=== PATIENT | female | born 1970 | race Caucasian/White ===

== ENCOUNTER 2024-08-09 12:19 | Outpatient (AMB) | payer OTHER, SELFPAY ==
--- NOTE | 2024-08-09 12:26 | A.OFFVIS_ITS ---
Vital Signs 08/09/24 12:29 Height 5 ft 6.34 in Weight 180 lb 5.41 oz BMI 28.8 BP 120/80 Blood Pressure Location Lt brachial Position Sitting Pulse 78 Pulse Source Pulse Oximeter Pulse Oximetry (%) 98 Oxygen Delivery Method Room Air Intake Visit Reasons: OA Intake Note: Patient presents today for a OA follow up. Pt states that her yolis are swollen and joint pain. Allergies Penicillins Allergy (Severe, Verified 08/09/24 12:31) throat swelling HPI HPI OA: Details: I [facility]. Patient was scheduled in follow-up slot. She has a new patient to [facility]. 07/28 she noticed increase swelling in hands, joint pain with knee pain. She went to urgent care who noticed swelling in lymph nodes. Strep throat, flu and covid- 19 negative. Rings are tight on fingers. Uses motrin 400mg BID. 06/25 she had influenza virus. She felt sick for 10 days-14 days. She had fevers for at least 10 days, body aches, cough with phlegm. CXR negative. She was treated with Tamiflu She only had one episode of raynauds a long time ago when she was at her daughter's hockey practice. [facility] Medical History (Updated 08/09/24 @ 13:08 by Nakul Stratton MD) Scoliosis H/O Raynaud's syndrome Family History (Updated 08/09/24 @ 12:33 by Dafne Lopez CMA) Mother Lung cancer Raynauds disease Review of Systems Const All systems reviewed & are unremarkable except as noted in HPI and below Physical Exam Vital Signs: Last Vital Signs Pulse 78 08/09/24 12:29 BP 120/80 08/09/24 12:29 Pulse Ox 98 08/09/24 12:29 Oxygen Delivery Method Room Air 08/09/24 12:29 BMI result Body Mass Index 28.8 Const Other: General: Comfortable CVS: RRR Respiratory: clear to auscultation bilaterally. Good respiratory effort Skin: No lesions seen MSK: Tender to palpate right 5th PIP with synovitis present. Tender left 1st MCP. She is able to blank driller her hands. Tender bilateral knees, ankles and MTPs. Normal range of motion of upper extremities and lower extremities. Assessment & Plan Assessment & Plan (1) Polyarthritis: Comment: In setting of recent influenza infection. She has mild synovitis of right 5th PIP. I am concerned her recent polyarthralgias has led to her developing reactive arthritis. We discussed natural course of reactive arthritis and management. Code(s): M13.0 - Polyarthritis, unspecified Category: Medical Plan: Baseline labs ordered After lab results are back, we will send prescription for naproxen 375 mg b.i.d., which will replace ibuprofen Return to clinic in 2 months or sooner if needed Orders: Orders C Reactive Protein Today M13.0 - Polyarthritis, unspecified Alanine Aminotransferase Today M13.0 - Polyarthritis, unspecified Creatinine Today M13.0 - Polyarthritis, unspecified Erythrocyte Sedimentation Rate Today M13.0 - Polyarthritis, unspecified Aspartate Amino Transferase Today M13.0 - Polyarthritis, unspecified Complete Blood Count Auto Diff Today M13.0 - Polyarthritis, unspecified Coding Level of Care Code New Pt Level 3 (36816) Diagnoses Polyarthritis M13.0
[2024-08-09 12:29] VITALS: BP 120/80; PULSE 78; O2SAT 98; BMI 28.8
== END 2024-08-09 13:06 | disposition home or self-care (01) ==
LOC: HO.RHES 12:19
PROVIDERS: PCP Family Medicine; Visit Provider Internal Medicine Rheumatology
DX: M13.0 Polyarthritis, unspecified (principal)
CPT/HCPCS: 99203

== ENCOUNTER 2024-08-09 12:19 | Outpatient (REF) | payer OTHER, SELFPAY ==
[2024-08-09 18:07] LABS: MANUAL DIFF FLAG NO
[2024-08-09 18:32] LABS: Basophils Absolute Auto 0.1 X10*3/uL (0.0-0.2); Eosinophils Absolute Auto 0.1 X10*3/uL (0.0-0.4); Eosinophils Percent Auto 1.4 % (0-4); Hematocrit 37.9 % (37.0-47.0); Hemoglobin 12.2 g/dl (12.0-16.0); Imm Gran Abs Auto 0.02 X10*3/uL (0.00-0.03); Imm Gran Pct Auto 0.3 % (0.0-0.4); Lymphocytes Absolute Auto 2.4 X10*3/uL (1.2-4.9); Lymphocytes Percent Auto 33.9 % (20-40); Mean Corpuscular HGB Conc 32.2 g/dl (31.0-35.0); Mean Corpuscular Hemoglobin 27.9 pg (27.0-33.0); Mean Corpuscular Volume 86.5 fL (80.0-98.0); Mean Platelet Volume 10.2 fL (9.4-12.3); Monocytes Absolute Auto 0.5 X10*3/uL (0.1-1.2); Monocytes Percent Auto 6.5 % (2-11); Neutrophils Absolute Auto 4.1 x10*3/uL (2.0-8.3); Neutrophils Percent Auto 56.9 % (45-73); Platelet Count 367 X10*3/uL (160-400); Red Blood Count 4.38 X10*6/uL (4.20-5.50); Red Cell Distribution Width 13.6 % (11.0-16.0); White Blood Count 7.1 X10*3/uL (4.8-10.8)
[2024-08-09 18:39] LABS: Alanine Aminotransferase 14 U/L (0-31); Aspartate Amino Transferase 18 U/L (5-31); C Reactive Protein 1.58 mg/dL (< or = 0.50); Estimated Glomerular Filt Rate > 60
[2024-08-09 19:20] LABS: Erythrocyte Sedimentation Rate 22 MM/HR (0-20)
== END 2024-08-09 12:20 | disposition home or self-care (01) ==
LOC: HO.HKASLDS 12:19
PROVIDERS: PCP Family Medicine; Visit Provider Internal Medicine Rheumatology
DX: M13.0 Polyarthritis, unspecified (principal)
CPT/HCPCS: 36415; 82565; 84450; 84460; 85025; 85652; 86140

== ENCOUNTER 2024-10-10 13:55 | Outpatient (AMB) | payer OTHER, SELFPAY ==
--- NOTE | 2024-10-10 13:58 | A.OFFVIS_ITS ---
Vital Signs 10/10/24 13:59 Height 5 ft 6.34 in Weight 186 lb 8.177 oz BMI 29.8 BP 120/68 Blood Pressure Location Lt brachial Position Sitting Pulse 91 Pulse Source Pulse Oximeter Pulse Oximetry (%) 98 Oxygen Delivery Method Room Air Intake Visit Reasons: 2 Months Intake Note: Patient presents today for a OA follow up. Allergies Penicillins Allergy (Severe, Verified 10/10/24 14:01) throat swelling HPI HPI 2 Months: Details: She has had reduction in pain in her right 5th finger. She has improved movement. Left thumb is painful. Morning stiffness 30 minutes. She has been experiencing GERD since starting naproxen. In the past on methylprednisolone she had haves and increase mass on upper back. She did not feel well on prednisone in the past used to treat MS. She had a fall in September. She is currently seeing MS specialist. She has noted lymph nodes enlarged in her neck for a year. No precipitating factor. [facility] Medical History (Updated 10/10/24 @ 14:32 by Nakul Stratton MD) Scoliosis H/O Raynaud's syndrome Family History (Updated 08/09/24 @ 12:33 by Dafne Lopez CMA) Mother Lung cancer Raynauds disease Physical Exam Vital Signs: Last Vital Signs Pulse 91 10/10/24 13:59 BP 120/68 10/10/24 13:59 Pulse Ox 98 10/10/24 13:59 Oxygen Delivery Method Room Air 10/10/24 13:59 BMI result Body Mass Index 29.8 Const Other: General: Comfortable CVS: RRR Respiratory: clear to auscultation bilaterally. Good respiratory effort Lymph nodes: Prominent right submandibular lymph node enlargement with pain on palpation. Palpable left submandibular lymph node. Skin: No lesions seen MSK: Tender to palpate right 5th PIP without synovitis present. Tender left 1st MCP. She is able to cook mayonnaise her hands. Tender bilateral ankles. Normal range of motion of upper extremities and lower extremities. Assessment & Plan Assessment & Plan (1) Reactive arthritis: Comment: In setting of influenza 07/2024 causing synovitis and pain in hands. Improvement on naproxen but she is experiencing GERD. Code(s): M02.30 - Juan Antonio's disease, unspecified site Category: Medical Plan: PPI omeprazole prescribed. Patient will call office when GERD symptoms have resolved. She would like to avoid prednisone if possible to treat inflammatory arthritis due to previous history of experiencing side effects on systemic glucocorticoids. I will then prescribed celecoxib 200 mg twice a day with GI prophylaxis omeprazole 20 mg daily while on NSAID. Return to clinic in 3 months (2) Submandibular lymphadenopathy: Comment: 1 year history Code(s): R59.0 - Localized enlarged lymph nodes Category: Medical Plan: PCP follow up with consideration of soft tissue ultrasound neck for further evaluation Medications: New omeprazole Take 1 tablet in the morning on empty stomach. 20 mg PO DAILY 30 caps 1RF Discontinued naproxen Take 1 tablet twice a day with food. Avoid ibuprofen. Okay to take acetaminophen if needed for pain control. Discontinued Reason: Doctor's Order 375 mg PO BID 60 tabs 2RF Coding Level of Care Code Est Pt Level 4 (37621) Complex EM visit Add On G2211 Diagnoses Reactive arthritis M02.30 Submandibular lymphadenopathy R59.0
[2024-10-10 13:59] VITALS: BP 120/68; PULSE 91; O2SAT 98; BMI 29.8
--- OUTSIDE RECORDS SUMMARY | 2024-10-10 14:26 | XMS_ITS ---
Author Name [facility] Organization Unknown History of Medication Use Medication Directions Dispensed Refills Start Date End Date Stat us Lidocaine ViscousTak e 15 ml (mucous membrane) every 3 hours PRN for 5 days (swish and spit)[id number] 3 hoursmucous [id number]% 05/23/2023 active No medication inform ation recorded active Problems Problem Status Onset Date Problem Type Date of Resoluti on Source Urinary tract infection, site not specified active 2023-12-22 ProblemAct [facility]_PHYSON E Multiple sclerosis active ProblemAct CT_PHYSONE Encounters Encounter Type Encounter Reason Primary Diagnosis Location Date Ambulatory [facility] 05/23/2023 Care Team Organization Name Specialty Phone Email Start Date End Da te [facility] Not Disclosed Primary Care 06/12/2023 [facility] Not Disclosed Primary Care 06/12/2023 [facility] 024 05/23/2023 [facility] 024 [facility] provided No Primary Care 04/19/2022 01/09/2024 [facility], [facility]. No provided Primary Care 03/22/2022 022
--- OUTSIDE RECORDS SUMMARY | 2024-10-10 14:26 | XMS_ITS | Patient Health Record ---
Author Organization [employer] [facility] Address [address] [place] [address] Care Team Providers Care Kitchen Helper Name Role Phone Regi Barrow Unavailable [phone] Reason For Referral No Information Medications Medication SIG (Take, Route, Fr equency, Duration) Notes Start Date End Date Status Provigil 200MG 1 ORAL daily for -3 Simon-MJ 09/06/2012 Active Lyrica 150MG 1 ORAL three times daily for -3 Simon-MJ 09/06 Active Problems Problem Type SNOMED Code ICD Code Onset Dates Problem Status W/U Status Risk Notes Problem Gynecological examination normal ([id number]) Routine gynecological examination (V72.31) Active confirmed Major Plan Of Treatment No Information Insurance Providers Payer Name Payer Address Payer Phone Subscriber Number Group Number Insured Name Patient Relationship to Insured Coverage Start Date Coverage End Date [employer] [address] [address] [place] [address] [id number] BELA SAPP Self - patient is the insured
== END 2024-10-10 14:29 | disposition home or self-care (01) ==
PROVIDERS: PCP Family Medicine; Visit Provider Internal Medicine Rheumatology
DX: M02.30 Reiter's disease, unspecified site (principal); R59.0 Localized enlarged lymph nodes
CPT/HCPCS: 99214; G2211

== ENCOUNTER 2024-12-26 12:58 | Outpatient (AMB) | payer OTHER, SELFPAY ==
--- NOTE | 2024-12-26 13:03 | MHC.OFFVIS ---
Vital Signs 12/26/24 13:04 Height 5 ft 6 in Weight 190 lb 8 oz BMI 30.7 BP 130/80 Blood Pressure Location Rt brachial Position Sitting Pulse 88 Pulse Source Pulse Oximeter Pulse Oximetry (%) 99 Oxygen Delivery Method Room Air Intake Visit Reasons: 3 Months Intake Note: Patient presents today for a OA follow up. c Accompanied by: Self / Same As Patient Allergies Penicillins Allergy (Severe, Verified 12/26/24 13:04) throat swelling HPI HPI 3 Months: Details: SHe has pain in bilateral wrists, ankles, knees and upper back. Having a hard time getting rings off. She has paraesthesia in her face, lips, left hand. In the past she had an EMG left arm for workup of left arm radiculopathy. She denies having carpal tunnel syndrome. Eventually left arm radicular symptoms resolved. Ultrasound neck soft tissue showed enlarged lymph nodes likely reactive. [facility] Medical History Scoliosis H/O Raynaud's syndrome Family History Mother Lung cancer Raynauds disease Physical Exam Vital Signs: Last Vital Signs Pulse 88 12/26/24 13:04 BP 130/80 12/26/24 13:04 Pulse Ox 99 12/26/24 13:04 Oxygen Delivery Method Room Air 12/26/24 13:04 BMI result Body Mass Index 30.7 Const Other: General: Comfortable CVS: RRR Respiratory: clear to auscultation bilaterally. Good respiratory effort Lymph nodes: No cervical lymphadenopathy palpated Skin: No lesions seen MSK: Tender bilateral wrists. No synovitis. She is able to conveyor monitor her hands. Tender bilateral ankles. Normal range of motion of upper extremities and lower extremities. Assessment & Plan Assessment & Plan (1) Reactive arthritis: Comment: In setting of influenza 07/2024 causing synovitis and pain in hands. She does not have synovitis on exam but continues to have bilateral wrists pain. GERD has resolved. We discussed treating her joint symptoms with NSAID. Code(s): M02.30 - Juan Antonio's disease, unspecified site Category: Medical Plan: X-ray bilateral wrists ordered Labs prior to starting NSAID ordered Meloxicam 15 mg daily ordered Return to clinic in 3 months (2) Bilateral wrist pain: Code(s): M25.531 - Pain in right wrist; M25.532 - Pain in left wrist Category: Medical Plan: See above Orders: Orders XR Wrist Ajay min 3V Today M13.0 - Polyarthritis, unspecified, M25.531 - Pain in right wrist, M25.532 - Pain in left wrist Alanine Aminotransferase Today M13.0 - Polyarthritis, unspecified Aspartate Amino Transferase Today M13.0 - Polyarthritis, unspecified C Reactive Protein Today Z79.899 - Other garage hand (current) drug therapy Creatinine Today M13.0 - Polyarthritis, unspecified Erythrocyte Sedimentation Rate Today Z79.899 - Other garage hand (current) drug therapy Medications: New meloxicam Take with food 15 mg PO DAILY 30 tabs 2RF Coding Level of Care Code Est Pt Level 4 (65404) Complex EM visit Add On G2211 Diagnoses Reactive arthritis M02.30 Bilateral wrist pain M25.531; M25.532 Time Spent (min) 20
[2024-12-26 13:04] VITALS: BP 130/80; PULSE 88; O2SAT 99; BMI 30.7
--- OUTSIDE RECORDS SUMMARY | 2024-12-26 13:31 | XMS_ITS | Encounter Summary ---
Author Organization [facility] Address [address] [place] [address] Phone Care Team Providers Care Infusion Pharmacist Name Role Phone Khadra Barba MD Primary Care Provider Shaggy Hopkins MD Unavailable [phone] Danny Emanuel MD Primary Care Provider [phone] Encounter Details Date Type Department Care Team (Late st Contact Info) Description 12/06/2016 Procedure Pass [facility] MR Imaging, [address] [place] [address] Social History Tobacco Use Types Packs/Day Years Used Date Smoking Tobacco: Never Alcohol Use Standard Drinks/Week Comments No 0 (1 standard drink = 0.6 oz pur e alcohol) Comments Unknown Sex and Gender Information Value Date Recorded Sex Assigned at Female 10/08/2019 1:35 PM EDT Legal Sex Female 7:37 PM EST Gender Identity Not on file Sexual Orientation Not on file documented as of this encounter Plan of Treatment Upcoming Encounters Date Type Department Care Team (Late st Contact Info) Description 10/19/2024 Procedure Pass [facility] MR Imaging, [address] [place] [address] 10/19/2024 Procedure Pass [facility] MR Imaging, [address] [place] [address] 10/19/2024 Procedure Pass [facility] MR Imaging, [address] [place] [address] 05/01/2025 10:40 AM EST Appointment [facility] MR Imaging, [address] [place] [address] Johnson Ulloa MD [address] [address] [email or web address] 05/01/2025 2:00 PM EST Office Visit [facility], Department of Neurology [address] [place] [address] Johnson Ulloa MD [address] [address] [email or web address] documented as of this encounter Visit Diagnoses Not on filedocumented in this encounter Care Teams Infusion Pharmacist Relationship Specialty Start Date End Date Khadra Barba MD [address] [place] [address] PCP - General 09/26/14 09/12/23 Danny Emanuel MD [address] [place] [address] PCP - General Internal Medicine 09/13/23 Shaggy Hopkins MD [address] [address] Historical LMR Provider 10/03/14 documented as of this encounter Additional Source Comments The information contained in this document represents components of the legal health record. It is not the complete legal health record.[facility]
--- OUTSIDE RECORDS SUMMARY | 2024-12-26 13:31 | XMS_ITS | Patient Health Record ---
Author Organization [facility] Address [address] [place] [address] Care Team Providers Care Recruiter Coordinator Name Role Phone Regi Barrow Unavailable [phone] Reason For Referral No Information Medications Medication SIG (Take, Route, Fr equency, Duration) Notes Start Date End Date Status Provigil 200MG 1 ORAL daily; Duration: -3 Simon-MJ 09/07/19 13 Active Lyrica 150MG 1 ORAL three times d aily; Duration: -3 Simon-MJ 09/06/2012 Active Problems Problem Type SNOMED Code ICD Code Onset Dates Problem Status W/U Status Risk Notes Problem Routine gynecological examination (V72.31) Active confirmed Major Plan Of Treatment No Information Insurance Providers Payer Name Payer Address Payer Phone Subscriber Number Group Number Insured Name Patient Relationship to Insured Coverage Start Date Coverage End Date [employer] [address] [address] [place] Hernandez, [place] [address] [id number] BELA SAPP Self - patient is the insured
--- OUTSIDE RECORDS SUMMARY | 2024-12-26 13:31 | XMS_ITS ---
Author Name [facility] Organization Unknown History of Medication Use Medication Directions Dispensed Refills Start Date End Date Stat us Lidocaine ViscousTak e 15 ml (mucous membrane) every 3 hours PRN for 5 days (swish and spit)[id number] 3 hoursmucous btetyney9hhpbuiknvn2% 05/23/2023 active No medication inform ation recorded [...] Care 024 05/23/2023 [facility] 024 [facility] provided No Primary Care 04/19/2022 01/09/2024 [facility], [facility]. No provided Primary Care 03/22/2022 022
== END 2024-12-26 13:39 | disposition home or self-care (01) ==
LOC: HO.RHES 12:58
PROVIDERS: PCP Family Medicine; Visit Provider Internal Medicine Rheumatology
DX: M02.30 Reiter's disease, unspecified site (principal); M25.531 Pain in right wrist; M25.532 Pain in left wrist
CPT/HCPCS: 99214; G2211

== ENCOUNTER 2024-12-26 12:58 | Outpatient (REF) | payer OTHER, SELFPAY ==
[2024-12-26 18:56] LABS: Alanine Aminotransferase 24 U/L (0-31); Aspartate Amino Transferase 22 U/L (5-31); Estimated Glomerular Filt Rate > 60
== END 2024-12-26 12:59 | disposition home or self-care (01) ==
LOC: HO.HKASLDS 12:58
PROVIDERS: PCP Family Medicine; Visit Provider Internal Medicine Rheumatology
DX: M25.531 Pain in right wrist (principal); M25.532 Pain in left wrist; M02.331 Reiter's disease, right wrist; M02.332 Reiter's disease, left wrist; M25.562 Pain in left knee; M25.561 Pain in right knee; M54.9 Dorsalgia, unspecified; M13.0 Polyarthritis, unspecified; Z79.899 Other long term (current) drug therapy
CPT/HCPCS: 36415; 82565; 84450; 84460; 85652; 86140

== ENCOUNTER 2025-01-30 13:00 | Outpatient (REF) | payer OTHER, SELFPAY ==
--- NOTE | ~2025-01-30 | XR_ITS ---
Exam: XR WRIST 3 OR MORE VIEWS BILATERAL, bilateral hand x-rays TECHNIQUE: Four views upper extremity, bilateral wrists INDICATION: M13.0 - Polyarthritis, unspecified COMPARISON: None available. FINDINGS: RIGHT WRIST: There is no visible fracture line, joint diastases, offset, or definite erosions. There is faint chondrocalcinosis present in the lunotriquetral joint. LEFT WRIST: There is no visible fracture line, joint diastases, offset, definite erosions or other abnormalities. XR/XR Wrist Ajay min 3V IMPRESSION: Right wrist: Faint chondrocalcinosis is visible along the lunotriquetral joint on the scaphoid view Left wrist: Unremarkable Electronically signed by: Hank Burris MD 01/30/2025 01:31 PM EDT
--- OUTSIDE RECORDS SUMMARY | 2025-01-30 16:01 | XMS_ITS | Encounter Summary ---
Author Organization [facility] Address [address] [place] [address] Phone Care Team Providers Care Service Team Leader Name Role Phone Khadra Barba MD Primary Care Provider Shaggy Hopkins MD Unavailable [phone] Danny Emanuel MD Primary Care Provider [phone] Encounter Details Date Type Department Care Team (Late st Contact Info) Description 08/07/2018 Procedure Pass [facility] MR Imaging, [address] [place] [address] Social History Tobacco Use Types Packs/Day Years Used Date Smoking Tobacco: Never Smokeless Tobacco: Never Alcohol Use Standard Drinks/Week Comments [...] st Contact Info) Description 10/19/2024 Procedure Pass [facility] MR Imaging, [address] [place] [address] 10/19/2024 Procedure Pass [facility] MR Imaging, [address] [place] [address] 10/19/2024 Procedure Pass [facility] MR Imaging, [address] [place] [address] 02/05/2025 5:20 PM EDT Appointment [facility] MR Imaging, [address] [place] [address] Johnson Ulloa MD [address] [place] [address] [email or web address] 02/07/2025 8:30 AM EDT Telemedicine [facility], Department of Neurology [address] [place] [address] Johnson Ulloa MD [address] [place] [address] [email or web address] documented as of this encounter Visit Diagnoses Not on filedocumented in this encounter Care Teams Service Team Leader Relationship Specialty Start Date End Date Khadra Barba MD [address] [place] [address] PCP - General 09/26/14 09/12/23 Danny Emanuel MD [address] [place] [address] PCP - General Internal Medicine 09/13/23 Shaggy Hopkins MD [address] [address] Historical LMR Provider 10/03/14 documented as of this encounter Additional Source Comments The information contained in this document represents components of the legal health record. It is not the complete legal health record.[facility]
--- OUTSIDE RECORDS SUMMARY | 2025-01-30 16:01 | XMS_ITS | Encounter Summary ---
Author Organization [facility] Address [address] [place] [address] Phone Care Team Providers Care Physics Department Chair Name Role Phone Khadra Barba MD Primary Care Provider Shaggy Hopkins MD Unavailable [phone] Danny Emanuel MD Primary Care Provider [phone] Encounter Details Date Type Department Care Team (Late st Contact Info) Description 07/27/2023 Procedure Pass [facility] MR Imaging, [address] [place] [address] Social History Tobacco Use Types Packs/Day Years Used Date Smoking Tobacco: Never Smokeless Tobacco: Never Alcohol Use Standard Drinks/Week Comments No 0 (1 standard drink = 0.6 oz pur e alcohol) Education Answer Date Recorded Are you interested in more education? Not on jeff e 09/16/2022 Are you concerned about learning? Not on file 09/16/2022 No 09/16/2022 No 09/16/2022 Digital Access Answer Date Recorded No 10/18/2022 No 10/18/2022 Reliable internet access at home? Not on file 10/18/2022 Device with a working camera? Not on file Comments No Sex and Gender Information Value Date Recorded Sex Assigned at Female 10/08/2019 1:35 PM EDT Legal Sex Female 7:37 PM EST Gender Identity Not on file Sexual Orientation Not on file documented as of this encounter Plan of Treatment Upcoming Encounters Date Type Department Care Team (Late st Contact Info) Description 10/19/2024 Procedure Pass [facility] MR Imaging, [address] [place] [address] 10/19/2024 Procedure Pass [facility] MR Imaging, [address] [place] [address] 10/19/2024 Procedure Pass [facility] MR Imaging, [address] [place] [address] 02/05/2025 5:20 PM EDT Appointment [facility] MR Imaging, [address] [place] [address] Johnson Ulloa MD [address] [address] [email or web address] 02/07/2025 8:30 AM EDT Telemedicine [facility], Department of Neurology [address] [place] [address] Johnson Ulloa MD [address] [address] [email or web address] documented as of this encounter Visit Diagnoses Not on filedocumented in this encounter Additional Health Concerns Assessment Noted Time PHQ-2 Depression Total Score: 0 08/27/19 21 4:02 PM EDT documented as of this encounter Care Teams Physics Department Chair Relationship Specialty Start Date End Date Khadra Barba MD [address] [place] [address] PCP - General 09/26/14 09/12/23 Danny Emanuel MD [address] [place] [address] PCP - General Internal Medicine 09/13/23 Shaggy Hopkins MD 1 [facility] [address] [place] [address] Historical LMR Provider 10/03/14 documented as of this encounter Additional Source Comments The information contained in this document represents components of the legal health record. It is not the complete legal health record.[facility]
--- OUTSIDE RECORDS SUMMARY | 2025-01-30 16:01 | XMS_ITS | Encounter Summary ---
Author Organization [facility] Address [address] [place] [address] Phone Care Team Providers Care Dining Room Supervisor Name Role Phone Khadra Barba MD Primary Care Provider Shaggy Hopkins MD Unavailable [phone] Danny Emanuel MD Primary Care Provider [phone] Encounter Details Date Type Department Care Team (Late st Contact Info) Description 07/15/2020 Procedure Pass [facility] MR Imaging, [address] [place] [address] Social History Tobacco Use Types Packs/Day Years [...] st Contact Info) Description 10/19/2024 Procedure Pass [facility] MR Imaging, [address] [place] [address] 10/19/2024 Procedure Pass [facility] MR Imaging, [address] [place] [address] 10/19/2024 Procedure Pass [facility] MR Imaging, [address] [place] [address] 02/05/2025 5:20 PM EDT Appointment [facility] MR Imaging, [address] [place] [address] Johnson Ulloa MD [address] [place] [address] [email or web address] 02/07/2025 8:30 AM EDT Telemedicine [facility], Department of Neurology [address] [place] [address] Johnson Ulloa MD [address] [place] [address] [email or web address] documented as of this encounter Visit Diagnoses Not on filedocumented in this encounter Care Teams Dining Room Supervisor Relationship Specialty Start Date End Date Khadra Barba MD [address] [place] [address] PCP - General 09/26/14 09/12/23 Danny Emanuel MD [address] [place] [address] PCP - General Internal Medicine 09/13/23 Shaggy Hopkins MD [address] [address] Historical LMR Provider 10/03/14 documented as of this encounter Additional Source Comments The information contained in this document represents components of the legal health record. It is not the complete legal health record.[facility]
--- OUTSIDE RECORDS SUMMARY | 2025-01-30 16:01 | XMS_ITS | Encounter Summary ---
Author Organization [facility] Address [address] [place] [address] Phone Care Team Providers Care Application Architect Manager Name Role Phone Khadra Barba MD Primary Care Provider Shaggy Hopkins MD Unavailable [phone] Danny Emanuel MD Primary Care Provider [phone] Encounter Details Date Type Department Care Team (Late st Contact Info) Description 12/27/2017 Procedure Pass [facility] MR Imaging, [place] [address] [place] [address] Social History Tobacco Use Types Packs/Day Years [...] st Contact Info) Description 10/19/2024 Procedure Pass [facility] MR Imaging, [place] [address] [place] [address] 10/19/2024 Procedure Pass [facility] MR Imaging, [place] [address] [place] [address] 10/19/2024 Procedure Pass [facility] MR Imaging, [place] [address] [place] [address] 02/05/2025 5:20 PM EDT Appointment [facility] MR Imaging, [place] [address] [place] [address] Johnson Ulloa MD [address] [place] [address] [email or web address] 02/07/2025 8:30 AM EDT Telemedicine [facility] and Women[facility], Department of Neurology [address] [place] [address] Johnson Ulloa MD [address] [place] [address] [email or web address] documented as of this encounter Visit Diagnoses Not on filedocumented in this encounter Care Teams Application Architect Manager Relationship Specialty Start Date End Date Khadra Barba MD [address] [place] [address] PCP - General 09/26/14 09/12/23 Danny Emanuel MD [address] [place] [address] PCP - General Internal Medicine 09/13/23 Shaggy Hopkins MD [address] [address] Historical LMR Provider 10/03/14 documented as of this encounter Additional Source Comments The information contained in this document represents components of the legal health record. It is not the complete legal health record.[facility]
--- OUTSIDE RECORDS SUMMARY | 2025-01-30 16:01 | XMS_ITS | Encounter Summary ---
Author Organization [facility] Address [address] [place] [address] Phone Care Team Providers Care Grinder Carbon Plant Name Role Phone Khadra Barba MD Primary Care Provider Shaggy Hopkins MD Unavailable [phone] Danny Emanuel MD Primary Care Provider Encounter Details Date Type Department Care Team (Late st Contact Info) Description 03/19/2021 Procedure Pass [facility] Radiology [address] [facility] [address] [place] [address] Social History Tobacco Use Types Packs/Day Years Used Date Smoking Tobacco: Never Smokeless Tobacco: Never Alcohol Use Standard Drinks/Week Comments No 0 (1 standard drink = 0.6 oz pur e alcohol) Comments No Sex and Gender Information Value Date Recorded Sex Assigned at Female 10/08/2019 1:35 PM EDT Legal Sex Female 7:37 PM EST Gender Identity Not on file Sexual Orientation Not on file documented as of this encounter Plan of Treatment Upcoming Encounters Date Type Department Care Team (Late st Contact Info) Description 10/19/2024 Procedure Pass [facility] MR Imaging, [place] [address] [place] [address] 10/19/2024 Procedure Pass [facility] MR Imaging, [place] [address] [place] [address] 10/19/2024 Procedure Pass [facility] MR Imaging, [place] [address] [place] [address] 02/05/2025 5:20 PM EDT Appointment [facility] MR Imaging, [place] [address] [place] [address] Johnson Ulloa MD [address] [place] [address] [email or web address] 02/07/2025 8:30 AM EDT Telemedicine [facility] Women[facility], Department of Neurology [address] [place] [address] Johnson Ulloa MD [address] [place] [address] [email or web address] documented as of this encounter Visit Diagnoses Not on filedocumented in this encounter Additional Health Concerns Assessment Noted Time PHQ-2 Depression Total Score: 0 08/27/19 21 4:02 PM EDT documented as of this encounter Care Teams Grinder Carbon Plant Relationship Specialty Start Date End Date Khadra Barba MD [address] [place] [address] PCP - General 09/26/14 09/12/23 Danny Emanuel MD [address] [place] [address] PCP - General Internal Medicine 09/13/23 Shaggy Hopkins MD [address] [address] Historical LMR Provider 10/03/14 documented as of this encounter Additional Source Comments The information contained in this document represents components of the legal health record. It is not the complete legal health record.[facility]
--- OUTSIDE RECORDS SUMMARY | 2025-01-30 16:01 | XMS_ITS | Encounter Summary ---
Author Organization [facility] Address [address] [place] [address] Phone Care Team Providers Care Roof Assembler Name Role Phone Khadra Barba MD Primary Care Provider Shaggy Hopkins MD Unavailable [phone] Danny Emanuel MD Primary Care Provider [phone] Encounter Details Date Type Department Care Team (Late st Contact Info) Description 08/07/2018 Procedure Pass [facility] MR Imaging, [place] [address] [place] [address] Social History Tobacco Use Types Packs/Day Years [...] st Contact Info) Description 10/19/2024 Procedure Pass [facility] MR Imaging, [place] [address] [place] [address] 10/19/2024 Procedure Pass [facility] MR Imaging, [place] [address] [place] [address] 10/19/2024 Procedure Pass [facility] MR Imaging, [place] [address] [place] [address] 02/05/2025 5:20 PM EDT Appointment [facility] MR Imaging, [place] [address] [place] [address] Johnson Ulloa MD [address] [place] [address] [email or web address] 02/07/2025 8:30 AM EDT Telemedicine [facility] and [facility], Department of Neurology [address] [place] [address] Johnson Ulloa MD [address] [place] [address] [email or web address] documented as of this encounter Visit Diagnoses Not on filedocumented in this encounter Care Teams Roof Assembler Relationship Specialty Start Date End Date Khadra Barba MD [address] [place] [address] PCP - General 09/26/14 09/12/23 Danny Emanuel MD [address] [place] [address] PCP - General Internal Medicine 09/13/23 Shaggy Hopkins MD [address] [address] Historical LMR Provider 10/03/14 documented as of this encounter Additional Source Comments The information contained in this document represents components of the legal health record. It is not the complete legal health record.[facility]
--- OUTSIDE RECORDS SUMMARY | 2025-01-30 16:01 | XMS_ITS | Encounter Summary ---
Author Organization [facility] Address [address] [place] [address] Phone Care Team Providers Care Egg Breaker Name Role Phone Khadra Barba MD Primary Care Provider Shaggy Hopkins MD Unavailable [phone] Danny Emanuel MD Primary Care Provider [phone] Reason for Visit * Reason Onset Date Comments Medication Prior Authorization 04/09/2016 Encounter Details Date Type Department Care Team (Late st Contact Info) Description 04/09/2016 Telephone [facility] [address] [email or web address] Medication Prior Authorization Social History Tobacco Use Types Packs/Day Years Used Date Smoking Tobacco: Never Comments Unknown Sex and Gender Information Value Date Recorded Sex Assigned at Female 10/08/2019 1:35 PM EDT Legal Sex Female 7:37 PM EST Gender Identity Not on file Sexual Orientation Not on file documented as of this encounter Progress Notes * Shaggy Hopkins MD - 04/29/2016 2:20 PM EST Called to discuss rituximab and whether or not she was going to start with Sasha and left messagewith family member that I called. * Paulo Danielle - 04/09/2016 7:38 AM EST Per Aeloida Kolb PA denial overturned after P2P. Martine MURRAY #[id number]. Valid: 03/28/2016--09/25/2016. 6 infusions approved. --BD documented in this encounter Plan of Treatment Upcoming Encounters Date Type Department Care Team (Late st Contact Info) Description 10/19/2024 Procedure Pass [facility] MR Imaging, [facility] [address] [place] [address] 10/19/2024 Procedure Pass [facility] MR Imaging, [facility] [address] [place] [address] 10/19/2024 Procedure Pass [facility] MR Imaging, [facility] [address] [place] [address] 02/05/2025 5:20 PM EDT Appointment [facility] Imaging, [place] [address] Johnson Ulloa MD [address] [place] [address] [email or web address] 02/07/2025 8:30 AM EDT Telemedicine [facility] and [facility], Department of Neurology [address] [place] [address] Johnson Ulloa MD [address] [place] [address] [email or web address] documented as of this encounter Visit Diagnoses Not on filedocumented in this encounter Care Teams Egg Breaker Relationship Specialty Start Date End Date Khadra Barba MD [address] [place] [address] PCP - General 09/26/14 09/12/23 Danny Emanuel MD [address] [place] [address] PCP - General Internal Medicine 09/13/23 Shaggy Hopkins MD 1 [place] [address] Historical LMR Provider 10/03/14 documented as of this encounter Additional Source Comments The information contained in this document represents components of the legal health record. It is not the complete legal health record.[facility]
--- OUTSIDE RECORDS SUMMARY | 2025-01-30 16:01 | XMS_ITS | Encounter Summary ---
Author Organization [facility] Address [address] [place] [address] Phone Care Team Providers Care Astrophysics Teacher Name Role Phone Khadra Barba MD Primary Care Provider Shaggy Hopkins MD Unavailable [phone] Danny Emanuel MD Primary Care Provider [phone] Encounter Details Date Type Department Care Team (Late st Contact Info) Description 12/27/2017 Procedure Pass [facility] MR Imaging, [place] [address] [place] [address] Social History Tobacco Use Types Packs/Day Years [...] st Contact Info) Description 10/19/2024 Procedure Pass [facility] MR Imaging, [place] [address] [place] [address] 10/19/2024 Procedure Pass [facility] MR Imaging, [place] [address] [place] [address] 10/19/2024 Procedure Pass [facility] MR Imaging, [place] [address] [place] [address] 02/05/2025 5:20 PM EDT Appointment [facility] MR Imaging, [place] [address] [place] [address] Johnson Ulloa MD [address] [place] [address] [email or web address] 02/07/2025 8:30 AM EDT Telemedicine [facility] and [facility], Department of Neurology [address] [place] [address] Johnson Ulloa MD [address] [place] [address] [email or web address] documented as of this encounter Visit Diagnoses Not on filedocumented in this encounter Care Teams Astrophysics Teacher Relationship Specialty Start Date End Date Khadra Barba MD [address] [place] [address] PCP - General 09/26/14 09/12/23 Danny Emanuel MD [address] [place] [address] PCP - General Internal Medicine 09/13/23 Shaggy Hopkins MD [address] [address] Historical LMR Provider 10/03/14 documented as of this encounter Additional Source Comments The information contained in this document represents components of the legal health record. It is not the complete legal health record.[facility]
--- OUTSIDE RECORDS SUMMARY | 2025-01-30 16:01 | XMS_ITS | Encounter Summary ---
Author Organization [facility] Address [address] [place] [address] Phone Care Team Providers Care Cash Person Name Role Phone Khadra Barba MD Primary Care Provider Shaggy Hopkins MD Unavailable [phone] Danny Emanuel MD Primary Care Provider [phone] Encounter Details Date Type Department Care Team (Late st Contact Info) Description 09/04/2020 Procedure Pass [facility] [address] [place] [address] Social History Tobacco Use Types Packs/Day Years [...] st Contact Info) Description 10/19/2024 Procedure Pass [facility] MR Imaging, [place] [address] [place] [address] 10/19/2024 Procedure Pass [facility] MR Imaging, [place] [address] [place] [address] 10/19/2024 Procedure Pass [facility] MR Imaging, [place] [address] [place] [address] 02/05/2025 5:20 PM EDT Appointment [facility] MR Imaging, [place] [address] [place] [address] Johnson Ulloa MD [address] [place] [address] [email or web address] 02/07/2025 8:30 AM EDT Telemedicine [facility], Department of Neurology [address] [place] [address] Johnson Ulloa MD [address] [place] [address] [email or web address] documented as of this encounter Visit Diagnoses Not on filedocumented in this encounter Additional Health Concerns Assessment Noted Time PHQ-2 Depression Total Score: 0 08/27/19 21 4:02 PM EDT documented as of this encounter Care Teams Cash Person Relationship Specialty Start Date End Date Khadra Barba MD [address] [place] [address] PCP - General 09/26/14 09/12/23 Danny Emanuel MD [address] [place] [address] PCP - General Internal Medicine 09/13/23 Shaggy Hopkins MD [address] [address] Historical LMR Provider 10/03/14 documented as of this encounter Additional Source Comments The information contained in this document represents components of the legal health record. It is not the complete legal health record.[facility]
--- OUTSIDE RECORDS SUMMARY | 2025-01-30 16:01 | XMS_ITS | Encounter Summary ---
Author Organization [facility] Address [address] [place] [address] Phone Care Team Providers Care Locomotive Engineer Name Role Phone Khadra Barba MD Primary Care Provider Shaggy Hopkins MD Unavailable [phone] Danny Emanuel MD Primary Care Provider [phone] Encounter Details Date Type Department Care Team (Late st Contact Info) Description 12/06/2016 Procedure Pass [facility] MR Imaging, [place] [address] [place] [address] Social History Tobacco Use Types Packs/Day Years [...] st Contact Info) Description 10/19/2024 Procedure Pass [facility] MR Imaging, [place] [address] [place] [address] 10/19/2024 Procedure Pass [facility] MR Imaging, [place] [address] [place] [address] 10/19/2024 Procedure Pass [facility] MR Imaging, [place] [address] [place] [address] 02/05/2025 5:20 PM EDT Appointment [facility] MR Imaging, [place] [address] [place] [address] Johnson Ulloa MD [address] [place] [address] [email or web address] 02/07/2025 8:30 AM EDT Telemedicine [facility], Department of Neurology [address] [place] [address] Johnson Ulloa MD [address] [address] [email or web address] documented as of this encounter Visit Diagnoses Not on filedocumented in this encounter Care Teams Locomotive Engineer Relationship Specialty Start Date End Date Khadra Barba MD [address] [place] [address] PCP - General 09/26/14 09/12/23 Danny Emanuel MD [address] [place] [address] PCP - General Internal Medicine 09/13/23 Shaggy Hopkins MD [address] [address] Historical LMR Provider 10/03/14 documented as of this encounter Additional Source Comments The information contained in this document represents components of the legal health record. It is not the complete legal health record.[facility]
--- OUTSIDE RECORDS SUMMARY | 2025-01-30 16:01 | XMS_ITS | Encounter Summary ---
Author Organization [facility] Address [address] [place] [address] Phone Care Team Providers Care Clothing Manager Name Role Phone Kharda Barba MD Primary Care Provider Shaggy Hopkins MD Unavailable [phone] Danny Emanuel MD Primary Care Provider [phone] Encounter Details Date Type Department Care Team (Late st Contact Info) Description 09/25/2020 Procedure Pass [facility], [facility] [address] [place] [address] Social History Tobacco Use Types Packs/Day Years [...] on file documented as of this encounter Functional Status * Calculated C-SSRS Risk Score (Lifetime/Recent) Answer Date of Assessment Author No Risk Indicated 09/25/2020 4:05 PM EDT Cameron Maurer RN * [place] Suicide Severity Rating Scale (Screener/Recent Self-Report) Question Answer Date of Assessment Author 1. Wish to be (Past 1 Month) No 021 4:05 PM EDT Cameron Maurer RN 2. Non-Specific Active Suici artur Thoughts (Past 1 Month) No 09/25/2020 4:05 PM EDT Cameron Maurer, RN 6. Suicidal Behavior (Lifetime) No 1 4:05 PM EDT Cameron Maurer RN documented as of this encounter Plan of Treatment Upcoming Encounters Date Type Department Care Team (Late st Contact Info) Description 10/19/2024 Procedure Pass [facility] MR Imaging, [place] [address] [place] [address] 10/19/2024 Procedure Pass [facility] MR Imaging, [place] [address] [place] [address] 10/19/2024 Procedure Pass [facility] MR Imaging, [place] [address] [place] [address] 02/05/2025 5:20 PM EDT Appointment [facility] MR Imaging, [place] [address] [place] [address] Johnson Ulloa MD [address] [place] [address] [email or web address] 02/07/2025 8:30 AM EDT Telemedicine [facility], Department of Neurology [address] [place] [address] Johnson Ulloa MD [address] [place] [address] [email or web address] documented as of this encounter Visit Diagnoses Not on filedocumented in this encounter Additional Health Concerns Assessment Noted Time PHQ-2 Depression Total Score: 0 08/27/19 21 4:02 PM EDT documented as of this encounter Care Teams Clothing Manager Relationship Specialty Start Date End Date Khadra Barba MD [address] [place] [address] PCP - General 09/26/14 09/12/23 Danny Emanuel MD [address] [place] [address] PCP - General Internal Medicine 09/13/23 Shaggy Hopkins MD 1 [place] [address] Historical LMR Provider 10/03/14 documented as of this encounter Additional Source Comments The information contained in this document represents components of the legal health record. It is not the complete legal health record.[facility]
--- OUTSIDE RECORDS SUMMARY | 2025-01-30 16:01 | XMS_ITS | Encounter Summary ---
Author Organization [facility] Address [address] [place] [address] Phone Care Team Providers Care Cut Off Saw Grader Name Role Phone Shaggy Hopkins MD Unavailable [phone] Danny Emanuel MD Primary Care Provider [phone] Encounter Details Date Type Department Care Team (Late st Contact Info) Description 09/13/2023 Procedure Pass [address] [address] Social History Tobacco Use Types Packs/Day Years [...] st Contact Info) Description 10/19/2024 Procedure Pass [facility] MR Imaging, [place] [address] [place] [address] 10/19/2024 Procedure Pass [facility] MR Imaging, [place] [address] [place] [address] 10/19/2024 Procedure Pass [facility] MR Imaging, [place] [address] [place] [address] 02/05/2025 5:20 PM EDT Appointment [facility] Imaging, [place] [address] [place] [address] Johnson Ulloa MD [address] [address] [email or web address] 02/07/2025 8:30 AM EDT Telemedicine [facility] and Women[facility], Department of Neurology 60 [place] [address] Johnson Ulloa MD [address] [address] [email or web address] documented as of this encounter Visit Diagnoses Not on filedocumented in this encounter Additional Health Concerns Assessment Noted Time PHQ-2 Depression Total Score: 0 08/27/19 21 4:02 PM EDT documented as of this encounter Care Teams Cut Off Saw Grader Relationship Specialty Start Date End Date Danny Emanuel MD [address] [place] [address] PCP - General Internal Medicine 09/13/23 Shaggy Hopkins MD 1 [facility] [address] [place] [address] Historical LMR Provider 10/03/14 documented as of this encounter Additional Source Comments The information contained in this document represents components of the legal health record. It is not the complete legal health record.[facility]
--- OUTSIDE RECORDS SUMMARY | 2025-01-30 16:01 | XMS_ITS | Encounter Summary ---
Author Organization [facility] Address [address] [place] [address] Phone Care Team Providers Care Ticket Agent Name Role Phone Khadra Barba MD Primary Care Provider Shaggy Hopkins MD Unavailable [phone] Danny Emanuel MD Primary Care Provider [phone] Encounter Details Date Type Department Care Team (Late st Contact Info) Description 03/19/[address] [facility] [address] [address] Social History Tobacco Use Types Packs/Day Years [...] on file documented as of this encounter Last Filed Vital Signs Vital Sign Reading Time Taken Comments Blood Pressure - - Pulse - - Temperature - - Respiratory Rate - - Oxygen Saturation - - Inhaled Oxygen Concentration - - Weight 86.2 kg (190 lb) 03/20/2021 5:57 PM EDT Height 165.1 cm (5' 5 ) 03/20/2021 5:57 PM EDT Body Mass Index 31.62 03/20/2021 5:57 PM EDT documented in this encounter Plan of Treatment Upcoming Encounters Date Type Department Care Team (Late st Contact Info) Description 10/19/2024 Procedure Pass [facility] MR Imaging, [place] [address] [place] [address] 10/19/2024 Procedure Pass [facility] MR Imaging, [place] [address] [place] [address] 10/19/2024 Procedure Pass [facility] MR Imaging, [place] [address] [place] [address] 02/05/2025 5:20 PM EDT Appointment [facility] MR Imaging, [place] [address] [place] [address] Johnson Ulloa MD [address] [address] [email or web address] 02/07/2025 8:[address] [facility] and Women's [facility], Department of Neurology [address] [place] [address] Johnson Ulloa MD [address] [address] [email or web address] documented as of this encounter Visit Diagnoses Not on filedocumented in this encounter Additional Health Concerns Assessment Noted Time PHQ-2 Depression Total Score: 0 08/27/19 21 4:02 PM EDT documented as of this encounter Care Teams Ticket Agent Relationship Specialty Start Date End Date Khadra Barba MD [address] [place] [address] PCP - General 09/26/14 09/12/23 Danny Emanuel MD [address] [place] [address] PCP - General Internal Medicine 09/13/23 Shaggy Hopkins MD 1 [facility] [address] [place] [address] Historical LMR Provider 10/03/14 documented as of this encounter Additional Source Comments The information contained in this document represents components of the legal health record. It is not the complete legal health record.[facility]
--- OUTSIDE RECORDS SUMMARY | 2025-01-30 16:01 | XMS_ITS | Encounter Summary ---
Author Organization [facility] Address [address] [place] [address] Phone Care Team Providers Care Screen Door Maker Name Role Phone Khadra Barba MD Primary Care Provider Shaggy Hopkins MD Unavailable [phone] Danny Emanuel MD Primary Care Provider [phone] Encounter Details Date Type Department Care Team (Late st Contact Info) Description 2018 Procedure Pass [facility] MR Imaging, [address] [place] [address] Social History Tobacco Use Types Packs/Day Years [...] st Contact Info) Description 10/19/2024 Procedure Pass [facility] MR Imaging, [address] [place] [address] 10/19/2024 Procedure Pass [facility] MR Imaging, [address] [place] [address] 10/19/2024 Procedure Pass [facility] MR Imaging, [address] [place] [address] 02/05/2025 5:20 PM EDT Appointment [facility] MR Imaging, [address] [place] [address] Johnson Ulloa MD [address] [place] [address] [email or web address] 02/07/2025 8:30 AM EDT Telemedicine [facility], Department of Neurology [address] [place] [address] Johnson Ulloa MD [address] [place] [address] [email or web address] documented as of this encounter Visit Diagnoses Not on filedocumented in this encounter Care Teams Screen Door Maker Relationship Specialty Start Date End Date Khadra Barba MD [address] [place] [address] PCP - General 09/26/14 09/12/23 Danny Emanuel MD [address] [place] [address] PCP - General Internal Medicine 09/13/23 Shaggy Hopkins MD [address] [address] Historical LMR Provider 10/03/14 documented as of this encounter Additional Source Comments The information contained in this document represents components of the legal health record. It is not the complete legal health record.[facility]
--- OUTSIDE RECORDS SUMMARY | 2025-01-30 16:01 | XMS_ITS | Encounter Summary ---
Author Organization [facility] Address [address] [place] [address] Phone Care Team Providers Care Link Wire Fabric Machine Tender Name Role Phone Shaggy Hopkins MD Unavailable [phone] Danny Emanuel MD Primary Care Provider [phone] Encounter Details Date Type Department Care Team (Late st Contact Info) Description 10/13/2023 Procedure Pass [facility] [address] [place] [address] Social History Tobacco Use Types Packs/Day Years [...] with a working camera? Not on file Intimate Partner Violence Answer Date R ecorded Are you denied basic needs s uch as food, clothing, or medical care? No 10/13/2023 In the past 12 months have y ou been in a relationship with a person who hurts, threatens, or tries to control you? No 10/13/2023 Are you denied basic needs s uch as food, clothing, or medical care? No 10/13/2023 In the past 12 months have y ou been in a relationship with a person who hurts, threatens, or tries to control you? No 10/13/2023 Comments No Sex and Gender Information Value Date Recorded Sex Assigned at Female 10/08/2019 1:35 PM EDT Legal Sex Female 7:37 PM EST Gender Identity Not on file Sexual Orientation Not on file documented as of this encounter Plan of Treatment Upcoming Encounters Date Type Department Care Team (Late st Contact Info) Description 10/19/[address] [facility] MR Imaging, [address] [place] [address] 10/19/[address] [facility] MR Imaging, [address] [place] [address] 10/19/[address] [facility] MR Imaging, [address] [place] [address] 02/05/2025 5:[address] [facility] MR Imaging, [place] [address] [place] [address] Johnson Ulloa MD [address] [address] [email or web address] 02/07/2025 8:30 AM EDT Telemedicine [facility], Department of Neurology 60 [place] [address] Johnson Ulloa MD 60 [place] [address] [email or web address] documented as of this encounter Visit Diagnoses Not on filedocumented in this encounter Additional Health Concerns Assessment Noted Time PHQ-2 Depression Total Score: 0 08/27/19 21 4:02 PM EDT documented as of this encounter Care Teams Link Wire Fabric Machine Tender Relationship Specialty Start Date End Date Danny Emanuel MD [address] [place] [address] PCP - General Internal Medicine 09/13/23 Shaggy Hopkins MD 1 [facility] [address] [place] [address] Historical LMR Provider 10/03/14 documented as of this encounter Additional Source Comments The information contained in this document represents components of the legal health record. It is not the complete legal health record.[facility]
--- OUTSIDE RECORDS SUMMARY | 2025-01-30 16:01 | XMS_ITS | Encounter Summary ---
Author Organization [facility] Address [address] [place] [address] Phone Care Team Providers Care Regulatory Affairs Manager Name Role Phone Khadra Barba MD Primary Care Provider Shaggy Hopkins MD Unavailable [phone] Danny Emanuel MD Primary Care Provider [phone] Encounter Details Date Type Department Care Team (Late st Contact Info) Description 03/19/2021 Procedure Pass [facility] [address] [facility] [address] [place] [address] Social History Tobacco Use Types Packs/Day Years [...] st Contact Info) Description 10/19/2024 Procedure Pass [facility] MR Imaging, [address] [place] [address] 10/19/2024 Procedure Pass [facility] MR Imaging, [address] [place] [address] 10/19/2024 Procedure Pass [facility] MR Imaging, [address] [place] [address] 02/05/2025 5:20 PM EDT Appointment [facility] MR Imaging, [place] [address] [place] [address] Johnson Ulloa MD [address] [place] [address] [email or web address] 02/07/2025 8:30 AM EDT Telemedicine [facility], Department of Neurology [address] [place] [address] Johnson Ulloa MD [address] [place] [address] [email or web address] documented as of this encounter Visit Diagnoses Not on filedocumented in this encounter Additional Health Concerns Assessment Noted Time PHQ-2 Depression Total Score: 0 08/27/19 21 4:02 PM EDT documented as of this encounter Care Teams Regulatory Affairs Manager Relationship Specialty Start Date End Date Khadra Barba MD [address] [place] [address] PCP - General 09/26/14 09/12/23 Danny Emanuel MD [address] [place] [address] PCP - General Internal Medicine 09/13/23 Shaggy Hopkins MD [address] [address] Historical LMR Provider 10/03/14 documented as of this encounter Additional Source Comments The information contained in this document represents components of the legal health record. It is not the complete legal health record.[facility]
--- OUTSIDE RECORDS SUMMARY | 2025-01-30 16:01 | XMS_ITS | Encounter Summary ---
Author Organization [facility] Address [address] [place] [address] Phone Care Team Providers Care Boardmarker Name Role Phone Khadra Barba MD Primary Care Provider Shaggy Hopkins MD Unavailable [phone] Danny Emanuel MD Primary Care Provider [phone] Encounter Details Date Type Department Care Team (Late st Contact Info) Description 09/25/2020 Ophth Exam [facility] Emergency Department [address] [place] [address] Terri Keen MD [address] [place] [address] [email or web address] Social History Tobacco Use Types Packs/Day Years [...] Risk Indicated 09/25/2020 4:05 PM EDT Cameron Maurer, RN * [place] Suicide Severity Rating Scale (Screener/Recent Self-Report) Question Answer Date of Assessment Author 1. Wish to be (Past 1 Month) No 021 4:05 PM EDT Cameron Maurer RN 2. Non-Specific Active Suici artur Thoughts (Past 1 Month) No 09/25/2020 4:05 PM EDT Cameron Maurer RN 6. Suicidal Behavior (Lifetime) No 4:05 PM EDT Cameron Maurer RN documented as of this encounter Plan of Treatment Upcoming Encounters Date Type Department Care Team (Late st Contact Info) Description 10/19/2024 Procedure Pass [facility] MR Imaging, [address] [place] [address] 10/19/2024 Procedure Pass [facility] MR Imaging, [address] [place] [address] 10/19/2024 Procedure Pass [facility] MR Imaging, [address] [place] [address] 02/05/2025 5:20 PM EDT Appointment [facility] MR Imaging, [place] 60 [place] [address] Johnson Ulloa MD [address] [address] [email or web address] 02/07/2025 8:30 AM EDT Telemedicine [facility], Department of Neurology 60 [place] [address] Johnson Ulloa MD [address] [address] [email or web address] documented as of this encounter Visit Diagnoses Not on filedocumented in this encounter Additional Health Concerns Assessment Noted Time PHQ-2 Depression Total Score: 0 08/27/19 21 4:02 PM EDT documented as of this encounter Care Teams Boardmarker Relationship Specialty Start Date End Date Khadra Barba MD [address] [place] [address] PCP - General 09/26/14 09/12/23 Danny Emanuel MD [address] [place] [address] PCP - General Internal Medicine 09/13/23 Shaggy Hopkins MD [address] [address] Historical LMR Provider 10/03/14 documented as of this encounter Additional Source Comments The information contained in this document represents components of the legal health record. It is not the complete legal health record.[facility]
--- OUTSIDE RECORDS SUMMARY | 2025-01-30 16:01 | XMS_ITS | Encounter Summary ---
Author Organization [facility] Address [address] [place] [address] Phone Care Team Providers Care Senior Occupational Therapist Name Role Phone Khadra Barba MD Primary Care Provider Shaggy Hopkins MD Unavailable [phone] Danny Emanuel MD Primary Care Provider [phone] Encounter Details Date Type Department Care Team (Late st Contact Info) Description 09/25/2020 Procedure Pass [facility] - [facility], [facility] [address] [place] [address] Social History Tobacco Use Types Packs/Day Years [...] 4:05 PM EDT Cameron Maurer RN * [place] Suicide Severity Rating Scale (Screener/Recent Self-Report) Question [...] st Contact Info) Description 10/19/2024 Procedure Pass [facility] MR Imaging, [address] [place] [address] 10/19/2024 Procedure Pass [facility] MR Imaging, [address] [place] [address] 10/19/2024 Procedure Pass [facility] MR Imaging, [address] [place] [address] 02/05/2025 5:20 PM EDT Appointment [facility] MR Imaging, [address] [place] [address] Johnson Ulloa MD [address] [place] [address] [email or web address] 02/07/2025 8:30 AM EDT Telemedicine [facility] and [facility], Department of Neurology [address] [place] [address] Johnson Ulloa MD [address] [place] [address] [email or web address] documented as of this encounter Visit Diagnoses Not on filedocumented in this encounter Additional Health Concerns Assessment Noted Time PHQ-2 Depression Total Score: 0 08/27/19 21 4:02 PM EDT documented as of this encounter Care Teams Senior Occupational Therapist Relationship Specialty Start Date End Date Khadra Barba MD [address] [place] [address] PCP - General 09/26/14 09/12/23 Danny Emanuel MD [address] [place] [address] PCP - General Internal Medicine 09/13/23 Shaggy Hopkins MD 1 [place] [address] Historical LMR Provider 10/03/14 documented as of this encounter Additional Source Comments The information contained in this document represents components of the legal health record. It is not the complete legal health record.[facility]
--- OUTSIDE RECORDS SUMMARY | 2025-01-30 16:01 | XMS_ITS | Patient Health Record ---
Author Organization [facility] [employer] Address [address] [address] [place] [address] Care Team Providers Care Mink Farmer Name Role Phone Regi Barrow Unavailable [phone] Reason For Referral No Information Medications Medication SIG (Take, Route, Fr equency, Duration) Notes Start Date End Date Status Provigil 200MG 1 ORAL daily; Duration: -3 Simon-MJ 09/07/19 13 Active Lyrica 150MG 1 ORAL three times d aily; Duration: -3 Simon-MJ 09/06/2012 Active Problems Problem Type SNOMED Code ICD Code Onset Dates Problem Status W/U Status Risk Notes Problem Gynecological examination normal ([id number]) Routine gynecological examination (V72.31) Active confirmed Major Plan Of Treatment No Information Insurance Providers Payer Name Payer Address Payer Phone Subscriber Number Group Number Insured Name Patient Relationship to Insured Coverage Start Date Coverage End Date [employer] [address] [address] AMADO DavidJOSUE [address] [id number] BELA SAPP Self - patient is the insured
--- OUTSIDE RECORDS SUMMARY | 2025-01-30 16:01 | XMS_ITS | Encounter Summary ---
Author Organization [facility] Address [address] [place] [address] Phone Care Team Providers Care Furnace Stock Inspector Name Role Phone Khadra Barba MD Primary Care Provider Shaggy Hopkins MD Unavailable [phone] Danny Emanuel MD Primary Care Provider [phone] Encounter Details Date Type Department Care Team (Late st Contact Info) Description 08/26/2020 Procedure Pass [facility] Echocardiography [address] [place] [address] Social History Tobacco Use Types Packs/Day Years [...] st Contact Info) Description 10/19/2024 Procedure Pass [facility] MR Imaging, [address] [place] [address] 10/19/2024 Procedure Pass [facility] MR Imaging, [address] [place] [address] 10/19/2024 Procedure Pass [facility] MR Imaging, [address] [place] [address] 02/05/2025 5:20 PM EDT Appointment [facility] MR Imaging, [address] [place] [address] Johnson Ulloa MD [address] [place] [address] [email or web address] 02/07/2025 8:30 AM EDT Telemedicine [facility], Department of Neurology 60 [place] [address] Johnson Ulloa MD [address] [address] [email or web address] documented as of this encounter Visit Diagnoses Not on filedocumented in this encounter Additional Health Concerns Assessment Noted Time PHQ-2 Depression Total Score: 0 08/27/19 21 4:02 PM EDT documented as of this encounter Care Teams Furnace Stock Inspector Relationship Specialty Start Date End Date Khadra Barba MD [address] [place] [address] PCP - General 09/26/14 09/12/23 Danny Emanuel MD 24 [place] [address] PCP - General Internal Medicine 09/13/23 Shaggy Hopkins MD [address] [address] Historical LMR Provider 10/03/14 documented as of this encounter Additional Source Comments The information contained in this document represents components of the legal health record. It is not the complete legal health record.[facility]
--- OUTSIDE RECORDS SUMMARY | 2025-01-30 16:01 | XMS_ITS | Encounter Summary ---
Author Organization [facility] Address [address] [place] [address] Phone Care Team Providers Care Production Corrugator Name Role Phone Khadra Barba MD Primary Care Provider Shaggy Hopkins MD Unavailable [phone] Danny Emanuel MD Primary Care Provider Encounter Details Date Type Department Care Team (Late st Contact Info) Description 12/06/2016 Procedure Pass [facility] MR Imaging, [address] [place] [address] Social History Tobacco Use Types Packs/Day Years [...] Contact Info) Description 10/19/2024 Procedure Pass [facility] MR Imaging, [address] [place] [address] 10/19/2024 Procedure Pass [facility] MR Imaging, [address] [place] [address] 10/19/2024 Procedure Pass [facility] MR Imaging, [address] [place] [address] 02/05/2025 5:20 PM EDT Appointment [facility] MR Imaging, [address] [place] [address] Johnson Ulloa MD [address] [place] [address] [email or web address] 02/07/2025 8:30 AM EDT Telemedicine [facility], Department of Neurology [address] [place] [address] Johnson Ulloa MD [address] [address] [email or web address] documented as of this encounter Visit Diagnoses Not on filedocumented in this encounter Care Teams Production Corrugator Relationship Specialty Start Date End Date Khadra Barba MD [address] [place] [address] PCP - General 09/26/14 09/12/23 Danny Emanuel MD [address] [place] [address] PCP - General Internal Medicine 09/13/23 Shaggy Hopkins MD [address] [address] Historical LMR Provider 10/03/14 documented as of this encounter Additional Source Comments The information contained in this document represents components of the legal health record. It is not the complete legal health record.[facility]
--- OUTSIDE RECORDS SUMMARY | 2025-01-30 16:01 | XMS_ITS | Encounter Summary ---
Author Organization [facility] Address [address] [place] [address] Phone Care Team Providers Care Laborer Chicken Farm Name Role Phone Khadra Barba MD Primary Care Provider Shaggy Hopkins MD Unavailable [phone] Danny Emanuel MD Primary Care Provider [phone] Encounter Details Date Type Department Care Team (Late st Contact Info) Description 12/06/2016 Procedure Pass [facility] MR Imaging, [address] [place] [address] Social History Tobacco Use Types Packs/Day Years [...] st Contact Info) Description 10/19/2024 Procedure Pass [facility] MR Imaging, [address] [place] [address] 10/19/2024 Procedure Pass [facility] MR Imaging, [place] [address] [place] [address] 10/19/2024 Procedure Pass [facility] MR Imaging, [address] [place] [address] 02/05/2025 5:20 PM EDT Appointment [facility] MR Imaging, [address] [place] [address] Johnson Ulloa MD [address] [place] [address] [email or web address] 02/07/2025 8:30 AM EDT Telemedicine [facility], Department of Neurology [address] [place] [address] Johnson Ulloa MD [address] [address] [email or web address] documented as of this encounter Visit Diagnoses Not on filedocumented in this encounter Care Teams Laborer Chicken Farm Relationship Specialty Start Date End Date Khadra Barba MD [address] [place] [address] PCP - General 09/26/14 09/12/23 Danny Emanuel MD [address] [place] [address] PCP - General Internal Medicine 09/13/23 Shaggy Hopkins MD [address] [address] Historical LMR Provider 10/03/14 documented as of this encounter Additional Source Comments The information contained in this document represents components of the legal health record. It is not the complete legal health record.[facility]
--- OUTSIDE RECORDS SUMMARY | 2025-01-30 16:01 | XMS_ITS | Encounter Summary ---
Author Organization [facility] Address [address] [place] [address] Phone Care Team Providers Care Enrollment Management Vice President Name Role Phone Khadra Barba MD Primary Care Provider Shaggy Hopkins MD Unavailable [phone] Danny Emanuel MD Primary Care Provider [phone] Encounter Details Date Type Department Care Team (Late st Contact Info) Description 07/15/2020 Procedure Pass [facility] MR Imaging, [address] [place] [address] Social History Tobacco Use Types Packs/Day Years [...] - Inhaled Oxygen Concentration - - Weight 81.6 kg (180 lb) 07/16/2020 11:32 AM EST Height 165.1 cm (5' 5 ) 07/16/2020 11:32 AM EST Body Mass Index 29.95 07/16/2020 11:32 AM EST documented in this encounter Plan of Treatment Upcoming Encounters Date Type Department Care Team (Late st Contact Info) Description 10/19/2024 Procedure Pass [facility] MR Imaging, [address] [place] [address] 10/19/2024 Procedure Pass [facility] MR Imaging, [place] [address] [place] [address] 10/19/2024 Procedure Pass [facility] MR Imaging, [place] [address] [place] [address] 02/05/2025 5:20 PM EDT Appointment [facility] MR Imaging, [place] [address] [place] [address] Johnson Ulloa MD [address] [address] [email or web address] 02/07/2025 8:30 AM EDT Telemedicine [facility], Department of Neurology 60 [place] [address] Johnson Ulloa MD [address] [address] [email or web address] documented as of this encounter Visit Diagnoses Not on filedocumented in this encounter Care Teams Enrollment Management Vice President Relationship Specialty Start Date End Date Khadra Barba MD 24 [place] [address] PCP - General 09/26/14 09/12/23 Danny Emanuel MD [address] [place] [address] PCP - General Internal Medicine 09/13/23 Shaggy Hopkins MD 1 [facility] [address] [place] [address] Historical LMR Provider 10/03/14 documented as of this encounter Additional Source Comments The information contained in this document represents components of the legal health record. It is not the complete legal health record.[facility]
--- OUTSIDE RECORDS SUMMARY | 2025-01-30 16:01 | XMS_ITS | Encounter Summary ---
Author Organization [facility] Address [address] [place] [address] Phone Care Team Providers Care Nitroglycerin Neutralizer Name Role Phone Khadra Barba MD Primary Care Provider Shaggy Hopkins MD Unavailable [phone] Danny Emanuel MD Primary Care Provider Encounter Details Date Type Department Care Team (Late st Contact Info) Description 07/15/2020 Procedure Pass [facility] MR Imaging, [address] [place] [address] Social History Tobacco Use Types Packs/Day Years [...] [facility] MR Imaging, [address] [place] [address] 10/19/2024 Procedure Pass [facility] MR Imaging, [address] [place] [address] 10/19/2024 Procedure Pass [facility] MR Imaging, [address] [place] [address] 02/05/2025 5:20 PM EDT Appointment [facility] MR Imaging, [place] [address] [place] [address] Johnson Ulloa MD [address] [place] [address] [email or web address] 02/07/2025 8:30 AM EDT Telemedicine [facility] and [facility], Department of Neurology [address] [place] [address] Johnson Ulloa MD [address] [place] [address] [email or web address] documented as of this encounter Visit Diagnoses Not on filedocumented in this encounter Care Teams Nitroglycerin Neutralizer Relationship Specialty Start Date End Date Khadra Barba MD [address] [place] [address] PCP - General 09/26/14 09/12/23 Danny Emanuel MD [address] [place] [address] PCP - General Internal Medicine 09/13/23 Shaggy Hopkins MD [address] [address] Historical LMR Provider 10/03/14 documented as of this encounter Additional Source Comments The information contained in this document represents components of the legal health record. It is not the complete legal health record.[facility]
--- OUTSIDE RECORDS SUMMARY | 2025-01-30 16:01 | XMS_ITS | Encounter Summary ---
Author Organization [facility] Address [address] [place] [address] Phone Care Team Providers Care Manganese Wheeler Name Role Phone Khadra Barba MD Primary Care Provider Shaggy Hopkins MD Unavailable [phone] Danny Emanuel MD Primary Care Provider [phone] Encounter Details Date Type Department Care Team (Late st Contact Info) Description 07/27/2023 Procedure Pass [facility] MR Imaging, Flores [address] [place] [address] Social History Tobacco Use Types Packs/Day Years [...] st Contact Info) Description 10/19/2024 Procedure Pass [facility] MR Imaging, Flores [address] [place] [address] 10/19/2024 Procedure Pass [facility] MR Imaging, Sandra [address] [place] [address] 10/19/2024 Procedure Pass [facility] MR Imaging, Sandra [address] [place] [address] 02/05/2025 5:20 PM EDT Appointment [facility] MR Imaging, Sandra [address] [place] [address] Johnson Ulloa MD [address] [address] [email or web address] 02/07/2025 8:30 AM EDT Telemedicine [facility], Department of Neurology 60 [place] [address] Johnson Ulloa MD [address] [address] [email or web address] documented as of this encounter Visit Diagnoses Not on filedocumented in this encounter Additional Health Concerns Assessment Noted Time PHQ-2 Depression Total Score: 0 08/27/19 21 4:02 PM EDT documented as of this encounter Care Teams Manganese Wheeler Relationship Specialty Start Date End Date Khadra Barba MD [address] [place] [address] PCP - General 09/26/14 09/12/23 Danny Emanuel MD [address] [place] [address] PCP - General Internal Medicine 09/13/23 Shaggy Hopkins MD 1 [facility] [address] [place] [address] Historical LMR Provider 10/03/14 documented as of this encounter Additional Source Comments The information contained in this document represents components of the legal health record. It is not the complete legal health record.[facility]
--- OUTSIDE RECORDS SUMMARY | 2025-01-30 16:01 | XMS_ITS | Encounter Summary ---
Author Organization [facility] Address [address] [place] [address] Phone Care Team Providers Care Administrative Liaison Name Role Phone Khadra Barba MD Primary Care Provider Shaggy Hopkins MD Unavailable [phone] Danny Emanuel MD Primary Care Provider [phone] Encounter Details Date Type Department Care Team (Late st Contact Info) Description 12/27/2017 Procedure Pass [facility] MR Imaging, Flores [address] [place] [address] Social History Tobacco Use Types Packs/Day Years [...] st Contact Info) Description 10/19/2024 Procedure Pass [facility] MR Imaging, Flores [address] [place] [address] 10/19/2024 Procedure Pass [facility] MR Imaging, Flores 60 [place] [address] 10/19/2024 Procedure Pass [facility] MR Imaging, Flores [address] [place] [address] 02/05/2025 5:20 PM EDT Appointment [facility] MR Imaging, Flores [address] [place] [address] Johnson Ulloa MD [address] [place] [address] [email or web address] 02/07/2025 8:30 AM EDT Telemedicine [facility], Department of Neurology 60 [place] [address] Johnson Ulloa MD [address] [place] [address] [email or web address] documented as of this encounter Visit Diagnoses Not on filedocumented in this encounter Care Teams Administrative Liaison Relationship Specialty Start Date End Date Khadra Barba MD [address] [place] [address] PCP - General 09/26/14 09/12/23 Danny Emanuel MD [address] [place] [address] PCP - General Internal Medicine 09/13/23 Shaggy Hopkins MD [address] [address] Historical LMR Provider 10/03/14 documented as of this encounter Additional Source Comments The information contained in this document represents components of the legal health record. It is not the complete legal health record.[facility]
--- OUTSIDE RECORDS SUMMARY | 2025-01-30 16:01 | XMS_ITS | Encounter Summary ---
Author Organization [facility] Address [address] [place] [address] Phone Care Team Providers Care Visiting Housekeeper Name Role Phone Khadra Barba MD Primary Care Provider Shaggy Hopkins MD Unavailable [phone] Danny Emanuel MD Primary Care Provider [phone] Encounter Details Date Type Department Care Team (Late st Contact Info) Description 08/22/2020 Telephone [facility] 60 [place] [address] Janis Baez MD [address] [place] [address] [email or web address] Social History Tobacco Use Types Packs/Day Years [...] st Contact Info) Description 10/19/2024 Procedure Pass [facility] MR Imaging, Flores 60 [place] [address] 10/19/2024 Procedure Pass [facility] MR Imaging, Flores 60 [place] [address] 10/19/2024 Procedure Pass [facility] MR Imaging, Sandra [address] [place] [address] 02/05/2025 5:20 PM EDT Appointment [facility] Imaging, Sandra [address] [place] [address] Johnson Ulloa MD [address] [address] [email or web address] 02/07/2025 8:30 AM EDT Telemedicine [facility], Department of Neurology [address] [place] [address] Johnson Ulloa MD [address] [address] [email or web address] documented as of this encounter Visit Diagnoses Diagnosis Encounter for preoperative screening laboratory testing for COVID-19 virus- Primary documented in this encounter Additional Health Concerns Assessment Noted Time PHQ-2 Depression Total Score: 0 08/21/19 21 11:25 AM EDT documented as of this encounter Care Teams Visiting Housekeeper Relationship Specialty Start Date End Date Khadra Barba MD [address] [place] [address] PCP - General 09/26/14 09/12/23 Danny Emanuel MD [address] [place] [address] PCP - General Internal Medicine 09/13/23 Shaggy Hopkins MD [address] [address] Historical LMR Provider 10/03/14 documented as of this encounter Additional Source Comments The information contained in this document represents components of the legal health record. It is not the complete legal health record.[facility]
--- OUTSIDE RECORDS SUMMARY | 2025-01-30 16:01 | XMS_ITS | Encounter Summary ---
Author Organization [facility] Address [address] [place] [address] Phone Care Team Providers Care Pipeline Operator Name Role Phone Khadra Barba MD Primary Care Provider Shaggy Hopkins MD Unavailable [phone] Danny Emanuel MD Primary Care Provider [phone] Encounter Details Date Type Department Care Team (Late st Contact Info) Description 09/15/2020 Procedure Pass [facility] MR Imaging, Flores [address] [place] [address] Social History Tobacco Use Types Packs/Day Years [...] - - Weight 81.6 kg (180 lb) 09/16/2020 12:48 PM EDT Height 165.1 cm (5' 5 ) 09/16/2020 12:48 PM EDT Body Mass Index 29.95 09/16/2020 12:48 PM EDT documented in this encounter Plan of Treatment Upcoming Encounters Date Type Department Care Team (Late st Contact Info) Description 10/19/2024 Procedure Pass [facility] MR Imaging, Flores [address] [place] [address] 10/19/2024 Procedure Pass [facility] MR Imaging, Sandra [address] [place] [address] 10/19/2024 Procedure Pass [facility] MR Imaging, Sandra [address] [place] [address] 02/05/2025 5:20 PM EDT Appointment [facility] MR Imaging, Sandra [address] [place] [address] Johnson Ulloa MD [address] [address] [email or web address] 02/07/2025 8:[address] [facility], Department of Neurology 60 [place] [address] Johnson Ulloa MD [address] [address] [email or web address] documented as of this encounter Visit Diagnoses Not on filedocumented in this encounter Additional Health Concerns Assessment Noted Time PHQ-2 Depression Total Score: 0 08/27/19 21 4:02 PM EDT documented as of this encounter Care Teams Pipeline Operator Relationship Specialty Start Date End Date Khadra Barba MD [address] [place] [address] PCP - General 09/26/14 09/12/23 Danny Emanuel MD [address] [place] [address] PCP - General Internal Medicine 09/13/23 Shaggy Hopkins MD 1 [facility] [address] [place] [address] Historical LMR Provider 10/03/14 documented as of this encounter Additional Source Comments The information contained in this document represents components of the legal health record. It is not the complete legal health record.[facility]
--- OUTSIDE RECORDS SUMMARY | 2025-01-30 16:01 | XMS_ITS | Encounter Summary ---
Author Organization [facility] Address [address] [place] [address] Phone Care Team Providers Care Instructor Painting Name Role Phone Khadra Barba MD Primary Care Provider Shaggy Hpokins MD Unavailable [phone] Danny Emanuel MD Primary Care Provider [phone] Encounter Details Date Type Department Care Team (Late st Contact Info) Description 08/07/2018 Procedure Pass [facility] MR Imaging, Flores [address] [place] [address] Social History Tobacco Use Types Packs/Day Years [...] st Contact Info) Description 10/19/2024 Procedure Pass [facility] MR Imaging, Flores [address] [place] [address] 10/19/2024 Procedure Pass [facility] MR Imaging, Flores 60 [place] [address] 10/19/2024 Procedure Pass [facility] MR Imaging, Flores [address] [place] [address] 02/05/2025 5:20 PM EDT Appointment [facility] MR Imaging, Flores [address] [place] [address] Johnson Ulloa MD [address] [place] [address] [email or web address] 02/07/2025 8:30 AM EDT Telemedicine [facility], Department of Neurology 60 [place] [address] Johnson Ulloa MD [address] [place] [address] [email or web address] documented as of this encounter Visit Diagnoses Not on filedocumented in this encounter Care Teams Instructor Painting Relationship Specialty Start Date End Date Khadra Barba MD [address] [place] [address] PCP - General 09/26/14 09/12/23 Danny Emanuel MD [address] [place] [address] PCP - General Internal Medicine 09/13/23 Shaggy Hopkins MD [address] [address] Historical LMR Provider 10/03/14 documented as of this encounter Additional Source Comments The information contained in this document represents components of the legal health record. It is not the complete legal health record.[facility]
--- OUTSIDE RECORDS SUMMARY | 2025-01-30 16:01 | XMS_ITS | Encounter Summary ---
Author Organization [facility] Address [address] [place] [address] Phone Care Team Providers Care Master Steam Yacht Name Role Phone Khadra Barba MD Primary Care Provider Shaggy Hopkins MD Unavailable [phone] Danny Emanuel MD Primary Care Provider [phone] Encounter Details Date Type Department Care Team (Late st Contact Info) Description 10/17/2020 Procedure Pass [facility] EKG [address] [place] [address] Social History Tobacco Use Types Packs/Day Years [...] st Contact Info) Description 10/19/2024 Procedure Pass [facility] MR Imaging, Flores 60 [place] [address] 10/19/2024 Procedure Pass [facility] MR Imaging, Flores 60 [place] [address] 10/19/2024 Procedure Pass [facility] MR Imaging, Flores 60 [place] [address] 02/05/2025 5:20 PM EDT Appointment [facility] MR Imaging, Flores [address] [place] [address] Johnson Ulloa MD [address] [place] [address] [email or web address] 02/07/2025 8:30 AM EDT Telemedicine [facility], Department of Neurology [address] [place] [address] Johnson Ulloa MD [address] [place] [address] [email or web address] documented as of this encounter Visit Diagnoses Not on filedocumented in this encounter Additional Health Concerns Assessment Noted Time PHQ-2 Depression Total Score: 0 08/27/19 21 4:02 PM EDT documented as of this encounter Care Teams Master Steam Yacht Relationship Specialty Start Date End Date Khadra Barba MD [address] [place] [address] PCP - General 09/26/14 09/12/23 Danny Emanuel MD [address] [place] [address] PCP - General Internal Medicine 09/13/23 Shaggy Hopkins MD [address] [address] Historical LMR Provider 10/03/14 documented as of this encounter Additional Source Comments The information contained in this document represents components of the legal health record. It is not the complete legal health record.[facility]
--- OUTSIDE RECORDS SUMMARY | 2025-01-30 16:02 | XMS_ITS | Encounter Summary ---
Author Organization [facility] Address [address] [place] [address] Phone Care Team Providers Care Machines Technician Name Role Phone Khadra Barba MD Primary Care Provider Shaggy Hopkins MD Unavailable [phone] Danny Emanuel MD Primary Care Provider [phone] Encounter Details Date Type Department Care Team (Late st Contact Info) Description 08/25/2020 Procedure Pass [facility] MR Imaging, Flores [address] [place] [address] Social History Tobacco Use Types Packs/Day Years [...] - Inhaled Oxygen Concentration - - Weight 84.8 kg (187 lb) 08/26/2020 6:15 PM EDT Height 167.6 cm (5' 6 ) 08/26/2020 6:15 PM EDT Body Mass Index 30.18 08/26/2020 6:15 PM EDT documented in this encounter Plan of Treatment Upcoming Encounters Date Type Department Care Team (Late st Contact Info) Description 10/19/2024 Procedure Pass [facility] MR Imaging, Flores [address] [place] [address] 10/19/2024 Procedure Pass [facility] MR Imaging, Sandra [address] [place] [address] 10/19/2024 Procedure Pass [facility] MR Imaging, Sandra [address] [place] [address] 02/05/2025 5:20 PM EDT Appointment [facility] MR Imaging, Sandra [address] [place] [address] Johnson Ulloa MD [address] [address] [email or web address] 02/07/2025 8:30 AM EDT Telemedicine [facility], Department of Neurology 60 [place] [address] Johnson Ulloa MD [address] [address] [email or web address] documented as of this encounter Visit Diagnoses Not on filedocumented in this encounter Additional Health Concerns Assessment Noted Time PHQ-2 Depression Total Score: 0 08/27/19 21 4:02 PM EDT documented as of this encounter Care Teams Machines Technician Relationship Specialty Start Date End Date Khadra Barba MD [address] [place] [address] PCP - General 09/26/14 09/12/23 Danny Emanuel MD [address] [place] [address] PCP - General Internal Medicine 09/13/23 Shaggy Hopkins MD 1 [facility] [address] [place] [address] Historical LMR Provider 10/03/14 documented as of this encounter Additional Source Comments The information contained in this document represents components of the legal health record. It is not the complete legal health record.[facility]
--- OUTSIDE RECORDS SUMMARY | 2025-01-30 16:02 | XMS_ITS | Encounter Summary ---
Author Organization [facility] Address [address] [place] [address] Phone Care Team Providers Care Wrestling Coach Name Role Phone Khadra Barba MD Primary Care Provider Shaggy Hopkins MD Unavailable [phone] Danny Emanuel MD Primary Care Provider [phone] Encounter Details Date Type Department Care Team (Late st Contact Info) Description 04/01/2022 Procedure Pass [facility] MR Imaging, Flores [address] [place] [address] Social History Tobacco Use Types Packs/Day Years [...] st Contact Info) Description 10/19/2024 Procedure Pass [facility] MR Imaging, Flores [address] [place] [address] 10/19/2024 Procedure Pass [facility] MR Imaging, Flores [address] [place] [address] 10/19/2024 Procedure Pass [facility] MR Imaging, Flores [address] [place] [address] 02/05/2025 5:20 PM EDT Appointment [facility] MR Imaging, Flores [address] [place] [address] Johnson Ulloa MD [address] [place] [address] [email or web address] 02/07/2025 8:30 AM EDT Telemedicine [facility], Department of Neurology 60 [place] [address] Johnson Ulloa MD [address] [place] [address] [email or web address] documented as of this encounter Visit Diagnoses Not on filedocumented in this encounter Additional Health Concerns Assessment Noted Time PHQ-2 Depression Total Score: 0 08/27/19 21 4:02 PM EDT documented as of this encounter Care Teams Wrestling Coach Relationship Specialty Start Date End Date Khadra Barba MD [address] [place] [address] PCP - General 09/26/14 09/12/23 Danny Emanuel MD [address] [place] [address] PCP - General Internal Medicine 09/13/23 Shaggy Hopkins MD [address] [address] Historical LMR Provider 10/03/14 documented as of this encounter Additional Source Comments The information contained in this document represents components of the legal health record. It is not the complete legal health record.[facility]
--- OUTSIDE RECORDS SUMMARY | 2025-01-30 16:02 | XMS_ITS | Encounter Summary ---
Author Organization [facility] Address [address] [place] [address] Phone Care Team Providers Care Type Mapper Name Role Phone Khadra Barba MD Primary Care Provider Shaggy Hopkins MD Unavailable [phone] Danny Emanuel MD Primary Care Provider [phone] Encounter Details Date Type Department Care Team (Late st Contact Info) Description 04/01/2022 Procedure Pass [facility] MR Imaging, Flores [address] [place] [address] Social History Tobacco Use Types Packs/Day Years [...] [facility], Flores [address] [place] [address] 10/19/2024 Procedure Pass [facility] MR Imaging, Flores [address] [place] [address] 10/19/2024 Procedure Pass [facility] MR Imaging, Flores [address] [place] [address] 02/05/2025 5:20 PM EDT Appointment [facility] MR Imaging, Flores [address] [place] [address] Johnson Ulloa MD [address] [place] [address] [email or web address] 02/07/2025 8:30 AM EDT Telemedicine [facility] and [facility], Department of Neurology 60 [place] [address] Johnson Ulloa MD [address] [place] [address] [email or web address] documented as of this encounter Visit Diagnoses Not on filedocumented in this encounter Additional Health Concerns Assessment Noted Time PHQ-2 Depression Total Score: 0 08/27/19 21 4:02 PM EDT documented as of this encounter Care Teams Type Mapper Relationship Specialty Start Date End Date Khadra Barba MD [address] [place] [address] PCP - General 09/26/14 09/12/23 Danny Emanuel MD [address] [place] [address] PCP - General Internal Medicine 09/13/23 Shaggy Hopkins MD [address] [address] Historical LMR Provider 10/03/14 documented as of this encounter Additional Source Comments The information contained in this document represents components of the legal health record. It is not the complete legal health record.[facility]
--- OUTSIDE RECORDS SUMMARY | 2025-01-30 16:02 | XMS_ITS | Encounter Summary ---
Author Organization [facility] Address [address] [place] [address] Phone Care Team Providers Care Hygiene Coordinator Name Role Phone Khadra Barba MD Primary Care Provider Shaggy Hopkins MD Unavailable [phone] Danny Emanuel MD Primary Care Provider [phone] Encounter Details Date Type Department Care Team (Late st Contact Info) Description 04/13/2022 Telephone [facility] Otolaryngology [address] [place], [place] [address]2 [place] [address] Johnson Navarro MD [address] [place] [phone] [email or web address] Social History Tobacco Use Types Packs/Day Years [...] st Contact Info) Description 10/19/2024 Procedure Pass [facility] MR Imaging, Flores [address] [place] [address] 10/19/2024 Procedure Pass [facility] MR Imaging, Flores [address] [place] [address] 10/19/2024 Procedure Pass [facility] MR Imaging, Sandra [address] [place] [address] 02/05/2025 5:20 PM EDT Appointment [facility] MR Imaging, Flores [address] [place] [address] Johnson Ulloa MD [address] [address] [email or web address] 02/07/2025 8:30 AM EDT Telemedicine [facility] and [facility], Department of Neurology [address] [place] [address] Johnson Ulloa MD [address] [address] [email or web address] documented as of this encounter Visit Diagnoses Not on filedocumented in this encounter Additional Health Concerns Assessment Noted Time PHQ-2 Depression Total Score: 0 08/27/19 21 4:02 PM EDT documented as of this encounter Care Teams Hygiene Coordinator Relationship Specialty Start Date End Date Khadra Barba MD 24 [place] [address] PCP - General 09/26/14 09/12/23 Danny Emanuel MD 24 [place] [address] PCP - General Internal Medicine 09/13/23 Shaggy Hopkins MD [address] [address] Historical LMR Provider 10/03/14 documented as of this encounter Additional Source Comments The information contained in this document represents components of the legal health record. It is not the complete legal health record.[facility]
--- OUTSIDE RECORDS SUMMARY | 2025-01-30 16:02 | XMS_ITS | Clinical Summary ---
Author Organization [facility] Address [address] [place] [address] Phone Care Team Providers Care Dry Heat Cabinet Attendant Name Role Phone Shaggy Hopkins MD Unavailable Danny Ha MD Primary Care Provider [phone] Allergies Active Allergy Reactions Criticality Noted Date Comments Melatonin 03/25/2022 Oxycodone Rash Low 08/20/2020 Penicillin 03/25/2022 Penicillins Other (See Comments) 03/29/2005 tongue swelling Sulfa (Sulfonamide Antibiotics) Rash,Hives Low 08/20/2020 Medications acetaminophen (TYLENOL) 500 MG tablet Take 1,000 mg by mouth every 6 (six) hours as needed for pain (specific location in comments). Active ibuprofen (ADVIL,MOTRIN) 200 MG tablet Take 600 mg by mouth. Active diphenhydramin t-fobwffgil-ky wk-jqa-qxfwozh cone (MAGIC MOUTHWASH-BLM) 11-821-815-40 mg/30mL suspension Swish and spit 10 mL 3 (three) times a day. 900 mL 11 4 04/28/20 25 Active Additional Information Patient not taking.Reported on 10/19/2024 modafiniL (PROVIGIL) 100 MG tabletIndicati ons:Other fatigue Take 1 tablet (100 mg total) by mouth daily. 30 tablet 5 5 Active gabapentin (NEURONTIN) 100 MG capsuleIndicat ions:Neuralgia Take 1-2 capsules (100-200 mg total) by mouth 3 (three) times a day as needed (nerve pain). 180 capsule 5 5 Active baclofen (LIORESAL) 5 mg tabletIndicati ons:Spasticity Take 1-2 tablets (5-10 mg total) by mouth 3 (three) times a day as needed for spasm. 180 tablet 5 5 Active gabapentin (NEURONTIN) 100 MG capsuleIndicat ions:Neuralgia Take 1-2 capsules (100-200 mg total) by mouth 3 (three) times a day as needed. 180 capsule 5 3 01/31/20 25 Discontin ued(Reord er) baclofen (LIORESAL) 5 mg tabletIndicati ons:Spasticity Take 1-2 tablets (5-10 mg total) by mouth 3 (three) times a day as needed for spasm. 180 tablet 5 3 01/31/20 25 Discontin ued(Reord er) Active Problems Problem Noted Date Diagnosed Date Pain in eye 01/18/2014 Overview (07/12/2014): Eye pain Headache 12/12/2013 Overview (07/12/2014): Head pain; Major head pressure since october 2013 Abnormal vision 12/12/2013 Overview (07/12/2014): Abnormal vision; Blury in left eye Spasticity 12/12/2013 Overview (07/12/2014): Spasticity Asthenia 12/12/2013 Overview (07/12/2014): Weakness; legs Numbness 06/27/2012 Overview (07/12/2014): Numbness Pins and needles sensation 06/27/2012 Overview (07/12/2014): Tingling Multiple sclerosis 12/13/2011 Overview (07/12/2014): Multiple sclerosis; Secondary Progressive Encounters Date Type Department Care Team Description 01/30/2025 Telephone [facility], Department of Neurology [address] [place] [address] Johnson Ulloa MD New symptoms from Last 3 Months Immunizations No known immunizations Family History Medical History Relation Comments No Known Problems Brother No Known Problems Father Lung cancer Mother No Known Problems Sister Psoriasis Neg Hx Rheumatoid arthritis Neg Hx Relation Status Comments Brother Father Mother Sister Social History Tobacco Use Types Packs/Day Years Used Date Smoking Tobacco: Never Smokeless Tobacco: Never Tobacco Cessation:Counseling Given: Not Answered Alcohol Use Standard Drinks/Week Comments No 0 [...] on file Sexual Orientation Not on file Last Filed Vital Signs Vital Sign Reading Time Taken Comments Blood Pressure 131/68 10/19/2024 9:42 AM EDT Pulse 95 10/19/2024 9:42 AM EDT Temperature 36.5 C (97.7 F) 10/19/2024 9:42 AM EDT Respiratory Rate 18 12/13/2023 2:54 PM EDT Oxygen Saturation 99% 10/19/2024 9:42 AM EDT Inhaled Oxygen Concentration - - Weight 84.9 kg (187 lb 1.6 oz) 10/19/2024 9:41 A M EDT Height 165.1 cm (5' 5 ) 12/13/2023 2:54 PM EDT Body Mass Index 31.14 12/13/2023 2:54 PM EDT Plan of Treatment Upcoming Encounters Date Type Department Care Team (Late st Contact Info) Description 10/19/2024 Procedure Pass [facility] Imaging, [address] [place] [address] 10/19/2024 Procedure Pass [facility] Imaging, [address] [place] [address] 10/19/2024 Procedure Pass [facility] Imaging, [place] [address] [place] [address] 02/05/2025 5:20 PM EDT Appointment [facility], [address] [place] [address] Johnson Ulloa MD [address] [address] [email or web address] 02/07/2025 8:30 AM EDT Telemedicine [facility], Department of Neurology [address] [place] [address] Johnson Ulloa MD [address] [address] [email or web address] Health Maintenance Due Date Last Done Comments LIPID PANEL 1972 PAP SMEAR 1993 MAMMOGRAM 2012 COLOGUARD 2017 FIT TEST 2017 FOBT 2017 SIGMOIDOSCOPY 2017 VIRTUAL COLONOSCOPY 2017 DEPRESSION SCREENING 08/26/2021 08/26/2020 PNEUMOCOCCAL VACCINES (50+ years) (1 of 1 - PCV) 2022 ZOSTER VACCINES (1 of 2) 2022 INFLUENZA VACCINE (#1) 2024 COVID-19 VACCINE (3 - 2024-2 6 season) 2025 03/06/2021, 12/21/2020 SCREENING FOR DIABETES 04/20/2025 04/20/2022 COLONOSCOPY 10/12/2030 10/13/2023, 09/04/2020 COLORECTAL CANCER SCREENING 10/12/2030 Adult Td,Tdap Booster 09/18/2033 09/19/2023 HEPATITIS C SCREENING Completed 03/26/2016 HIV ONE-TIME SCREENING (18-6 5 YEARS) Completed 03/26/2016 SMOKING STATUS SCREENING (On ce After 26 Yrs) Completed 10/19/2024 HEPATITIS A VACCINES Aged Out No long er eligible based on patient's age to complete this topic HIB VACCINES Aged Out No longer eligi ble based on patient's age to complete this topic MENINGOCOCCAL VACCINES (ACWY) Aged Out No longer eligible based on patient's age to complete this topic MENINGOCOCCAL VACCINES (B) Aged Out N o longer eligible based on patient's age to complete this topic Medical Devices Not on file Procedures Procedure Name Priority Date/Time Associated Diagnosis Comments ENDOSCOPY, COLON 10/13/2023 11:4 5 AM EDT HEPATITIS C ANTIBODY, QUALITATIVE Routine 03/26/2016 11:42 AM EDT Multiple sclerosis from Last 3 Months or Most Recently Relevant to Health Maintenance Results * ENDOSCOPY, COLON (10/13/2023 11:45 AM EDT) 10/13/2023 11:4 5 AM EDT Narrative Transcriptions Tamara Tesfaye MD, PhD - 10/13/2023 11:45 AM EDT 850 Gastroenterology Patient Name: Sasha Suárez Procedure Date: 10/13/2023 11:45 AM Date of : 1970 Age: 52 Room: 03 Gender: Female Note Status: Finalized Attending MD: TAMARA TESFAYE MD [id number] Procedure: Colonoscopy Indications: High risk colon cancer surveillance: Personal history of multiple (3 or more) adenomas Patient Profile: 52F history of adenomas (3 in 2020) presenting for surveillance colonoscopy. Providers: TAMARA TESFAYE MD [id number], SARAH COOPER RN Referring MD: DANNY HA M.D. (Referring MD) Medicines: Monitored Anesthesia Care Complications: No immediate complications. Procedure: Pre-Anesthesia Assessment: - Prior to the procedure, a History and Physical was performed, and patient medications, allergies and sensitivities were reviewed. The patient's tolerance of previous anesthesia was reviewed. - The risks and benefits of the procedure and the sedation options and risks were discussed with the patient. All questions were answered and informed consent was obtained. - Patient identification and proposed procedure were verified prior to the procedure by the physician, the nurse and the anesthesiologist. The procedure was verified in the procedure room. - Pre-procedure physical examination revealed no contraindications to sedation. - ASA Grade Assessment: III - A patient with severe systemic disease. - After reviewing the risks and benefits, the patient was deemed in satisfactory condition to undergo the procedure. - Monitored anesthesia care under the supervision of an anesthesiologist was determined to be medically necessary for this procedure based on severe comorbidity (greater than ASA Grade II). After informed consent was obtained, the scope was passed under direct vision. Throughout the procedure, the patient's blood pressure, pulse, and oxygen saturations were monitored continuously. The Colonoscope was introduced through the anus and advanced to the terminal ileum. The colonoscopy was performed without difficulty. The patient tolerated the procedure well. The quality of the bowel preparation was good. The terminal ileum, ileocecal valve, appendiceal orifice, and rectum were photographed. Findings: A 3 mm polyp was found in the ascending colon. The polyp was sessile. The polyp was removed with a cold biopsy forceps. Resection and retrieval were complete. A few small-mouthed diverticula were found in the sigmoid colon. Anal papilla(e) were hypertrophied. Internal hemorrhoids were found during retroflexion. The hemorrhoids were small. The perianal and digital rectal examinations were normal. The terminal ileum appeared normal. Impression: - One 3 mm polyp in the ascending colon, removed with a cold biopsy forceps. Resected and retrieved. - Diverticulosis in the sigmoid colon. - Anal papilla(e) were hypertrophied. - Internal hemorrhoids. - The examined portion of the ileum was normal. Recommendation: - Discharge patient to home. - Await pathology results. - Repeat colonoscopy for surveillance based on pathology results. Tamara TESFAYE MD [id number] 10/13/2023 12:19:55 PM Number of Addenda: 0 Note Initiated On: 10/13/2023 11:45 AM us Danny Ha MD GI PROCEDURE ORDERABLES Final Result * Hepatitis C antibody, qualitative (03/26/2016 11:42 AM EDT) HCV Nonreactive Nonreactive [facility] Blood 03/26/2016 11:4 2 AM EDT 03/26/2016 12:23 PM EDT us Shaggy Hopkins MD LAB BLOOD ORDERABLES Rita zapata Result Performing Organization Address City/State/[facility] Co de Phone Number [facility] [address] [place] [address] from Last 3 Months or Most Recently Relevant to Health Maintenance [facility] EPO AENA O POS EPO AETNA O POS EPO AETNA O POS [facility]PO [facility] E[facility] AETNA O POS EPO AETNA O POS EPO AETNA O POS EPO Care Teams Dry Heat Cabinet Attendant Relationship Specialty Start Date End Date Danny Ha MD [address] [place] [address] PCP - General Internal Medicine 09/13/23 Shaggy Hopkins MD [address] [address] Historical LMR Provider 10/03/14 Additional Source Comments The information contained in this document represents components of the legal health record. It is not the complete legal health record.[facility]
--- OUTSIDE RECORDS SUMMARY | 2025-01-30 16:02 | XMS_ITS | Encounter Summary ---
Author Organization [facility] Address [address] [place] [address] Phone Care Team Providers Care Counseling Center Manager Name Role Phone Khadra Barba MD Primary Care Provider Shaggy Hopkins MD Unavailable [phone] Danny Emanuel MD Primary Care Provider [phone] Encounter Details Date Type Department Care Team (Late st Contact Info) Description 07/27/2023 Procedure Pass [facility] MR Imaging, [place] [address] [place] [address] Social History Tobacco Use Types Packs/Day Years [...] [facility] Imaging, [place] [address] [place] [address] 10/19/2024 Procedure Pass [facility] MR Imaging, [place] [address] [place] [address] 10/19/2024 Procedure Pass [facility] Imaging, [place] [address] [place] [address] 02/05/2025 5:20 PM EDT Appointment [facility] MR Imaging, [place] [address] [place] [address] Johnson Ulloa MD [address] [address] [email or web address] 02/07/2025 8:30 AM EDT Telemedicine [facility], Department of Neurology [address] [place] [address] Johnson Ulloa MD [address] [address] [email or web address] documented as of this encounter Visit Diagnoses Not on filedocumented in this encounter Additional Health Concerns Assessment Noted Time PHQ-2 Depression Total Score: 0 08/27/19 21 4:02 PM EDT documented as of this encounter Care Teams Counseling Center Manager Relationship Specialty Start Date End Date Khadra Barba MD [address] [place] [address] PCP - General 09/26/14 09/12/23 Danny Emanuel MD [address] [place] [address] PCP - General Internal Medicine 09/13/23 Shaggy Hopkins MD 1 [facility] [address] [place] [address] Historical LMR Provider 10/03/14 documented as of this encounter Additional Source Comments The information contained in this document represents components of the legal health record. It is not the complete legal health record.[facility]
--- OUTSIDE RECORDS SUMMARY | 2025-01-30 16:02 | XMS_ITS | Encounter Summary ---
Author Organization [facility] Address [address] [place] [address] Phone Care Team Providers Care Sprinkler Helper Name Role Phone Shaggy Hopkins MD Unavailable [phone] Danny Emanuel MD Primary Care Provider [phone] Reason for Visit * Reason Onset Date Comments New symptoms 01/30/2025 Encounter Details Date Type Department Care Team (Late st Contact Info) Description 01/30/2025 Telephone [facility], Department of Neurology [address] [place] [address] Johnson Ulloa MD [address] [address] [email or web address] New symptoms Social History Tobacco Use Types Packs/Day Years [...] as of this encounter Progress Notes * Miley Velasquez, SANTANA - 01/30/2025 2:23 PM EDT Called pt to f/u on report of possible new MS symptoms. Pt reports in late December she had sensation underneath left foot that was vibrating intermittently.Pt relayed this is completely new symptom. Pt reports that a few days later she noticed that her left leg started to experience this vibration sensation. Pt states that this sensation of vibrations on my inside has since increased to progress to whole body. Pt confirms that these symptoms worsen when looking down/putting chin to chest. Denies bowel/bladder issues Reports increased left side weakness to both leg and arm Notes increase in left foot drag. Denies falls Denies s/sx infection. Denies any new vision change although notes she has had periods of return of left eye blurriness over last few weeks, Pt says that symptoms worsen in heat and she had near fall in recent shower. Pt currently off DMT with last MRIs August 2023. Reviewed that new symptom of these internal vibration may be indication for MS relapse as pt not currently in DMT. Pt stated understanding and strongly would prefer not to go to ED for eval . Pt asks if is option to maybe move up April MRIs to jania and/or for urgent appt to review. Will forward to Dr. Ulloa and admin team to see if is option to move up MRIs and more urgent appt (either with Dr. Ulloa or with [facility] if available) Reviewed symptoms for which pt should go to ED. Will send to admin team and Dr. Ulloa high priority for their review for option of possible sooner MRI and f/u or additional reocmmendations. * Bri Sears - 01/30/2025 1:36 PM EDT Name of provider: Johnson Ulloa (paged) Name of caller: Sasha Suárez Call Back # [phone] Fax # N/A Reason for Call: The patient reports experiencing internal tremors that began in the left foot and have now progressed to involve the whole body. What symptoms are you experiencing? internal tremors How long have you been experiencing the symptom(s)? 2 weeks Have the symptoms worsened in the past 24 hours? yes Other symptoms/concerns? No Thank you, Bri Sears Recent Visits Date Type Provider Dept 10/19/24 Office Visit Johnson Ulloa MD [facility] 09/28/23 Telemedicine Johnson Ulloa MD [facility] Showing recent visits within past 540 days with a meds authorizing provider and meeting all other requirements Future Appointments Date Type Provider Dept 05/01/25 Appointment Johnson Ulloa MD [facility] Showing future appointments within next 365 days with a meds authorizing provider and meeting all other requirements documented in this encounter Plan of Treatment Upcoming Encounters Date Type Department Care Team (Late st Contact Info) Description 10/19/2024 Procedure Pass [facility] MR Imaging, [address] [place] [address] 10/19/2024 Procedure Pass [facility] MR Imaging, [address] [place] [address] 10/19/2024 Procedure Pass [facility] Imaging, [address] [place] [address] 02/05/2025 5:20 PM EDT Appointment [facility] Imaging, [address] [place] [address] Johnson Ulloa MD [address] [place] [address] [email or web address] 02/07/2025 8:30 AM EDT Telemedicine [facility], Department of Neurology [address] [place] [address] Johnson Ulloa MD [address] [facility] [place] [address] [email or web address] documented as of this encounter Visit Diagnoses Not on filedocumented in this encounter Additional Health Concerns Assessment Noted Time PHQ-2 Depression Total Score: 0 08/27/19 21 4:02 PM EDT documented as of this encounter Care Teams Sprinkler Helper Relationship Specialty Start Date End Date Danny Emanuel MD [address] [place] [address] PCP - General Internal Medicine 09/13/23 Shaggy Hopkins MD 1 [place] [address] Historical LMR Provider 10/03/14 documented as of this encounter Additional Source Comments The information contained in this document represents components of the legal health record. It is not the complete legal health record.[facility]
--- OUTSIDE RECORDS SUMMARY | 2025-01-30 16:02 | XMS_ITS | Encounter Summary ---
Author Organization [facility] Address [address] [place] [address] Phone Care Team Providers Care Stack Supervisor Name Role Phone Khadra Barba MD Primary Care Provider Shaggy Hopkins MD Unavailable Danny Emanuel MD Primary Care Provider [phone] Encounter Details Date Type Department Care Team (Late st Contact Info) Description 03/25/2022 Procedure Pass [facility] [address] [place] [address] Social History Tobacco Use Types Packs/Day Years [...] Date of Assessment Author No Risk Indicated 03/25/2022 11:33 AM JESSICAT Glenna Quintana RN * [place] Suicide Severity Rating Scale (Screener/Recent Self-Report) Question Answer Date of Assessment Author 1. Wish to be (Past 1 Month) No 022 11:33 AM Glenna Howell RN 2. Non-Specific Active Suici artur Thoughts (Past 1 Month) No 03/25/2022 11:33 AM EDT Yaritza Etienne RN 6. Suicidal Behavior (Lifetime) No 11:33 AM EDT Glenna Etienne RN documented as of this encounter Plan of Treatment Upcoming Encounters Date Type Department Care Team (Late st Contact Info) Description 10/19/2024 Procedure Pass [facility] MR Imaging, [address] [place] [address] 10/19/2024 Procedure Pass [facility] MR Imaging, [place] [address] [place] [address] 10/19/2024 Procedure Pass [facility] MR Imaging, [address] [place] [address] 02/05/2025 5:20 PM EDT Appointment [facility] MR Imaging, [place] [address] [place] [address] Johnson Ulloa MD [address] [place] [address] [email or web address] 02/07/2025 8:30 AM EDT Telemedicine [facility], Department of Neurology [address] [place] [address] Johnson Ulloa MD [address] [place] [address] [email or web address] documented as of this encounter Visit Diagnoses Not on filedocumented in this encounter Additional Health Concerns Assessment Noted Time PHQ-2 Depression Total Score: 0 08/27/19 21 4:02 PM EDT documented as of this encounter Care Teams Stack Supervisor Relationship Specialty Start Date End Date Khadra Barba MD [address] [place] [address] PCP - General 09/26/14 09/12/23 Danny Emanuel MD [address] [place] [address] PCP - General Internal Medicine 09/13/23 Shaggy Hopkins MD 1 [place] [address] Historical LMR Provider 10/03/14 documented as of this encounter Additional Source Comments The information contained in this document represents components of the legal health record. It is not the complete legal health record.[facility]
--- OUTSIDE RECORDS SUMMARY | 2025-01-30 16:02 | XMS_ITS | Encounter Summary ---
Author Organization [facility] Address [address] [place] [address] Phone Care Team Providers Care Teaching Assistant Name Role Phone Khadra Barba MD Primary Care Provider Shaggy Hopkins MD Unavailable [phone] Danny Emanuel MD Primary Care Provider [phone] Encounter Details Date Type Department Care Team (Late st Contact Info) Description 04/01/2022 Procedure Pass [facility] MR Imaging, [address] [place] [address] Social History Tobacco Use Types Packs/Day Years [...] st Contact Info) Description 10/19/2024 Procedure Pass [facility] MR Imaging, [place] [address] [place] [address] 10/19/2024 Procedure Pass [facility] MR Imaging, [place] [address] [place] [address] 10/19/2024 Procedure Pass [facility] MR Imaging, [address] [place] [address] 02/05/2025 5:20 PM EDT Appointment [facility] MR Imaging, [place] [address] [place] [address] Johnson Ulloa MD [address] [place] [address] [email or web address] 02/07/2025 8:30 AM EDT Telemedicine [facility], Department of Neurology [address] [place] [address] Johnson Ulloa MD [address] [place] [address] [email or web address] documented as of this encounter Visit Diagnoses Not on filedocumented in this encounter Additional Health Concerns Assessment Noted Time PHQ-2 Depression Total Score: 0 08/27/19 21 4:02 PM EDT documented as of this encounter Care Teams Teaching Assistant Relationship Specialty Start Date End Date Khadra Barba MD [address] [place] [address] PCP - General 09/26/14 09/12/23 Danny Emanuel MD [address] [place] [address] PCP - General Internal Medicine 09/13/23 Shaggy Hopkins MD [address] [address] Historical LMR Provider 10/03/14 documented as of this encounter Additional Source Comments The information contained in this document represents components of the legal health record. It is not the complete legal health record.[facility]
== END 2025-01-30 13:01 | disposition home or self-care (01) ==
LOC: HO.XRAY 13:00
PROVIDERS: PCP Internal Medicine; Visit Provider Internal Medicine Rheumatology
DX: M25.531 Pain in right wrist (principal); M25.532 Pain in left wrist; M13.0 Polyarthritis, unspecified
CPT/HCPCS: 73110

== ENCOUNTER → 2025-01-30 13:05 | Outpatient (BNV) | payer OTHER, SELFPAY | PROVIDERS: PCP Internal Medicine; Visit Provider Radiology Diagnostic Radiology | DX: M13.0 Polyarthritis, unspecified (principal) | CPT/HCPCS: 73110 ==

== ENCOUNTER 2025-04-04 13:09 | Outpatient (REF) | payer OTHER, SELFPAY ==
[2025-04-04 18:32] LABS: Alanine Aminotransferase 22 U/L (0-31); Aspartate Amino Transferase 24 U/L (5-31); Estimated Glomerular Filt Rate > 60
== END 2025-04-04 13:10 | disposition home or self-care (01) ==
LOC: HO.HKASLDS 13:09
PROVIDERS: PCP Family Medicine; Visit Provider Internal Medicine Rheumatology
DX: M02.331 Reiter's disease, right wrist (principal); M25.531 Pain in right wrist; M25.532 Pain in left wrist; M79.641 Pain in right hand; M79.642 Pain in left hand; Z79.1 Long term (current) use of non-steroidal anti-inflammatories (NSAID)
CPT/HCPCS: 36415; 82565; 84450; 84460

== ENCOUNTER 2025-04-04 13:09 | Outpatient (AMB) | payer OTHER, SELFPAY ==
[2025-04-04 13:14] VITALS: BP 120/72; PULSE 92; O2SAT 98; BMI 27.8
--- NOTE | 2025-04-04 13:14 | MHC.OFFVIS ---
Vital Signs 04/04/25 13:14 Height 5 ft 6 in Weight 171 lb 15.369 oz BMI 27.8 BP 120/72 Blood Pressure Location Rt brachial Position Sitting Pulse 92 Pulse Source Pulse Oximeter Pulse Oximetry (%) 98 Oxygen Delivery Method Room Air Intake Visit Reasons: 3 Months Intake Note: Patient presents today for a OA follow up. Accompanied by: Self / Same As Patient Allergies Penicillins Allergy (Severe, Verified 04/04/25 13:15) throat swelling naproxen Adverse Reaction (Mild, Verified 04/04/25 13:40) GERD Medication List - Last Reconciled 04/04/25 by Nakul Stratton MD meloxicam 15 mg PO DAILY omeprazole 20 mg PO DAILY HPI HPI 3 Months: Details: MS in the morning is whole body. MS 30min to an hour. Pain is better controlled with meloxicam. ON LICENSE OF [facility] Medical History Scoliosis H/O Raynaud's syndrome Family History Mother Lung cancer Raynauds disease Physical Exam Vital Signs: Last Vital Signs Pulse 92 04/04/25 13:14 BP 120/72 04/04/25 13:14 Pulse Ox 98 04/04/25 13:14 Oxygen Delivery Method Room Air 04/04/25 13:14 BMI result Body Mass Index 27.8 Const Other: General: Comfortable CVS: RRR Respiratory: clear to auscultation bilaterally. Good respiratory effort Lymph nodes: No cervical lymphadenopathy palpated Skin: No lesions seen MSK: No synovitis. 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 No tender joints. Normal range of motion of upper extremities and lower extremities. Assessment & Plan Assessment & Plan (1) Reactive arthritis: Comment: Resolved with meloxicam. 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 We discussed that this is an incidental finding at this time. I will monitor patient clinically. She reports that she has intermittent right 5th PIP and left IP joint pain and swelling. She will monitor her symptoms. Unremarkable exam this visit. Rheumatology history: In setting of influenza 07/2024 causing synovitis and pain in hands. She does not have synovitis on exam but continues to have bilateral wrists pain. Naproxen caused GERD. Meloxicam 12/2024-effective changed to PRN 03/2025 Code(s): M02.30 - Juan Antonio's disease, unspecified site Category: Medical Plan: X-ray bilateral hands ordered Labs for drug monitoring chronic NSAID ordered She will reduce meloxicam 15 mg to as needed joint pain and document her symptoms for next visit Return to clinic in 3 months (2) Bilateral wrist pain: Code(s): M25.531 - Pain in right wrist; M25.532 - Pain in left wrist Category: Medical Plan: See above (3) Bilateral hand pain: Code(s): M79.641 - Pain in right hand; M79.642 - Pain in left hand Category: Medical Plan: See above (4) terminal superintendent (current) use of non-steroidal anti-inflammatories (nsaid): Code(s): Z79.1 - longterm (current) use of non-steroidal anti-inflammatories (NSAID) Category: Medical Plan: See above Orders: Orders XR Hand Ajay 2V Today M79.641 - Pain in right hand, M79.642 - Pain in left hand Aspartate Amino Transferase Today M79.641 - Pain in right hand, M79.642 - Pain in left hand, Z79.1 - longterm (current) use of non-steroidal anti-inflammatories (NSAID) Creatinine Today M79.641 - Pain in right hand, M79.642 - Pain in left hand, Z79.1 - longterm (current) use of non-steroidal anti-inflammatories (NSAID) Alanine Aminotransferase Today M79.641 - Pain in right hand, M79.642 - Pain in left hand, Z79.1 - longterm (current) use of non-steroidal anti-inflammatories (NSAID) Medications: Refilled meloxicam Take with food 15 mg PO DAILY 30 tabs 2RF Coding Level of Care Code Est Pt Level 4 (10265) Complex EM visit Add On G2211 Diagnoses Reactive arthritis M02.30 Bilateral wrist pain M25.531; M25.532 Bilateral hand pain M79.641; M79.642 terminal superintendent (current) use of non-steroidal anti-inflammatories (nsaid) Z79.1
--- OUTSIDE RECORDS SUMMARY | 2025-04-04 16:29 | XMS_ITS | Encounter Summary ---
Author Organization [facility] Address [address] [place] [address] Phone Care Team Providers Care Automation Consultant Name Role Phone Khadra Barba MD Primary Care Provider Shaggy Hopkins MD Unavailable [phone] Danny Emanuel MD Primary Care Provider [phone] Encounter Details Date Type Department Care Team (Late st Contact Info) Description 03/19/2021 Procedure Pass [facility] Radiology 75 [facility] 2nd [place] [address] Social History Tobacco Use Types Packs/Day Years [...] Care Team (Late st Contact Info) Description 04/24/2025 1:30 PM EST Office Visit [facility], Department of Neurology 60 [place] [address] Johnson Ulloa MD [address] [address] [email or web address] documented as of this encounter Visit Diagnoses Not on filedocumented in this encounter Additional Health Concerns Assessment Noted Time PHQ-2 Depression Total Score: 0 08/27/19 21 4:02 PM EDT documented as of this encounter Care Teams Automation Consultant Relationship Specialty Start Date End Date Khadra Barba MD [address] [place] [address] PCP - General 09/26/14 09/12/23 Danny Emanuel MD [address] [place] [address] PCP - General Internal Medicine 09/13/23 Shaggy Hopkins MD [address] [place] [address] Historical LMR Provider 10/03/14 documented as of this encounter Additional Source Comments The information contained in this document represents components of the legal health record. It is not the complete legal health record.[facility]
--- OUTSIDE RECORDS SUMMARY | 2025-04-04 16:29 | XMS_ITS | Encounter Summary ---
Author Organization [facility] Address [address] [place] [address] Phone Care Team Providers Care Medical Equipment Repairer Name Role Phone Khadra Barba MD Primary Care Provider Shaggy Hopkins MD Unavailable Danny Emanuel MD Primary Care Provider [phone] Reason for Visit * Reason Onset Date Comments Medication Prior Authorization 04/09/2016 Encounter Details Date Type Department Care Team (Late st Contact Info) Description 04/09/2016 Telephone [facility] [address] [email or web address] Medication Prior Authorization Social [...] PA denial overturned after P2P. Martine MURRAY #[id number]. Valid: 03/28/2016--09/25/2016. 6 infusions approved. --BD documented in this encounter Plan of Treatment Upcoming Encounters Date Type Department Care Team (Late st Contact Info) Description 04/24/2025 1:30 PM EST Office Visit [facility], Department of Neurology 60 [place] [address] Johnson Ulloa MD [address] [address] [email or web address] documented as of this encounter Visit Diagnoses Not on filedocumented in this encounter Care Teams Medical Equipment Repairer Relationship Specialty Start Date End Date Khadra Barba MD 24 [place] [address] PCP - General 09/26/14 09/12/23 Danny Emanuel MD 24 [place] [address] PCP - General Internal Medicine 09/13/23 Shaggy Hopkins MD 1 [facility] [address] [place] [address] Historical LMR Provider 10/03/14 documented as of this encounter Additional Source Comments The information contained in this document represents components of the legal health record. It is not the complete legal health record.[facility]
--- OUTSIDE RECORDS SUMMARY | 2025-04-04 16:29 | XMS_ITS | Encounter Summary ---
Author Organization [facility] Address [address] [place] [address] Phone Care Team Providers Care Bingo Clerk Name Role Phone Khadra Barba MD Primary Care Provider Shaggy Hopkins MD Unavailable [phone] Danny Emanuel MD Primary Care Provider [phone] Encounter Details Date Type Department Care Team (Late st Contact Info) Description 08/07/2018 Procedure Pass [facility] MR Imaging, [place] [address] [place] [address] Social History Tobacco Use Types Packs/Day Years [...] Description 04/24/2025 1:30 PM EST Office Visit [facility], Department of Neurology 60 [place] [address] Johnson Ulloa MD [address] [address] [email or web address] documented as of this encounter Visit Diagnoses Not on filedocumented in this encounter Care Teams Bingo Clerk Relationship Specialty Start Date End Date Khadra Barba MD [address] [place] [address] PCP - General 09/26/14 09/12/23 Danny Emanuel MD [address] [place] [address] PCP - General Internal Medicine 09/13/23 Shaggy Hopkins MD 1 [place] [address] Historical LMR Provider 10/03/14 documented as of this encounter Additional Source Comments The information contained in this document represents components of the legal health record. It is not the complete legal health record.[facility]
--- OUTSIDE RECORDS SUMMARY | 2025-04-04 16:29 | XMS_ITS | Encounter Summary ---
Author Organization [facility] Address [address] [place] [address] Phone Care Team Providers Care Machine Welt Butter Name Role Phone Khadra Barba MD Primary Care Provider Shaggy Hopkins MD Unavailable [phone] Danny Emanuel MD Primary Care Provider [phone] Encounter Details Date Type Department Care Team (Late st Contact Info) Description 03/19/2021 Procedure Pass [facility] Radiology 75 [facility] 2nd [place] [address] Social History Tobacco Use Types Packs/Day Years [...] Description 04/24/2025 1:30 PM EST Office Visit [facility], Department of Neurology 60 [place] [address] Johnson Ulloa MD [address] [address] [email or web address] documented as of this encounter Visit Diagnoses Not on filedocumented in this encounter Additional Health Concerns Assessment Noted Time PHQ-2 Depression Total Score: 0 08/27/19 21 4:02 PM EDT documented as of this encounter Care Teams Machine Welt Butter Relationship Specialty Start Date End Date Khadra Barba MD [address] [place] [address] PCP - General 09/26/14 09/12/23 Danny Emanuel MD [address] [place] [address] PCP - General Internal Medicine 09/13/23 Shaggy Hopkins MD [address] [place] [address] Historical LMR Provider 10/03/14 documented as of this encounter Additional Source Comments The information contained in this document represents components of the legal health record. It is not the complete legal health record.[facility]
--- OUTSIDE RECORDS SUMMARY | 2025-04-04 16:29 | XMS_ITS | Encounter Summary ---
Author Organization [facility] Address [address] [place] [address] Phone Care Team Providers Care Painting Worker Name Role Phone Khadra Barba MD Primary Care Provider Shaggy Hopkins MD Unavailable [phone] Danny Emanuel MD Primary Care Provider [phone] Encounter Details Date Type Department Care Team (Late st Contact Info) Description 12/06/2016 Procedure Pass [facility] MR Imaging, [place] [address] [place] [address] Social History Tobacco Use Types Packs/Day Years [...] Description 04/24/2025 1:30 PM EST Office Visit [facility], Department of Neurology 60 [place] [address] Johnson Ulloa MD [address] [place] [address] [email or web address] documented as of this encounter Visit Diagnoses Not on filedocumented in this encounter Care Teams Painting Worker Relationship Specialty Start Date End Date Khadra Barba MD [address] [place] [address] PCP - General 09/26/14 09/12/23 Danny Emanuel MD [address] [place] [address] PCP - General Internal Medicine 09/13/23 Shaggy Hopkins MD [address] [place] [address] Historical LMR Provider 10/03/14 documented as of this encounter Additional Source Comments The information contained in this document represents components of the legal health record. It is not the complete legal health record.[facility]
--- OUTSIDE RECORDS SUMMARY | 2025-04-04 16:29 | XMS_ITS | Encounter Summary ---
Author Organization [facility] Address [address] [place] [address] Phone Care Team Providers Care Card Assembler Name Role Phone Khadra Barba MD Primary Care Provider Shaggy Hopkins MD Unavailable [phone] Danny Emanuel MD Primary Care Provider [phone] Encounter Details Date Type Department Care Team (Late st Contact Info) Description 03/19/2021 Procedure Pass [facility] 75 [facility] 2nd [place] [address] Social History Tobacco Use Types Packs/Day Years [...] Description 04/24/2025 1:30 PM EST [facility], Department of Neurology 60 [place] [address] Johnson Ulloa MD 60 [facility] [address] [place] [address] [email or web address] documented as of this encounter Visit Diagnoses Not on filedocumented in this encounter Additional Health Concerns Assessment Noted Time PHQ-2 Depression Total Score: 0 08/27/19 21 4:02 PM EDT documented as of this encounter Care Teams Card Assembler Relationship Specialty Start Date End Date Khadra Barba MD [address] [place] [address] PCP - General 09/26/14 09/12/23 Danny Emanuel MD [address] [place] [address] PCP - General Internal Medicine 09/13/23 Shaggy Hopkins MD [address] [address] Historical LMR Provider 10/03/14 documented as of this encounter Additional Source Comments The information contained in this document represents components of the legal health record. It is not the complete legal health record.[facility]
--- OUTSIDE RECORDS SUMMARY | 2025-04-04 16:29 | XMS_ITS | Encounter Summary ---
Author Organization [facility] Address [address] [place] [address] Phone Care Team Providers Care Fabrication Manager Name Role Phone Khadra Barba MD Primary Care Provider Shaggy Hopkins MD Unavailable [phone] Danny Emanuel MD Primary Care Provider [phone] Encounter Details Date Type Department Care Team (Late st Contact Info) Description 12/06/2016 Procedure Pass [facility] MR Imaging, [place] [address] [place] [address] Social History Tobacco Use Types Packs/Day Years [...] Description 04/24/2025 1:30 PM EST Office Visit [facility], Department of Neurology 60 [place] [address] Johnson Ulloa MD [address] [place] [address] [email or web address] documented as of this encounter Visit Diagnoses Not on filedocumented in this encounter Care Teams Fabrication Manager Relationship Specialty Start Date End Date Khadra Barba MD [address] [place] [address] PCP - General 09/26/14 09/12/23 Danny Emanuel MD [address] [place] [address] PCP - General Internal Medicine 09/13/23 Shaggy Hopkins MD [address] [place] [address] Historical LMR Provider 10/03/14 documented as of this encounter Additional Source Comments The information contained in this document represents components of the legal health record. It is not the complete legal health record.[facility]
--- OUTSIDE RECORDS SUMMARY | 2025-04-04 16:29 | XMS_ITS | Encounter Summary ---
Author Organization [facility] Address [address] [place] [address] Phone Care Team Providers Care Roto Gravure Press Operator Name Role Phone Khadra Barba MD Primary Care Provider Shaggy Hopkins MD Unavailable [phone] Danny Emanuel MD Primary Care Provider [phone] Encounter Details Date Type Department Care Team (Late st Contact Info) Description 08/26/2020 Procedure Pass [facility] Echocardiography 70 [place] [address] Social History Tobacco Use Types Packs/Day Years [...] Description 04/24/2025 1:30 PM EST Office Visit [facility], Department of Neurology 60 [place] [address] Johnson Ulloa MD [address] [address] [email or web address] documented as of this encounter Visit Diagnoses Not on filedocumented in this encounter Additional Health Concerns Assessment Noted Time PHQ-2 Depression Total Score: 0 08/27/19 21 4:02 PM EDT documented as of this encounter Care Teams Roto Gravure Press Operator Relationship Specialty Start Date End Date Khadra Barba MD [address] [place] [address] PCP - General 09/26/14 09/12/23 Danny Emanuel MD 24 [place] [address] PCP - General Internal Medicine 09/13/23 Shaggy Hopkins MD 1 [place] [address] Historical LMR Provider 10/03/14 documented as of this encounter Additional Source Comments The information contained in this document represents components of the legal health record. It is not the complete legal health record.[facility]
--- OUTSIDE RECORDS SUMMARY | 2025-04-04 16:29 | XMS_ITS | Encounter Summary ---
Author Organization [facility] Address [address] [place] [address] Phone Care Team Providers Care Retouching Operator Name Role Phone Shaggy Hopkins MD Unavailable [phone] Danny Emanuel MD Primary Care Provider [phone] Encounter Details Date Type Department Care Team (Late st Contact Info) Description 10/19/2024 Procedure Pass [facility] MR Imaging, [place] [address] [place] [address] Social History Tobacco Use Types Packs/Day Years [...] Description 04/24/2025 1:30 PM EST Office Visit [facility], Department of Neurology 60 [place] [address] Johnson Ulloa MD 60 [facility] [address] [place] [address] [email or web address] documented as of this encounter Visit Diagnoses Not on filedocumented in this encounter Additional Health Concerns Assessment Noted Time PHQ-2 Depression Total Score: 0 08/27/19 21 4:02 PM EDT documented as of this encounter Care Teams Retouching Operator Relationship Specialty Start Date End Date Danny Emanuel MD [address] [place] [address] PCP - General Internal Medicine 09/13/23 Shaggy Hopkins MD [address] [address] Historical LMR Provider 10/03/14 documented as of this encounter Additional Source Comments The information contained in this document represents components of the legal health record. It is not the complete legal health record.[facility]
--- OUTSIDE RECORDS SUMMARY | 2025-04-04 16:29 | XMS_ITS | Encounter Summary ---
Author Organization [facility] Address [address] [place] [address] Phone Care Team Providers Care Ceramic Tiler Name Role Phone Khadra Barba MD Primary Care Provider Shaggy Hopkins MD Unavailable [phone] Danny Emanuel MD Primary Care Provider [phone] Encounter Details Date Type Department Care Team (Late st Contact Info) Description 09/25/2020 Procedure Pass [facility] - [facility], [facility] [address] [place] [address] Social History Tobacco Use Types Packs/Day Years [...] 4:05 PM EDT Cameron Maurer RN * [place] Suicide Severity Rating Scale (Screener/Recent Self-Report) Question Answer Date of Assessment Author 1. Wish to be (Past 1 Month) No 021 4:05 PM EDT Cameron Maurer RN 2. Non-Specific Active Suici artur Thoughts (Past 1 Month) No 09/25/2020 4:05 PM EDT Cameron Maurer RN 6. Suicidal Behavior (Lifetime) No 1 4:05 PM EDT Cameron Maurer RN documented as of this encounter Plan of Treatment Upcoming Encounters Date Type Department Care Team (Late st Contact Info) Description 04/24/2025 1:30 PM EST Office Visit [facility], Department of Neurology 60 [place] [address] Johnson Ulloa MD [address] [address] [email or web address] documented as of this encounter Visit Diagnoses Not on filedocumented in this encounter Additional Health Concerns Assessment Noted Time PHQ-2 Depression Total Score: 0 08/27/19 21 4:02 PM EDT documented as of this encounter Care Teams Ceramic Tiler Relationship Specialty Start Date End Date Khadra Barba MD 24 [place] [address] PCP - General 09/26/14 09/12/23 Danny Emanuel MD 24 [place] [address] PCP - General Internal Medicine 09/13/23 Shaggy Hopkins MD [address] [address] Historical LMR Provider 10/03/14 documented as of this encounter Additional Source Comments The information contained in this document represents components of the legal health record. It is not the complete legal health record.[facility]
--- OUTSIDE RECORDS SUMMARY | 2025-04-04 16:29 | XMS_ITS | Encounter Summary ---
Author Organization [facility] Address [address] [place] [address] Phone Care Team Providers Care Paint Prepper Name Role Phone Shaggy Hopkins MD Unavailable [phone] Danny Emanuel MD Primary Care Provider [phone] Encounter Details Date Type Department Care Team (Late st Contact Info) Description 10/19/2024 Procedure Pass [facility] MR Imaging, [place] [address] [place] [address] Social History Tobacco Use Types Packs/Day Years [...] 04/24/2025 1:30 PM EST Office Visit [facility], Department of Neurology 60 [place] [address] Johnson Ulloa MD 60 [facility] [address] [place] [address] [email or web address] documented as of this encounter Visit Diagnoses Not on filedocumented in this encounter Additional Health Concerns Assessment Noted Time PHQ-2 Depression Total Score: 0 08/27/19 21 4:02 PM EDT documented as of this encounter Care Teams Paint Prepper Relationship Specialty Start Date End Date Danny Emanuel MD [address] [place] [address] PCP - General Internal Medicine 09/13/23 Shaggy Hopkins MD [address] [address] Historical LMR Provider 10/03/14 documented as of this encounter Additional Source Comments The information contained in this document represents components of the legal health record. It is not the complete legal health record.[facility]
--- OUTSIDE RECORDS SUMMARY | 2025-04-04 16:29 | XMS_ITS | Encounter Summary ---
Author Organization [facility] Address [address] [place] [address] Phone Care Team Providers Care Grommet Worker Name Role Phone Khadra Barba MD Primary Care Provider Shaggy Hopkins MD Unavailable [phone] Danny Emanuel MD Primary Care Provider [phone] Encounter Details Date Type Department Care Team (Late st Contact Info) Description 08/07/2018 Procedure Pass [facility] MR Imaging, [place] [address] [place] [address] Social History Tobacco Use Types Packs/Day Years [...] [facility], Department of Neurology 60 [place] [address] Johnson Ulloa MD [address] [address] [email or web address] documented as of this encounter Visit Diagnoses Not on filedocumented in this encounter Care Teams Grommet Worker Relationship Specialty Start Date End Date Khadra Barba MD [address] [place] [address] PCP - General 09/26/14 09/12/23 Danny Emanuel MD [address] [place] [address] PCP - General Internal Medicine 09/13/23 Shaggy Hopkins MD 1 [place] [address] Historical LMR Provider 10/03/14 documented as of this encounter Additional Source Comments The information contained in this document represents components of the legal health record. It is not the complete legal health record.[facility]
--- OUTSIDE RECORDS SUMMARY | 2025-04-04 16:29 | XMS_ITS | Encounter Summary ---
Author Organization [facility] Address [address] [place] [address] Phone Care Team Providers Care Vice President Biostatistics Name Role Phone Khadra Barba MD Primary Care Provider Shaggy Hopkins MD Unavailable [phone] Danny Emanuel MD Primary Care Provider [phone] Encounter Details Date Type Department Care Team (Late st Contact Info) Description 12/06/2016 Procedure Pass [facility] MR Imaging, [place] [address] [place] [address] Social History Tobacco Use Types Packs/Day Years [...] Description 04/24/2025 1:30 PM EST Office Visit [facility], Department of Neurology [address] [place] [address] Johnson Ulloa MD [address] [place] [address] [email or web address] documented as of this encounter Visit Diagnoses Not on filedocumented in this encounter Care Teams Vice President Biostatistics Relationship Specialty Start Date End Date Khadra Barba MD [address] [place] [address] PCP - General 09/26/14 09/12/23 Danny Emanuel MD [address] [place] [address] PCP - General Internal Medicine 09/13/23 Shaggy Hopkins MD [address] [place] [address] Historical LMR Provider 10/03/14 documented as of this encounter Additional Source Comments The information contained in this document represents components of the legal health record. It is not the complete legal health record.[facility]
--- OUTSIDE RECORDS SUMMARY | 2025-04-04 16:29 | XMS_ITS | Encounter Summary ---
Author Organization [facility] Address [address] [place] [address] Phone Care Team Providers Care Sports Management Intern Name Role Phone Khadra Barba MD Primary Care Provider Shaggy [place] MD Unavailable [phone] Danny Emanuel MD Primary Care Provider [phone] Encounter Details Date Type Department Care Team (Late st Contact Info) Description 09/25/2020 Procedure Pass [facility], [facility] [address] [place] [address] Social History Tobacco Use Types Packs/Day Years [...] 4:05 PM EDT Cameron Maurer RN * [facility] Suicide Severity Rating Scale (Screener/Recent Self-Report) Question [...] Description 04/24/2025 1:30 PM EST Office Visit [facility], Department of Neurology [address] [place] [address] Johnson Ulloa MD [address] [address] [email or web address] documented as of this encounter Visit Diagnoses Not on filedocumented in this encounter Additional Health Concerns Assessment Noted Time PHQ-2 Depression Total Score: 0 08/27/19 21 4:02 PM EDT documented as of this encounter Care Teams Sports Management Intern Relationship Specialty Start Date End Date Khadra Barba MD [address] [place] [address] PCP - General 09/26/14 09/12/23 Danny Emanuel MD 24 [place] [address] PCP - General Internal Medicine 09/13/23 Shaggy Hopkins MD [address] [address] Historical LMR Provider 10/03/14 documented as of this encounter Additional Source Comments The information contained in this document represents components of the legal health record. It is not the complete legal health record.[facility]
--- OUTSIDE RECORDS SUMMARY | 2025-04-04 16:29 | XMS_ITS | Encounter Summary ---
Author Organization [facility] Address [address] [place] [address] Phone Care Team Providers Care Ginning Operator Name Role Phone Khadra Barba MD Primary Care Provider Shaggy [place] MD Unavailable [phone] Danny Emanuel MD Primary Care Provider [phone] Encounter Details Date Type Department Care Team (Late st Contact Info) Description 09/25/2020 Ophth Exam [facility] Emergency Department [address] [place] [address] Terri Keen MD [address] [place] [address] [email or web address] Social History Tobacco Use Types Packs/Day Years [...] 4:05 PM EDT Cameron Maurer, RN * [place] Suicide Severity Rating Scale (Screener/Recent Self-Report) Question [...] Description 04/24/2025 1:30 PM EST Office Visit [facility], Department of Neurology [address] [place] [address] Johnson Ulloa MD [address] [address] [email or web address] documented as of this encounter Visit Diagnoses Not on filedocumented in this encounter Additional Health Concerns Assessment Noted Time PHQ-2 Depression Total Score: 0 08/27/19 21 4:02 PM EDT documented as of this encounter Care Teams Ginning Operator Relationship Specialty Start Date End Date Khadra Barba MD [address] [place] [address] PCP - General 09/26/14 09/12/23 Danny Emanuel MD [address] [place] [address] PCP - General Internal Medicine 09/13/23 Shaggy Hopkins MD [address] [facility] [address] [place] [address] Historical LMR Provider 10/03/14 documented as of this encounter Additional Source Comments The information contained in this document represents components of the legal health record. It is not the complete legal health record.[facility]
--- OUTSIDE RECORDS SUMMARY | 2025-04-04 16:29 | XMS_ITS | Encounter Summary ---
Author Organization [facility] Address [address] [place] [address] Phone Care Team Providers Care Benzol Operator Name Role Phone Shaggy Hopkins MD Unavailable [phone] Danny Emanuel MD Primary Care Provider [phone] Encounter Details Date Type Department Care Team (Late st Contact Info) Description 10/19/2024 Procedure Pass [facility] MR Imaging, [place] [address] [place] [address] Social History Tobacco Use Types Packs/Day Years [...] Description 04/24/2025 1:30 PM EST Office Visit [facility], Department of Neurology [address] [place] [address] Johnson Ulloa MD 60 [facility] [address] [place] [address] [email or web address] documented as of this encounter Visit Diagnoses Not on filedocumented in this encounter Additional Health Concerns Assessment Noted Time PHQ-2 Depression Total Score: 0 08/27/19 21 4:02 PM EDT documented as of this encounter Care Teams Benzol Operator Relationship Specialty Start Date End Date Danny Emanuel MD [address] [place] [address] PCP - General Internal Medicine 09/13/23 Shaggy Hopkins MD [address] [address] Historical LMR Provider 10/03/14 documented as of this encounter Additional Source Comments The information contained in this document represents components of the legal health record. It is not the complete legal health record.[facility]
--- OUTSIDE RECORDS SUMMARY | 2025-04-04 16:30 | XMS_ITS | Encounter Summary ---
Author Organization [facility] Address [address] [place] [address] Phone Care Team Providers Care Dispenser Operator Name Role Phone Khadra Barba MD Primary Care Provider Shaggy [place] MD Unavailable [phone] Danny Emanuel MD Primary Care Provider [phone] Encounter Details Date Type Department Care Team (Late st Contact Info) Description 2018 Procedure Pass [facility] MR Imaging, [place] [address] [place] [address] Social History Tobacco Use Types Packs/Day Years [...] Description 04/24/2025 1:30 PM EST Office Visit [facility], Department of Neurology [address] [place] [address] Johnson Ulloa MD [address] [address] [email or web address] documented as of this encounter Visit Diagnoses Not on filedocumented in this encounter Care Teams Dispenser Operator Relationship Specialty Start Date End Date Khadra Barba MD [address] [place] [address] PCP - General 09/26/14 09/12/23 Danny Emanuel MD [address] [place] [address] PCP - General Internal Medicine 09/13/23 Shaggy Hopkins MD 1 [place] [address] Historical LMR Provider 10/03/14 documented as of this encounter Additional Source Comments The information contained in this document represents components of the legal health record. It is not the complete legal health record.[facility]
--- OUTSIDE RECORDS SUMMARY | 2025-04-04 16:30 | XMS_ITS | Encounter Summary ---
Author Organization [facility] Address [address] [place] [address] Phone Care Team Providers Care Car Salter Name Role Phone Khadra Barba MD Primary Care Provider Shaggy Hopkins MD Unavailable [phone] Danny Emanuel MD Primary Care Provider [phone] Encounter Details Date Type Department Care Team (Late st Contact Info) Description 10/17/2020 Procedure Pass [facility] EKG [address] [place] [address] Social History Tobacco Use Types Packs/Day Years [...] Description 04/24/2025 1:30 PM EST Office Visit [facility], Department of Neurology [address] [place] [address] Johnson lUloa MD [address] [address] [email or web address] documented as of this encounter Visit Diagnoses Not on filedocumented in this encounter Additional Health Concerns Assessment Noted Time PHQ-2 Depression Total Score: 0 08/27/19 21 4:02 PM EDT documented as of this encounter Care Teams Car Salter Relationship Specialty Start Date End Date Khadra Barba MD [address] [place] [address] PCP - General 09/26/14 09/12/23 Danny Emanuel MD [address] [place] [address] PCP - General Internal Medicine 09/13/23 Shaggy Hopkins MD 1 [place] [address] Historical LMR Provider 10/03/14 documented as of this encounter Additional Source Comments The information contained in this document represents components of the legal health record. It is not the complete legal health record.[facility]
--- OUTSIDE RECORDS SUMMARY | 2025-04-04 16:30 | XMS_ITS | Encounter Summary ---
Author Organization [facility] Address [address] [place] [address] Phone Care Team Providers Care Painter Tumbling Barrel Name Role Phone Shaggy Hopkins MD Unavailable [phone] Danny Emanuel MD Primary Care Provider [phone] Encounter Details Date Type Department Care Team (Late st Contact Info) Description 09/13/2023 Procedure Pass [address] [address] Social History Tobacco Use Types Packs/Day Years [...] Description 04/24/2025 1:30 PM EST [facility], Department of Neurology [address] [place] [address] Johnson Ulloa MD [address] [place] [address] [email or web address] documented as of this encounter Visit Diagnoses Not on filedocumented in this encounter Additional Health Concerns Assessment Noted Time PHQ-2 Depression Total Score: 0 08/27/19 21 4:02 PM EDT documented as of this encounter Care Teams Painter Tumbling Barrel Relationship Specialty Start Date End Date Danny Emanuel MD [address] [place] [address] PCP - General Internal Medicine 09/13/23 Shaggy Hopkins MD 1 [facility] [address] [place] [address] Historical LMR Provider 10/03/14 documented as of this encounter Additional Source Comments The information contained in this document represents components of the legal health record. It is not the complete legal health record.[facility]
--- OUTSIDE RECORDS SUMMARY | 2025-04-04 16:30 | XMS_ITS | Encounter Summary ---
Author Organization [facility] Address [address] [place] [address] Phone Care Team Providers Care Entry Level Civil Engineer Name Role Phone Khadra Barba MD Primary Care Provider Shaggy Hopkins MD Unavailable [phone] Danny Emanuel MD Primary Care Provider [phone] Encounter Details Date Type Department Care Team (Late st Contact Info) Description 07/27/2023 Procedure Pass [facility] MR Imaging, [place] [address] [place] [address] Social History Tobacco Use Types Packs/Day Years [...] PM EST Office Visit [facility], Department of Neurology [address] [place] [address] Johnson Ulloa MD [address] [address] [email or web address] documented as of this encounter Visit Diagnoses Not on filedocumented in this encounter Additional Health Concerns Assessment Noted Time PHQ-2 Depression Total Score: 0 08/27/19 21 4:02 PM EDT documented as of this encounter Care Teams Entry Level Civil Engineer Relationship Specialty Start Date End Date Khadra Barba MD [address] [place] [address] PCP - General 09/26/14 09/12/23 Danny Emanuel MD [address] [place] [address] PCP - General Internal Medicine 09/13/23 Shaggy Hopkins MD 1 [facility] [address] [place] [address] Historical LMR Provider 10/03/14 documented as of this encounter Additional Source Comments The information contained in this document represents components of the legal health record. It is not the complete legal health record.[facility]
--- OUTSIDE RECORDS SUMMARY | 2025-04-04 16:30 | XMS_ITS | Encounter Summary ---
Author Organization [facility] Address [address] [place] [address] Phone Care Team Providers Care Bill Distributor Name Role Phone Khadra Barba MD Primary Care Provider Shaggy Hopkins MD Unavailable [phone] Danny Emanuel MD Primary Care Provider [phone] Encounter Details Date Type Department Care Team (Late st Contact Info) Description 09/15/2020 Procedure Pass [facility] MR Imaging, [place] [address] [place] [address] Social History Tobacco Use Types Packs/Day Years [...] PM EST Office Visit [facility], Department of Neurology [address] [place] [address] Johnson Ulloa MD [address] [address] [email or web address] documented as of this encounter Visit Diagnoses Not on filedocumented in this encounter Additional Health Concerns Assessment Noted Time PHQ-2 Depression Total Score: 0 08/27/19 21 4:02 PM EDT documented as of this encounter Care Teams Bill Distributor Relationship Specialty Start Date End Date Khadra Barba MD [address] [place] [address] PCP - General 09/26/14 09/12/23 Danny Emanuel MD [address] [place] [address] PCP - General Internal Medicine 09/13/23 Shaggy Hopkins MD 1 [facility] [address] [place] [address] Historical LMR Provider 10/03/14 documented as of this encounter Additional Source Comments The information contained in this document represents components of the legal health record. It is not the complete legal health record.[facility]
--- OUTSIDE RECORDS SUMMARY | 2025-04-04 16:30 | XMS_ITS | Encounter Summary ---
Author Organization [facility] Address [address] [place] [address] Phone Care Team Providers Care Communications Intern Name Role Phone Khadra Barba MD Primary Care Provider Shaggy Hopkins MD Unavailable Danny Emanuel MD Primary Care Provider [phone] Encounter Details Date Type Department Care Team (Late st Contact Info) Description 07/27/2023 Procedure Pass [facility] MR Imaging, [place] [address] [place] [address] Social History Tobacco Use Types Packs/Day Years [...] PM EST Office Visit [facility], Department of Neurology [address] [place] [address] Johnson Ulloa MD [address] [address] [email or web address] documented as of this encounter Visit Diagnoses Not on filedocumented in this encounter Additional Health Concerns Assessment Noted Time PHQ-2 Depression Total Score: 0 08/27/19 21 4:02 PM EDT documented as of this encounter Care Teams Communications Intern Relationship Specialty Start Date End Date Khadra Barba MD [address] [place] [address] PCP - General 09/26/14 09/12/23 Danny Emanuel MD [address] [place] [address] PCP - General Internal Medicine 09/13/23 Shaggy Hopkins MD 1 [facility] [address] [place] [address] Historical LMR Provider 10/03/14 documented as of this encounter Additional Source Comments The information contained in this document represents components of the legal health record. It is not the complete legal health record.[facility]
--- OUTSIDE RECORDS SUMMARY | 2025-04-04 16:30 | XMS_ITS | Encounter Summary ---
Author Organization [facility] Address [address] [place] [address] Phone Care Team Providers Care Steam Fitter Supervisor Maintenance Name Role Phone Khadra Barba MD Primary Care Provider Shaggy Hopkins MD Unavailable [phone] Danny Emanuel MD Primary Care Provider [phone] Encounter Details Date Type Department Care Team (Late st Contact Info) Description 08/07/2018 Procedure Pass [facility] MR Imaging, [place] [address] [place] [address] Social History Tobacco Use Types Packs/Day Years [...] Description 04/24/2025 1:30 PM EST Office Visit [facility], Department of Neurology [address] [place] [address] Johnson Ulloa MD [address] [address] [email or web address]. [email or web address] documented as of this encounter Visit Diagnoses Not on filedocumented in this encounter Care Teams Steam Fitter Supervisor Maintenance Relationship Specialty Start Date End Date Khadra Barba MD [address] [place] [address] PCP - General 09/26/14 09/12/23 Danny Emanuel MD [address] [place] [address] PCP - General Internal Medicine 09/13/23 Shaggy Hopkins MD 1 [place] [address] Historical LMR Provider 10/03/14 documented as of this encounter Additional Source Comments The information contained in this document represents components of the legal health record. It is not the complete legal health record.[facility]
--- OUTSIDE RECORDS SUMMARY | 2025-04-04 16:30 | XMS_ITS | Encounter Summary ---
Author Organization [facility] Address [address] [place] [address] Phone Care Team Providers Care Electronic Technician Name Role Phone Khadra Barba MD Primary Care Provider Shaggy Hopkins MD Unavailable [phone] Danny Emanuel MD Primary Care Provider [phone] Encounter Details Date Type Department Care Team (Late st Contact Info) Description 07/15/2020 Procedure Pass [facility] MR Imaging, [place] [address] [place] [address] Social History Tobacco Use Types Packs/Day Years [...] Description 04/24/2025 1:30 PM EST Office Visit [facility], Department of Neurology 60 [place] [address] Johnson Ulloa MD 60 [facility] [address] [place] [address] [email or web address] documented as of this encounter Visit Diagnoses Not on filedocumented in this encounter Care Teams Electronic Technician Relationship Specialty Start Date End Date Khadra Barba MD [address] [place] [address] PCP - General 09/26/14 09/12/23 Danny Emanuel MD [address] [place] [address] PCP - General Internal Medicine 09/13/23 Shaggy Hopkins MD 1 [facility] [address] [place] [address] Historical LMR Provider 10/03/14 documented as of this encounter Additional Source Comments The information contained in this document represents components of the legal health record. It is not the complete legal health record.[facility]
--- OUTSIDE RECORDS SUMMARY | 2025-04-04 16:30 | XMS_ITS | Encounter Summary ---
Author Organization [facility] Address [address] [place] [address] Phone Care Team Providers Care Skoog Machine Operator Name Role Phone Khadra Barba MD Primary Care Provider Shaggy Hopkins MD Unavailable [phone] Danny Emanuel MD Primary Care Provider [phone] Encounter Details Date Type Department Care Team (Late st Contact Info) Description 08/25/2020 Procedure Pass [facility] MR Imaging, [place] [address] [place] [address] Social History Tobacco Use Types Packs/Day Years [...] PM EST Office Visit [facility], Department of Neurology [address] [place] [address] Johnson Ulloa MD [address] [address] [email or web address] documented as of this encounter Visit Diagnoses Not on filedocumented in this encounter Additional Health Concerns Assessment Noted Time PHQ-2 Depression Total Score: 0 08/27/19 21 4:02 PM EDT documented as of this encounter Care Teams Skoog Machine Operator Relationship Specialty Start Date End Date Khadra Barba MD [address] [place] [address] PCP - General 09/26/14 09/12/23 Danny Emanuel MD [address] [place] [address] PCP - General Internal Medicine 09/13/23 Shaggy Hopkins MD 1 [facility] [address] [place] [address] Historical LMR Provider 10/03/14 documented as of this encounter Additional Source Comments The information contained in this document represents components of the legal health record. It is not the complete legal health record.[facility]
--- OUTSIDE RECORDS SUMMARY | 2025-04-04 16:30 | XMS_ITS | Encounter Summary ---
Author Organization [facility] Address [address] [place] [address] Phone Care Team Providers Care Amortization Clerk Name Role Phone Khadra Barba MD Primary Care Provider Shaggy Hopkins MD Unavailable [phone] Danny Emanuel MD Primary Care Provider [phone] Encounter Details Date Type Department Care Team (Late st Contact Info) Description 04/01/2022 Procedure Pass [facility] MR Imaging, [place] [address] [place] [address] Social History Tobacco Use Types Packs/Day Years [...] Description 04/24/2025 1:30 PM EST Office Visit [facility], Department of Neurology [address] [place] [address] Johnson Ulloa MD [address] [address] [email or web address]. [email or web address] documented as of this encounter Visit Diagnoses Not on filedocumented in this encounter Additional Health Concerns Assessment Noted Time PHQ-2 Depression Total Score: 0 08/27/19 21 4:02 PM EDT documented as of this encounter Care Teams Amortization Clerk Relationship Specialty Start Date End Date Khadra Barba MD [address] [place] [address] PCP - General 09/26/14 09/12/23 Danny Emanuel MD [address] [place] [address] PCP - General Internal Medicine 09/13/23 Shaggy Hopkins MD [address] [id number] Historical LMR Provider 10/03/14 documented as of this encounter Additional Source Comments The information contained in this document represents components of the legal health record. It is not the complete legal health record.[facility]
--- OUTSIDE RECORDS SUMMARY | 2025-04-04 16:30 | XMS_ITS | Encounter Summary ---
Author Organization [facility] Address [address] [place] [address] Phone Care Team Providers Care Systems Qa Analyst Name Role Phone Khadra Barba MD Primary Care Provider Shaggy Hopkins MD Unavailable [phone] Danny Emanuel MD Primary Care Provider [phone] Encounter Details Date Type Department Care Team (Late st Contact Info) Description 07/27/2023 Procedure Pass [facility] MR Imaging, Flores [address] [place] [address] Social History Tobacco Use Types Packs/Day Years [...] [facility], Department of Neurology 60 [place] [address] Johnson Ulloa MD [address] [address] [email or web address] documented as of this encounter Visit Diagnoses Not on filedocumented in this encounter Additional Health Concerns Assessment Noted Time PHQ-2 Depression Total Score: 0 08/27/19 21 4:02 PM EDT documented as of this encounter Care Teams Systems Qa Analyst Relationship Specialty Start Date End Date Khadra Barba MD [address] [place] [address] PCP - General 09/26/14 09/12/23 Danny Emanuel MD [address] [place] [address] PCP - General Internal Medicine 09/13/23 Shaggy Hopkins MD 1 [facility] [address] [place] [address] Historical LMR Provider 10/03/14 documented as of this encounter Additional Source Comments The information contained in this document represents components of the legal health record. It is not the complete legal health record.[facility]
--- OUTSIDE RECORDS SUMMARY | 2025-04-04 16:30 | XMS_ITS | Encounter Summary ---
Author Organization [facility] Address [address] [place] [address] Phone Care Team Providers Care Corporate Recycling Manager Name Role Phone Khadra Barba MD Primary Care Provider Shaggy Hopkins MD Unavailable [phone] Danny Emanuel MD Primary Care Provider Encounter Details Date Type Department Care Team (Late st Contact Info) Description 12/27/2017 Procedure Pass [facility] MR Imaging, [place] [address] [place] [address] Social History Tobacco Use Types Packs/Day Years [...] Description 04/24/2025 1:30 PM EST Office Visit [facility], Department of Neurology [address] [place] [address] Johnson Ulloa MD [address] [address] [email or web address] documented as of this encounter Visit Diagnoses Not on filedocumented in this encounter Care Teams Corporate Recycling Manager Relationship Specialty Start Date End Date Khadra Barba MD [address] [place] [address] PCP - General 09/26/14 09/12/23 Danny Emanuel MD [address] [place] [address] PCP - General Internal Medicine 09/13/23 Shaggy Hopkins MD 1 [place] [address] Historical LMR Provider 10/03/14 documented as of this encounter Additional Source Comments The information contained in this document represents components of the legal health record. It is not the complete legal health record.[facility]
--- OUTSIDE RECORDS SUMMARY | 2025-04-04 16:30 | XMS_ITS | Encounter Summary ---
Author Organization [facility] Address [address] [place] [address] Phone Care Team Providers Care Pressure Welder Name Role Phone Khadra Barba MD Primary Care Provider Shaggy Hopkins MD Unavailable [phone] Danny Emanuel MD Primary Care Provider [phone] Encounter Details Date Type Department Care Team (Late st Contact Info) Description 07/15/2020 Procedure Pass [facility] MR Imaging, [place] [address] [place] [address] Social History Tobacco Use Types Packs/Day Years [...] EST Office Visit [facility], Department of Neurology [address] [place] [address] Johnson Ulloa MD [address] [address] [email or web address] documented as of this encounter Visit Diagnoses Not on filedocumented in this encounter Care Teams Pressure Welder Relationship Specialty Start Date End Date Khadra Barba MD [address] [place] [address] PCP - General 09/26/14 09/12/23 Danny Emanuel MD [address] [place] [address] PCP - General Internal Medicine 09/13/23 Shaggy Hopkins MD 1 [place] [address] Historical LMR Provider 10/03/14 documented as of this encounter Additional Source Comments The information contained in this document represents components of the legal health record. It is not the complete legal health record.[facility]
--- OUTSIDE RECORDS SUMMARY | 2025-04-04 16:30 | XMS_ITS | Encounter Summary ---
Author Organization [facility] Address [address] [place] [address] Phone Care Team Providers Care Tumblers Supervisor Name Role Phone Khadra Barba MD Primary Care Provider Shaggy Hopkins MD Unavailable [phone] Danny Emanuel MD Primary Care Provider [phone] Encounter Details Date Type Department Care Team (Late st Contact Info) Description 07/15/2020 Procedure Pass [facility] MR Imaging, Flores [address] [place] [address] Social History Tobacco Use Types Packs/Day Years [...] Description 04/24/2025 1:30 PM EST Office Visit [facility], Department of Neurology 60 [place] [address] Johnson Ulloa MD [address] [address] [email or web address] documented as of this encounter Visit Diagnoses Not on filedocumented in this encounter Care Teams Tumblers Supervisor Relationship Specialty Start Date End Date Khadra Barba MD [address] [place] [address] PCP - General 09/26/14 09/12/23 Danny Emanuel MD [address] [place] [address] PCP - General Internal Medicine 09/13/23 Shaggy Hopkins MD 1 [place] [address] Historical LMR Provider 10/03/14 documented as of this encounter Additional Source Comments The information contained in this document represents components of the legal health record. It is not the complete legal health record.[facility]
--- OUTSIDE RECORDS SUMMARY | 2025-04-04 16:30 | XMS_ITS | Encounter Summary ---
Author Organization [facility] Address [address] [place] [address] Phone Care Team Providers Care Auditing Specialist Name Role Phone Khadra Barba MD Primary Care Provider Shaggy Hopkins MD Unavailable [phone] Danny Emanuel MD Primary Care Provider [phone] Encounter Details Date Type Department Care Team (Late st Contact Info) Description 09/04/2020 Procedure Pass [facility] [address] [place] [address] Social History Tobacco Use Types Packs/Day Years [...] Description 04/24/2025 1:30 PM EST Office Visit [facility], Department of Neurology 60 [place] [address] Johnson Ulloa MD [address] [address] [email or web address]. [email or web address] documented as of this encounter Visit Diagnoses Not on filedocumented in this encounter Additional Health Concerns Assessment Noted Time PHQ-2 Depression Total Score: 0 08/27/19 21 4:02 PM EDT documented as of this encounter Care Teams Auditing Specialist Relationship Specialty Start Date End Date Khadra Barba MD [address] [place] [address] PCP - General 09/26/14 09/12/23 Danny Emanuel MD [address] [place] [address] PCP - General Internal Medicine 09/13/23 Shaggy Hopkins MD 1 [place] [address] Historical LMR Provider 10/03/14 documented as of this encounter Additional Source Comments The information contained in this document represents components of the legal health record. It is not the complete legal health record.[facility]
--- OUTSIDE RECORDS SUMMARY | 2025-04-04 16:30 | XMS_ITS | Encounter Summary ---
Author Organization [facility] Address [address] [place] [address] Phone Care Team Providers Care Bed Teacher Name Role Phone Khadra Barba MD Primary Care Provider Shaggy Hopkins MD Unavailable [phone] Danny Emanuel MD Primary Care Provider [phone] Encounter Details Date Type Department Care Team (Late st Contact Info) Description 08/22/2020 Telephone [facility] 60 [place] [address] Janis Baez MD [address] [place] [address] [email or web address] Social History Tobacco Use Types Packs/Day Years [...] Description 04/24/2025 1:30 PM EST Office Visit [facility], Department of Neurology 60 [place] [address] Johnson Ulloa MD [address] [address] [email or web address] documented as of this encounter Visit Diagnoses Diagnosis Encounter for preoperative screening laboratory testing for COVID-19 virus- Primary documented in this encounter Additional Health Concerns Assessment Noted Time PHQ-2 Depression Total Score: 0 08/21/19 21 11:25 AM EDT documented as of this encounter Care Teams Bed Teacher Relationship Specialty Start Date End Date Khadra Barba MD [address] [place] [address] PCP - General 09/26/14 09/12/23 Danny Emanuel MD [address] [place] [address] PCP - General Internal Medicine 09/13/23 Shaggy Hopkins MD 1 [place] [address] Historical LMR Provider 10/03/14 documented as of this encounter Additional Source Comments The information contained in this document represents components of the legal health record. It is not the complete legal health record.[facility]
--- OUTSIDE RECORDS SUMMARY | 2025-04-04 16:30 | XMS_ITS | Patient Health Record ---
Author Organization [employer] [facility] Address [address] [place] [address] Care Team Providers Care Commissary Production Supervisor Name Role Phone Regi Barrow Unavailable [phone] Reason For Referral No Information Medications Medication SIG (Take, Route, Fr equency, Duration) Notes Start Date End Date Status Provigil 200MG 1 ORAL daily; Duration: -3 Simon-MJ 09/07/19 13 Active Lyrica 150MG 1 ORAL three times d aily; Duration: -3 Simon-MJ 09/06/2012 Active Problems Problem Type SNOMED Code ICD Code Onset Dates Problem Status W/U Status Risk Notes Problem Gynecological examination normal ([id number]) Routine gynecological examination (V72.31) Active confirmed Major Plan Of Treatment No Information Insurance Providers Payer Name Payer Address Payer Phone Subscriber Number Group Number Insured Name Patient Relationship to Insured Coverage Start Date Coverage End Date [employer] [address] [address] AMADO DavidJOSUE [address] [id number] BELA SAPP Self - patient is the insured
--- OUTSIDE RECORDS SUMMARY | 2025-04-04 16:30 | XMS_ITS | Encounter Summary ---
Author Organization [facility] Address [address] [place] [address] Phone Care Team Providers Care Negotiations Director Name Role Phone Khadra Barba MD Primary Care Provider Shaggy Hopkins MD Unavailable [phone] Danny Emanuel MD Primary Care Provider [phone] Encounter Details Date Type Department Care Team (Late st Contact Info) Description 12/27/2017 Procedure Pass [facility] MR Imaging, Flores [address] [place] [address] Social History Tobacco Use Types Packs/Day Years [...] Description 04/24/2025 1:30 PM EST Office Visit [facility], Department of Neurology 60 [place] [address] Johnson Ulloa MD [address] [address] [email or web address] documented as of this encounter Visit Diagnoses Not on filedocumented in this encounter Care Teams Negotiations Director Relationship Specialty Start Date End Date Khadra Barba MD [address] [place] [address] PCP - General 09/26/14 09/12/23 Danny Emanuel MD [address] [place] [address] PCP - General Internal Medicine 09/13/23 Shaggy Hopkins MD 1 [place] [address] Historical LMR Provider 10/03/14 documented as of this encounter Additional Source Comments The information contained in this document represents components of the legal health record. It is not the complete legal health record.[facility]
--- OUTSIDE RECORDS SUMMARY | 2025-04-04 16:30 | XMS_ITS | Encounter Summary ---
Author Organization [facility] Address [address] [place] [address] Phone Care Team Providers Care Tobacco Prevention Health Educator Name Role Phone Shaggy Hopkins MD Unavailable [phone] Danny Emanuel MD Primary Care Provider [phone] Encounter Details Date Type Department Care Team (Late st Contact Info) Description 10/13/2023 Procedure Pass [facility] [employer] [facility] [address] [place] [address] Social History Tobacco Use Types Packs/Day Years [...] Description 04/24/2025 1:30 PM EST Office Visit [facility], Department of Neurology 60 [place] [address] Johnson Ulloa MD [address] [place] [address] [email or web address] documented as of this encounter Visit Diagnoses Not on filedocumented in this encounter Additional Health Concerns Assessment Noted Time PHQ-2 Depression Total Score: 0 08/27/19 21 4:02 PM EDT documented as of this encounter Care Teams Tobacco Prevention Health Educator Relationship Specialty Start Date End Date Danny Emanuel MD [address] [place] [address] PCP - General Internal Medicine 09/13/23 Shaggy Hopkins MD [address] [address] Historical LMR Provider 10/03/14 documented as of this encounter Additional Source Comments The information contained in this document represents components of the legal health record. It is not the complete legal health record.[facility]
--- OUTSIDE RECORDS SUMMARY | 2025-04-04 16:30 | XMS_ITS | Encounter Summary ---
Author Organization [facility] Address [address] [place] [address] Phone Care Team Providers Care Flagger Name Role Phone Khadra Barba MD Primary Care Provider Shaggy Hopkins MD Unavailable [phone] Danny Emanuel MD Primary Care Provider Encounter Details Date Type Department Care Team (Late st Contact Info) Description 12/27/2017 Procedure Pass [facility] MR Imaging, Flores [address] [place] [address] Social History Tobacco Use Types Packs/Day Years [...] Description 04/24/2025 1:30 PM EST Office Visit [facility], Department of Neurology 60 [place] [address] Johnson Ulloa MD [address] [address] [email or web address] documented as of this encounter Visit Diagnoses Not on filedocumented in this encounter Care Teams Flagger Relationship Specialty Start Date End Date Khadra Barba MD [address] [place] [address] PCP - General 09/26/14 09/12/23 Danny Emanuel MD [address] [place] [address] PCP - General Internal Medicine 09/13/23 Shaggy Hopkins MD 1 [place] [address] Historical LMR Provider 10/03/14 documented as of this encounter Additional Source Comments The information contained in this document represents components of the legal health record. It is not the complete legal health record.[facility]
--- OUTSIDE RECORDS SUMMARY | 2025-04-04 16:31 | XMS_ITS | Encounter Summary ---
Author Organization [facility] Address [address] [place] [address] Phone Care Team Providers Care Brush Trimming Machine Setter Name Role Phone Khadra Barba MD Primary Care Provider Shaggy Hopkins MD Unavailable [phone] Danny Emanuel MD Primary Care Provider [phone] Encounter Details Date Type Department Care Team (Late st Contact Info) Description 04/13/2022 Telephone [facility] Otolaryngology [address] [place], [place] [address]2 [place] [address] Johnson Navarro MD [address] [place] [phone] [email or web address] Social History Tobacco Use Types Packs/Day Years [...] Description 04/24/2025 1:30 PM EST Office Visit [facility], Department of Neurology [address] [place] [address] Johnson Ulloa MD [address] [address] [email or web address] documented as of this encounter Visit Diagnoses Not on filedocumented in this encounter Additional Health Concerns Assessment Noted Time PHQ-2 Depression Total Score: 0 08/27/19 21 4:02 PM EDT documented as of this encounter Care Teams Brush Trimming Machine Setter Relationship Specialty Start Date End Date Khadra Barba MD [address] [place] [address] PCP - General 09/26/14 09/12/23 Danny Emanuel MD [address] [place] [address] PCP - General Internal Medicine 09/13/23 Shaggy Hopkins MD 1 [facility] [address] [place] [address] Historical LMR Provider 10/03/14 documented as of this encounter Additional Source Comments The information contained in this document represents components of the legal health record. It is not the complete legal health record.[facility]
--- OUTSIDE RECORDS SUMMARY | 2025-04-04 16:31 | XMS_ITS | Encounter Summary ---
Author Organization [facility] Address [address] [place] [address] Phone Care Team Providers Care Hasher Operator Name Role Phone Khadra Barba MD Primary Care Provider Shaggy Hopkins MD Unavailable [phone] Danny Emanuel MD Primary Care Provider [phone] Encounter Details Date Type Department Care Team (Late st Contact Info) Description 04/01/2022 Procedure Pass [facility] MR Imaging, Flores [address] [place] [address] Social History Tobacco Use Types Packs/Day Years [...] Description 04/24/2025 1:30 PM EST Office Visit [facility], Department of Neurology [address] [place] [address] Johnson Ulloa MD [address] [address] [email or web address] documented as of this encounter Visit Diagnoses Not on filedocumented in this encounter Additional Health Concerns Assessment Noted Time PHQ-2 Depression Total Score: 0 08/27/19 21 4:02 PM EDT documented as of this encounter Care Teams Hasher Operator Relationship Specialty Start Date End Date Khadra Barba MD [address] [place] [address] PCP - General 09/26/14 09/12/23 Danny Emanuel MD [address] [place] [address] PCP - General Internal Medicine 09/13/23 Shaggy Hopkins MD 1 [place] [id number] Historical LMR Provider 10/03/14 documented as of this encounter Additional Source Comments The information contained in this document represents components of the legal health record. It is not the complete legal health record.[facility]
--- OUTSIDE RECORDS SUMMARY | 2025-04-04 16:31 | XMS_ITS | Clinical Summary ---
Author Organization [facility] Address [address] [place] [address] Phone Care Team Providers Care Pie Chef Name Role Phone Shaggy [place] MD Unavailable [phone] Danny Ha MD Primary Care Provider [phone] Allergies Active Allergy Reactions Criticality Noted Date [...] tablet Take 600 mg by mouth. Active diphenhydramine -lidocaine-alum -mag-simethicon e (MAGIC MOUTHWASH-BLM) [id number] mg/30mL suspension Swish and spit 10 mL 3 (three) times a day. 900 mL 11 4 04/28/20 Active Additional Information Patient not taking.Reported on 10/19/2024 gabapentin (NEURONTIN) 100 MG capsuleIndicati ons:Neuralgia Take 1-2 capsules (100-200 mg total) by mouth 3 (three) times a day as needed (nerve pain). 180 capsule 5 Active baclofen (LIORESAL) 5 mg tabletIndicatio ns:Spasticity Take 1-2 tablets (5-10 mg total) by mouth 3 (three) times a day as needed for spasm. 180 tablet 5 5 Active modafiniL (PROVIGIL) 100 MG tabletIndicatio ns:Other fatigue Take 1 tablet (100 mg total) by mouth daily. 30 tablet 5 5 Active Active Problems Problem Noted Date Diagnosed Date [...] Encounters Date Type Department Care Team Description 02/07/2025 8:30 AM EDT Telemedicine [facility], Department of Neurology [address] [place] [address] Johnson Ulloa MD Multiple sclerosis (Primary Dx) 02/05/2025 4:40 PM EDT - 02/05/2025 11:59 PM EDT Hospital Encounter [facility] MR Imaging, [address] [place] [address] Johnson Ulloa MD Discharge Disposition: Home or Self Care 01/30/2025 Telephone [facility], Department of Neurology [address] [place] [address] Johnson Ulloa MD New symptoms 10/19/2024 Procedure Pass [facility] MR Imaging, [address] [place] [address] 10/19/2024 Procedure Pass [facility] MR Imaging, [address] [place] [address] 10/19/2024 Procedure Pass [facility] MR Imaging, [address] [place] [address] from Last 3 Months Immunizations No known [...] EST Office Visit [facility], Department of Neurology [address] [place] [address] Johnson Ulloa MD [address] [place] [address] [email or web address] Health Maintenance Due Date Last Done Comments LIPID PANEL 1972 PAP SMEAR 1993 MAMMOGRAM 2012 COLOGUARD 2017 FIT TEST 2017 FOBT 2017 SIGMOIDOSCOPY 2017 VIRTUAL COLONOSCOPY 2017 DEPRESSION SCREENING 08/26/2021 08/26/2020 PNEUMOCOCCAL VACCINES (50+ years) (1 of 1 - PCV) 2022 ZOSTER VACCINES (1 of 2) 2022 INFLUENZA VACCINE (#1) 2024 COVID-19 VACCINE (3 - season) 2025 03/06/2021, 12/21/2020 SCREENING FOR DIABETES 04/20/2025 04/20/2022 COLONOSCOPY 10/12/2030 10/13/2023, 09/04/2020 COLORECTAL CANCER SCREENING 10/12/2030 Adult Td,Tdap Booster 09/18/2033 09/19/2023 RSV VACCINE (1 - 1-dose 75+ series) 10/28/2047 HIV ONE-TIME SCREENING (18-65 YEARS) Completed 03/26/2016 HEPATITIS C SCREENING Completed 09/23/2022 , 09/23/2022, 03/24/2021, Additional history exists SMOKING STATUS SCREENING (Once After 26 Yrs) Completed 10/19/2024 HEPATITIS A VACCINES Aged Out No long er eligible based on patient's age to complete this topic HIB VACCINES Aged Out No longer eligi ble based on patient's age to complete this topic IPV VACCINES Aged Out No longer eligi ble based on patient's age to complete this topic MENINGOCOCCAL VACCINES (ACWY) Aged Out No longer eligible based on patient's age to complete this topic MENINGOCOCCAL VACCINES (B) Aged Out N o longer eligible based on patient's age to complete this topic Medical Devices Not on file Procedures Procedure Name Priority Date/Time Associated Diagnosis Comments MRI THORACIC SPINE (NEURO) WITHOUT CONTRAST Routine 02/05/2025 5:41 PM EDT Multiple sclerosis MRI CERVICAL SPINE (NEURO) FOCUS WITHOUT CONTRAST Routine 02/05/2025 5:41 PM EDT Multiple sclerosis MRI BRAIN (MS) WITHOUT CONTRAST Routine 02/05/2025 5:41 PM EDT Multiple sclerosis ENDOSCOPY, COLON 10/13/2023 11:4 5 AM EDT HEPATITIS B CORE ANTIBODY, TOTAL Routine 09/23/2022 3:01 PM EDT Multiple sclerosis from Last 3 Months or Most Recently Relevant to Health Maintenance Results * MRI THORACIC SPINE (NEURO) WITHOUT CONTRAST (02/05/2025 5:41 PM EDT) Anatomical Region Laterality Modality T-spine Magnetic Resonan ce 02/05/2025 7:11 PM EDT Impressions 02/05/2025 7:14 PM EDT No interval change of cervical and thoracic lesions. Narrative 02/05/2025 7:14 PM EDT MRI CERVICAL SPINE (NEURO) FOCUS WITHOUT CONTRAST, MRI THORACIC SPINE (NEURO) WITHOUT CONTRAST Referring clinician's provided indication for this examination in Epic: * Multiple sclerosis, monitor; Known Multple Sclerosis, please compare with prior TECHNIQUE: MRI CERVICAL SPINE (NEURO) FOCUS WITHOUT CONTRAST, MRI THORACIC SPINE (NEURO) WITHOUT CONTRAST Multi-sequence, multi-planar MRI of the cervical spine and thoracic was performed without intravenous contrast. COMPARISON: 09/12/2023 FINDINGS: CERVICAL SPINE: Straightening of normal lordotic curvature. Degenerative changes of C-spine again noted mild and worse at C5-6 level. Multiple cervical foci again noted most obvious at the C2-3 T3-4 C6-7 levels. T-spine: Multiple scattered thoracic lesions also noted most obvious T6-7 and T9-T10 and unchanged from prior exam. Procedure Note Edison Main MD - 02/05/2025 MRI CERVICAL SPINE (NEURO) FOCUS WITHOUT CONTRAST, MRI THORACIC SPINE(NEURO) WITHOUT CONTRAST Referring clinician's provided indication for this examination in Psychiatric: *Multiple sclerosis, monitor; Known Multple Sclerosis, please compare withprior TECHNIQUE: MRI CERVICAL SPINE (NEURO) FOCUS WITHOUT CONTRAST, MRI THORACICSPINE (NEURO) WITHOUT CONTRAST Multi-sequence, multi-planar MRI of the cervical spine and thoracic wasperformed without intravenous contrast. COMPARISON: 09/12/2023 FINDINGS: CERVICAL SPINE: Straightening of normal lordotic curvature. Degenerative changes ofC-spine again noted mild and worse at C5-6 level. Multiple cervical fociagain noted most obvious at the C2-3 T3-4 C6-7 levels. T-spine: Multiple scattered thoracic lesions also noted most obvious T6-7and T9- T10 and unchanged from prior exam. IMPRESSION: No interval change of cervical and thoracic lesions. Johnson Ulloa MD IMG MR XSPECIALTY Final Result * MRI CERVICAL SPINE (NEURO) FOCUS WITHOUT CONTRAST (02/05/2025 5:41 PM EDT) Anatomical Region Laterality Modality C-spine Magnetic Resonan ce 02/05/2025 7:11 PM EDT Impressions 02/05/2025 7:14 PM EDT No interval change of cervical and thoracic lesions. Narrative 02/05/2025 7:14 PM EDT MRI CERVICAL SPINE (NEURO) FOCUS WITHOUT CONTRAST, MRI THORACIC SPINE (NEURO) WITHOUT CONTRAST Referring clinician's provided indication for this examination in Epic: * Multiple sclerosis, monitor; Known Multple Sclerosis, please compare with prior TECHNIQUE: MRI CERVICAL SPINE (NEURO) FOCUS WITHOUT CONTRAST, MRI THORACIC SPINE (NEURO) WITHOUT CONTRAST Multi-sequence, multi-planar MRI of the cervical spine and thoracic was performed without intravenous contrast. COMPARISON: 09/12/2023 FINDINGS: CERVICAL SPINE: Straightening of normal lordotic curvature. Degenerative changes of C-spine again noted mild and worse at C5-6 level. Multiple cervical foci again noted most obvious at the C2-3 T3-4 C6-7 levels. T-spine: Multiple scattered thoracic lesions also noted most obvious T6-7 and T9-T10 and unchanged from prior exam. Procedure Note Edison Main MD - 02/05/2025 MRI CERVICAL SPINE (NEURO) FOCUS WITHOUT CONTRAST, MRI THORACIC SPINE(NEURO) WITHOUT CONTRAST Referring clinician's provided indication for this examination in Psychiatric: *Multiple sclerosis, monitor; Known Multple Sclerosis, please compare withprior TECHNIQUE: MRI CERVICAL SPINE (NEURO) FOCUS WITHOUT CONTRAST, MRI THORACICSPINE (NEURO) WITHOUT CONTRAST Multi-sequence, multi-planar MRI of the cervical spine and thoracic wasperformed without intravenous contrast. COMPARISON: 09/12/2023 FINDINGS: CERVICAL SPINE: Straightening of normal lordotic curvature. Degenerative changes ofC-spine again noted mild and worse at C5-6 level. Multiple cervical fociagain noted most obvious at the C2-3 T3-4 C6-7 levels. T-spine: Multiple scattered thoracic lesions also noted most obvious T6-7and T9- T10 and unchanged from prior exam. IMPRESSION: No interval change of cervical and thoracic lesions. us Johnson Ulloa MD IMG MR XSPECIALTY Final Result * MRI BRAIN (MS) WITHOUT CONTRAST (02/05/2025 5:41 PM EDT) Anatomical Region Laterality Modality Head Magnetic Resonan ce 02/05/2025 7:09 PM EDT Impressions 02/05/2025 7:11 PM EDT No interval change of demyelinating lesions. Narrative 02/05/2025 7:11 PM EDT MRI BRAIN (MS) WITHOUT CONTRAST Referring clinician's provided indication for this examination in Psychiatric: * Multiple sclerosis, monitor; Known Multple Sclerosis, please compare with prior TECHNIQUE: MRI BRAIN (MS) WITHOUT CONTRAST Multi-sequence, multi-planar MRI of the brain was performed without intravenous contrast. COMPARISON: 09/12/2023 FINDINGS: No callosal atrophy seen. Increased T2 white matter foci noted at the right cerebellum and subcortical white matter unchanged from prior exam. No acute hemorrhage diffusion abnormality seen. Procedure Note Edison Main MD - 02/05/2025 MRI BRAIN (MS) WITHOUT CONTRAST Referring clinician's provided indication for this examination in Epic: *Multiple sclerosis, monitor; Known Multple Sclerosis, please compare withprior TECHNIQUE: MRI BRAIN (MS) WITHOUT CONTRAST Multi-sequence, multi-planar MRI of the brain was performed withoutintravenous contrast. COMPARISON: 09/12/2023 FINDINGS: No callosal atrophy seen. Increased T2 white matter foci noted at the right cerebellum andsubcortical white matter unchanged from prior exam. No acute hemorrhagediffusion abnormality seen. IMPRESSION: No interval change of demyelinating lesions. Johnson Ulloa MD IMG MR HEAD/NECK Final Result * ENDOSCOPY, COLON (10/13/2023 11:45 AM EDT) 10/13/2023 11:4 5 AM EDT Narrative Transcriptions Tamara Tesfaye MD, PhD - 10/13/2023 11:45 AM EDT 850 Gastroenterology Patient Name: Sasha Suárez Procedure Date: 10/13/2023 11:45 AM Date of : 1970 Age: 52 Room: 03 Gender: Female Note Status: Finalized Attending MD: TAMARA TESFAYE MD [id number] Procedure: Colonoscopy Indications: High risk colon cancer surveillance: Personal history of multiple (3 or more) adenomas Patient Profile: 52F history of adenomas (3 in 2020) presenting for surveillance colonoscopy. Providers: TAMARA TESFAYE MD [id number], SARAH COOPER RN Referring MD: DANNY HA [...] based on pathology results. Tamara TESFAYE MD [id number] 10/13/2023 12:19:55 PM Number of Addenda: 0 Note Initiated On: 10/13/2023 11:45 AM us Danny Ha MD GI PROCEDURE ORDERABLES Final Result * Hepatitis B core antibody, total (09/23/2022 3:01 PM EDT) HEP B CORE AB, TOT Nonreactive Nonreactive [facility] Comment: Blood 09/23/2022 3:01 PM EDT 09/23/2022 3:11 PM EDT us Johnson Ulloa MD LAB BLOOD BKR ORD ERABLES Final Result Performing Organization Address City/State/[facility] Co de Phone Number [facility] [address] [place] [phone] from Last 3 Months or Most Recently Relevant to Health Maintenance Insurance [facility] POS EPO [facility]PO [facility] E[facility] EPO [employer] O POS EPO [employer] O POS EPO [employer] O POS EPO Care Teams Pie Chef Relationship Specialty Start Date End Date Danny Ha MD [address] [place] [address] PCP - General Internal Medicine 09/13/23 Shaggy [place] MD 1 [facility] [address] [place] [address] Historical LMR Provider 10/03/14 Additional Source Comments The information contained in this document represents components of the legal health record. It is not the complete legal health record.[facility]
--- OUTSIDE RECORDS SUMMARY | 2025-04-04 16:31 | XMS_ITS | Encounter Summary ---
Author Organization [facility] Address [address] [place] [address] Phone Care Team Providers Care Pipe Stem Aligner Name Role Phone Khadra Barba MD Primary Care Provider Shaggy [place] MD Unavailable [phone] Danny Emanuel MD Primary Care Provider [phone] Encounter Details Date Type Department Care Team (Late st Contact Info) Description 04/01/2022 Procedure Pass [facility] MR Imaging, [address] [place] [address] Social History Tobacco Use Types Packs/Day Years [...] Description 04/24/2025 1:30 PM EST Office Visit [facility], Department of Neurology [address] [place] [address] Johnson Ulloa MD [address] [address] [email or web address] documented as of this encounter Visit Diagnoses Not on filedocumented in this encounter Additional Health Concerns Assessment Noted Time PHQ-2 Depression Total Score: 0 08/27/19 21 4:02 PM EDT documented as of this encounter Care Teams Pipe Stem Aligner Relationship Specialty Start Date End Date Khadra Barba MD [address] [place] [address] PCP - General 09/26/14 09/12/23 Danny Emanuel MD [address] [place] [address] PCP - General Internal Medicine 09/13/23 Shaggy [place] MD [address] [place] [id number] Historical LMR Provider 10/03/14 documented as of this encounter Additional Source Comments The information contained in this document represents components of the legal health record. It is not the complete legal health record.[facility]
--- OUTSIDE RECORDS SUMMARY | 2025-04-04 16:31 | XMS_ITS | Encounter Summary ---
Author Organization [facility] Address [address] [place] [address] Phone Care Team Providers Care Brew House Supervisor Name Role Phone Khadra Barba MD Primary Care Provider Shaggy [place] MD Unavailable [phone] Danny Emanuel MD Primary Care Provider [phone] Encounter Details Date Type Department Care Team (Late st Contact Info) Description 03/25/2022 Procedure Pass [facility] - [facility] Main [place] [address] [place] [address] Social History Tobacco Use Types Packs/Day Years [...] 11:33 AM JESSICAT Glenna Quintana RN * [place] Suicide Severity Rating Scale (Screener/Recent Self-Report) Question [...] Description 04/24/2025 1:30 PM EST Office Visit [facility], Department of Neurology [address] [place] [address] Johnson Ulloa MD 60 [facility] [address] [place] [address] [email or web address] documented as of this encounter Visit Diagnoses Not on filedocumented in this encounter Additional Health Concerns Assessment Noted Time PHQ-2 Depression Total Score: 0 08/27/19 21 4:02 PM EDT documented as of this encounter Care Teams Brew House Supervisor Relationship Specialty Start Date End Date Khadra Barba MD 24 [place] [address] PCP - General 09/26/14 09/12/23 Danny Emanuel MD 24 [place] [address] PCP - General Internal Medicine 09/13/23 Shaggy [place] MD [address] [address] Historical LMR Provider 10/03/14 documented as of this encounter Additional Source Comments The information contained in this document represents components of the legal health record. It is not the complete legal health record.[facility]
== END 2025-04-04 13:42 | disposition home or self-care (01) ==
LOC: HO.RHES 13:10
PROVIDERS: PCP Family Medicine; Visit Provider Internal Medicine Rheumatology
DX: M02.30 Reiter's disease, unspecified site (principal); M25.531 Pain in right wrist; M25.532 Pain in left wrist; M79.641 Pain in right hand; M79.642 Pain in left hand; Z79.1 Long term (current) use of non-steroidal anti-inflammatories (NSAID)
CPT/HCPCS: 99214; G2211

== ENCOUNTER 2025-04-10 13:08 | Outpatient (REF) | payer OTHER, SELFPAY ==
--- OUTSIDE RECORDS SUMMARY | 2025-04-11 01:02 | XMS_ITS | Encounter Summary ---
Author Organization [facility] Address [address] [place] [address] Phone Care Team Providers Care Wood Window And Door Craftsman Name Role Phone Khadra Barba MD Primary Care Provider Shaggy [place] MD Unavailable [phone] Danny Emanuel MD Primary Care Provider [phone] Encounter Details Date Type Department Care Team (Late st Contact Info) Description 09/25/2020 Ophth Exam [facility] [address] [place] [address] Terri Keen MD [address] [place] [address] [email or web address] Social History Tobacco Use Types Packs/Day [...] 4:05 PM EDT Cameron Maurer, RN * [place] Suicide Severity Rating Scale (Screener/Recent Self-Report) Question Answer Date of Assessment Author 1. Wish to be (Past 1 Month) No 021 4:05 PM EDT Cameron Maurer RN 2. Non-Specific Active Suici arutr Thoughts (Past 1 Month) No 09/25/2020 4:05 PM EDT Cameron Maurer RN 6. Suicidal Behavior (Lifetime) No 4:05 PM EDT Cameron Maurer RN documented as of this encounter Plan of Treatment Upcoming Encounters Date Type Department Care Team (Late st Contact Info) Description 04/24/2025 1:30 PM EST [facility], Department of Neurology [address] [place] [address] Johnson Ulloa MD [address] [address] [email or web address] documented as of this encounter Visit Diagnoses Not on filedocumented in this encounter Additional Health Concerns Assessment Noted Time PHQ-2 Depression Total Score: 0 08/27/19 21 4:02 PM EDT documented as of this encounter Care Teams Wood Window And Door Craftsman Relationship Specialty Start Date End Date Khadra Barba MD [address] [place] [address] PCP - General 09/26/14 09/12/23 Danny Emanuel MD [address] [place] [address] PCP - General Internal Medicine 09/13/23 Shaggy [place] MD 1 [facility] [address] [place] [address] Historical LMR Provider 10/03/14 documented as of this encounter Additional Source Comments The information contained in this document represents components of the legal health record. It is not the complete legal health record.[facility]
--- OUTSIDE RECORDS SUMMARY | 2025-04-11 01:02 | XMS_ITS | Encounter Summary ---
Author Organization [facility] Address [address] [place] [address] Phone Care Team Providers Care Floorperson Name Role Phone Shaggy [place] MD Unavailable [phone] Danny Emanuel MD Primary Care Provider [phone] Encounter Details Date Type Department Care Team (Late st Contact Info) Description 10/19/2024 Procedure Pass [facility] MR Imaging, [address] [place] [address] Social History Tobacco Use Types Packs/Day Years [...] Visit [facility], Department of Neurology [address] [place] [address] Johnson Ulloa MD 60 [facility] [address] [place] [address] [email or web address] documented as of this encounter Visit Diagnoses Not on filedocumented in this encounter Additional Health Concerns Assessment Noted Time PHQ-2 Depression Total Score: 0 08/27/19 21 4:02 PM EDT documented as of this encounter Care Teams Floorperson Relationship Specialty Start Date End Date Danny Emanuel MD [address] [place] [address] PCP - General Internal Medicine 09/13/23 Shaggy [place] MD [address] [address] Historical LMR Provider 10/03/14 documented as of this encounter Additional Source Comments The information contained in this document represents components of the legal health record. It is not the complete legal health record.[facility]
--- OUTSIDE RECORDS SUMMARY | 2025-04-11 01:02 | XMS_ITS | Encounter Summary ---
Author Organization [facility] Address [address] [place] [address] Phone Care Team Providers Care Ash Worker Name Role Phone Shaggy [place] MD Unavailable [phone] Danny Emanuel MD Primary Care Provider [phone] Encounter Details Date Type Department Care Team (Late st Contact Info) Description 10/19/2024 Procedure Pass [facility] MR Imaging, [address] [place] [address] Social History Tobacco Use Types Packs/Day Years [...] Description 04/24/2025 1:30 PM EST Office Visit [facility], Department of Neurology [address] [place] [address] Jonhson Ulloa MD 60 [facility] [address] [place] [address] [email or web address] documented as of this encounter Visit Diagnoses Not on filedocumented in this encounter Additional Health Concerns Assessment Noted Time PHQ-2 Depression Total Score: 0 08/27/19 21 4:02 PM EDT documented as of this encounter Care Teams Ash Worker Relationship Specialty Start Date End Date Danny Emanuel MD [address] [place] [address] PCP - General Internal Medicine 09/13/23 Shaggy [place] MD [address] [address] Historical LMR Provider 10/03/14 documented as of this encounter Additional Source Comments The information contained in this document represents components of the legal health record. It is not the complete legal health record.[facility]
--- OUTSIDE RECORDS SUMMARY | 2025-04-11 01:02 | XMS_ITS | Encounter Summary ---
Author Organization [facility] Address [address] [place] [address] Phone Care Team Providers Care Hide Salter Name Role Phone Khadra Barba MD Primary Care Provider Shaggy [place] MD Unavailable [phone] Danny Emanuel MD Primary Care Provider [phone] Encounter Details Date Type Department Care Team (Late st Contact Info) Description 12/06/2016 Procedure Pass [facility] MR Imaging, [address] [place] [address] Social History Tobacco Use Types Packs/Day Years [...] Visit [facility], Department of Neurology [address] [place] [address] Johnson Ulloa MD [address] [place] [address] [place] [address] [email or web address] documented as of this encounter Visit Diagnoses Not on filedocumented in this encounter Care Teams Hide Salter Relationship Specialty Start Date End Date Khadra Barba MD [address] [place] [address] PCP - General 09/26/14 09/12/23 Danny Emanuel MD [address] [place] [address] PCP - General Internal Medicine 09/13/23 Shaggy [place] MD [address] [place] [address] Historical LMR Provider 10/03/14 documented as of this encounter Additional Source Comments The information contained in this document represents components of the legal health record. It is not the complete legal health record.[facility]
--- OUTSIDE RECORDS SUMMARY | 2025-04-11 01:02 | XMS_ITS | Encounter Summary ---
Author Organization [facility] Address [address] [place] [address] Phone Care Team Providers Care Environmental Engineering Aide Name Role Phone Khadra Barba MD Primary Care Provider Shaggy Hopkins MD Unavailable [phone] Danny Emanuel MD Primary Care Provider [phone] Reason for Visit * Reason Onset Date Comments Medication Prior Authorization 04/09/2016 Encounter Details Date Type Department Care Team (Late st Contact Info) Description 04/09/2016 Telephone [facility] [address] Paulo [email or web address] Medication Prior Authorization Social [...] PA denial overturned after P2P. Martine MURRAY #[id number]. Valid: 03/28/2016--09/25/2016. 6 infusions approved. --BD documented in this encounter Plan of Treatment Upcoming Encounters Date Type Department Care Team (Late st Contact Info) Description 04/24/2025 1:30 PM EST Office Visit [facility], Department of Neurology [address] [place] [address] Johnson Ulloa MD [address] [address] [email or web address] documented as of this encounter Visit Diagnoses Not on filedocumented in this encounter Care Teams Environmental Engineering Aide Relationship Specialty Start Date End Date Khadra Barba MD 24 [place] [address] PCP - General 09/26/14 09/12/23 Danny Emanuel MD 24 [place] [address] PCP - General Internal Medicine 09/13/23 Shaggy Hopkins MD 1 [facility] [address] [place] [address] Historical LMR Provider 10/03/14 documented as of this encounter Additional Source Comments The information contained in this document represents components of the legal health record. It is not the complete legal health record.[facility]
--- OUTSIDE RECORDS SUMMARY | 2025-04-11 01:02 | XMS_ITS | Encounter Summary ---
Author Organization [facility] Address [address] [place] [address] Phone Care Team Providers Care Director Of Annual Giving Name Role Phone Khadra Barba MD Primary Care Provider Shaggy Hopkins MD Unavailable [phone] Danny Emanuel MD Primary Care Provider [phone] Encounter Details Date Type Department Care Team (Late st Contact Info) Description 12/06/2016 Procedure Pass [facility] MR Imaging, [place] [address] [place] [address] Social History Tobacco Use Types Packs/Day Years [...] Description 04/24/2025 1:30 PM EST Office Visit [facility], Department of Neurology 60 [place] [address] Johnson Ulloa MD [address] [place] [address] [email or web address] documented as of this encounter Visit Diagnoses Not on filedocumented in this encounter Care Teams Director Of Annual Giving Relationship Specialty Start Date End Date Khadra Barba MD [address] [place] [address] PCP - General 09/26/14 09/12/23 Danny Emanuel MD [address] [place] [address] PCP - General Internal Medicine 09/13/23 Shaggy Hopkins MD [address] [place] [address] Historical LMR Provider 10/03/14 documented as of this encounter Additional Source Comments The information contained in this document represents components of the legal health record. It is not the complete legal health record.[facility]
--- OUTSIDE RECORDS SUMMARY | 2025-04-11 01:02 | XMS_ITS | Encounter Summary ---
Author Organization [facility] Address [address] [place] [address] Phone Care Team Providers Care Supervisor Parking Lot Name Role Phone Khadra Barba MD Primary Care Provider Shaggy Hopkins MD Unavailable [phone] Danny Emanuel MD Primary Care Provider [phone] Encounter Details Date Type Department Care Team (Late st Contact Info) Description 08/26/2020 Procedure Pass [facility] Echocardiography 70 [place] [address] Social History Tobacco Use Types Packs/Day Years [...] Visit [facility], Department of Neurology 60 [place] [address] Johnson Ulloa MD [address] [address] [email or web address] documented as of this encounter Visit Diagnoses Not on filedocumented in this encounter Additional Health Concerns Assessment Noted Time PHQ-2 Depression Total Score: 0 08/27/19 21 4:02 PM EDT documented as of this encounter Care Teams Supervisor Parking Lot Relationship Specialty Start Date End Date Khadra Barba MD [address] [place] [address] PCP - General 09/26/14 09/12/23 Danny Emanuel MD 24 [place] [address] PCP - General Internal Medicine 09/13/23 Shaggy Hopkins MD 1 [place] [address] Historical LMR Provider 10/03/14 documented as of this encounter Additional Source Comments The information contained in this document represents components of the legal health record. It is not the complete legal health record.[facility]
--- OUTSIDE RECORDS SUMMARY | 2025-04-11 01:02 | XMS_ITS | Encounter Summary ---
Author Organization [facility] Address [address] [place] [address] Phone Care Team Providers Care Advertising Sales Executive Name Role Phone Khadra Barba MD Primary Care Provider Shaggy Hopkins MD Unavailable [phone] Danny Emanuel MD Primary Care Provider [phone] Encounter Details Date Type Department Care Team (Late st Contact Info) Description 12/06/2016 Procedure Pass [facility] MR Imaging, [place] [address] [place] [address] Social History Tobacco Use Types Packs/Day Years [...] Description 04/24/2025 1:30 PM EST Office Visit [facility], Department of Neurology 60 [place] [address] Johnson Ulloa MD [address] [place] [address] [email or web address] documented as of this encounter Visit Diagnoses Not on filedocumented in this encounter Care Teams Advertising Sales Executive Relationship Specialty Start Date End Date Khadra Barba MD [address] [place] [address] PCP - General 09/26/14 09/12/23 Danny Emanuel MD [address] [place] [address] PCP - General Internal Medicine 09/13/23 Shaggy Hopkins MD [address] [place] [address] Historical LMR Provider 10/03/14 documented as of this encounter Additional Source Comments The information contained in this document represents components of the legal health record. It is not the complete legal health record.[facility]
--- OUTSIDE RECORDS SUMMARY | 2025-04-11 01:02 | XMS_ITS | Encounter Summary ---
Author Organization [facility] Address [address] [place] [address] Phone Care Team Providers Care Carbon Paper Machine Operator Name Role Phone Khadra Barba MD Primary Care Provider Shaggy Hopkins MD Unavailable [phone] Danny Emanuel MD Primary Care Provider [phone] Encounter Details Date Type Department Care Team (Late st Contact Info) Description 03/19/2021 Procedure Pass [facility] Radiology [address] [facility] 2nd [place] [address] Social History Tobacco Use Types Packs/Day Years [...] Description 04/24/2025 1:30 PM EST Office Visit [facility], Department of Neurology 60 [place] [address] Johnson Ulloa MD [address] [address] [email or web address] documented as of this encounter Visit Diagnoses Not on filedocumented in this encounter Additional Health Concerns Assessment Noted Time PHQ-2 Depression Total Score: 0 08/27/19 21 4:02 PM EDT documented as of this encounter Care Teams Carbon Paper Machine Operator Relationship Specialty Start Date End Date Khadra Barba MD [address] [place] [address] PCP - General 09/26/14 09/12/23 Danny Emanuel MD [address] [place] [address] PCP - General Internal Medicine 09/13/23 Shaggy Hopkins MD [address] [place] [address] Historical LMR Provider 10/03/14 documented as of this encounter Additional Source Comments The information contained in this document represents components of the legal health record. It is not the complete legal health record.[facility]
--- OUTSIDE RECORDS SUMMARY | 2025-04-11 01:02 | XMS_ITS | Encounter Summary ---
Author Organization [facility] Address [address] [place] [address] Phone Care Team Providers Care Environmental Education Specialist Name Role Phone Khadra Barba MD Primary Care Provider Shaggy Hopkins MD Unavailable [phone] Danny Emanuel MD Primary Care Provider [phone] Encounter Details Date Type Department Care Team (Late st Contact Info) Description 2018 Procedure Pass [facility] MR Imaging, [place] [address] [place] [address] Social History Tobacco Use Types Packs/Day Years [...] Visit [facility], Department of Neurology 60 [place] [address] Johnson Ulloa MD [address] [address] [email or web address] documented as of this encounter Visit Diagnoses Not on filedocumented in this encounter Care Teams Environmental Education Specialist Relationship Specialty Start Date End Date Khadra Barba MD [address] [place] [address] PCP - General 09/26/14 09/12/23 Danny Emanuel MD [address] [place] [address] PCP - General Internal Medicine 09/13/23 Shaggy Hopkins MD 1 [place] [address] Historical LMR Provider 10/03/14 documented as of this encounter Additional Source Comments The information contained in this document represents components of the legal health record. It is not the complete legal health record.[facility]
--- OUTSIDE RECORDS SUMMARY | 2025-04-11 01:02 | XMS_ITS | Encounter Summary ---
Author Organization [facility] Address [address] [place] [address] Phone Care Team Providers Care Product Grader Name Role Phone Khadra Barba MD Primary Care Provider Shaggy Hopkins MD Unavailable [phone] Danny Emanuel MD Primary Care Provider [phone] Encounter Details Date Type Department Care Team (Late st Contact Info) Description 09/25/2020 Procedure Pass [facility] - [facility], [facility] [address] [place] [address] Social History Tobacco Use Types Packs/Day Years [...] 4:05 PM EDT Cameron Maurer RN * [place] Suicide Severity Rating Scale (Screener/Recent Self-Report) Question [...] Description 04/24/2025 1:30 PM EST Office Visit [facility], Department of Neurology 60 [place] [address] Johnson Ulloa MD [address] [address] [email or web address] documented as of this encounter Visit Diagnoses Not on filedocumented in this encounter Additional Health Concerns Assessment Noted Time PHQ-2 Depression Total Score: 0 08/27/19 21 4:02 PM EDT documented as of this encounter Care Teams Product Grader Relationship Specialty Start Date End Date Khadra Barba MD 24 [place] [address] PCP - General 09/26/14 09/12/23 Danny Emanuel MD 24 [place] [address] PCP - General Internal Medicine 09/13/23 Shaggy Hopkins MD [address] [address] Historical LMR Provider 10/03/14 documented as of this encounter Additional Source Comments The information contained in this document represents components of the legal health record. It is not the complete legal health record.[facility]
--- OUTSIDE RECORDS SUMMARY | 2025-04-11 01:02 | XMS_ITS | Encounter Summary ---
Author Organization [facility] Address [address] [place] [address] Phone Care Team Providers Care On Call Name Role Phone Khadra Barba MD Primary Care Provider Shaggy Hopkins MD Unavailable [phone] Danny Emanuel MD Primary Care Provider [phone] Encounter Details Date Type Department Care Team (Late st Contact Info) Description 08/07/[address] [facility] MR Imaging, [place] [address] [place] [address] Social History Tobacco Use Types Packs/Day Years [...] Description 04/24/2025 1:30 PM EST Office Visit [facility], Department of Neurology 60 [place] [address] Johnson Ulloa MD [address] [address] [email or web address] documented as of this encounter Visit Diagnoses Not on filedocumented in this encounter Care Teams On Call Relationship Specialty Start Date End Date Khadra Barba MD [address] [place] [address] PCP - General 09/26/14 09/12/23 Danny Emanuel MD [address] [place] [address] PCP - General Internal Medicine 09/13/23 Shaggy Hopkins MD 1 [place] [address] Historical LMR Provider 10/03/14 documented as of this encounter Additional Source Comments The information contained in this document represents components of the legal health record. It is not the complete legal health record.[facility]
--- OUTSIDE RECORDS SUMMARY | 2025-04-11 01:02 | XMS_ITS | Encounter Summary ---
Author Organization [facility] Address [address] [place] [address] Phone Care Team Providers Care Spa Manager/Esthetician Name Role Phone Khadra Barba MD Primary Care Provider Shaggy Hopkins MD Unavailable [phone] Danny Emanuel MD Primary Care Provider [phone] Encounter Details Date Type Department Care Team (Late st Contact Info) Description 08/07/2018 Procedure Pass [facility] MR Imaging, [address] [place] [address] Social History Tobacco Use Types Packs/Day Years [...] Description 04/24/2025 1:30 PM EST Office Visit [facility], Department of Neurology 60 [place] [address] Johnson Ulloa MD [address] [address] [email or web address] documented as of this encounter Visit Diagnoses Not on filedocumented in this encounter Care Teams Spa Manager/Esthetician Relationship Specialty Start Date End Date Khadra Barba MD [address] [place] [address] PCP - General 09/26/14 09/12/23 Danny Emanuel MD [address] [place] [address] PCP - General Internal Medicine 09/13/23 Shaggy Hopkins MD 1 [place] [address] Historical LMR Provider 10/03/14 documented as of this encounter Additional Source Comments The information contained in this document represents components of the legal health record. It is not the complete legal health record.[facility]
--- OUTSIDE RECORDS SUMMARY | 2025-04-11 01:02 | XMS_ITS | Encounter Summary ---
Author Organization [facility] Address [address] [place] [address] Phone Care Team Providers Care Dispensary Technician Name Role Phone Khadra Barba MD Primary Care Provider Shaggy Hopkins MD Unavailable [phone] Danny Emanuel MD Primary Care Provider [phone] Encounter Details Date Type Department Care Team (Late st Contact Info) Description 09/25/2020 Procedure Pass [facility] - [facility], [facility] [address] [place] [address] Social History Tobacco Use Types Packs/Day Years [...] 4:05 PM EDT Cameron Maurer RN * [place] Suicide Severity Rating Scale (Screener/Recent Self-Report) Question [...] Description 04/24/2025 1:30 PM EST Office Visit [facility], Department of Neurology 60 [place] [address] Johnson Ulloa MD [address] [address] [email or web address] documented as of this encounter Visit Diagnoses Not on filedocumented in this encounter Additional Health Concerns Assessment Noted Time PHQ-2 Depression Total Score: 0 08/27/19 21 4:02 PM EDT documented as of this encounter Care Teams Dispensary Technician Relationship Specialty Start Date End Date Khadra Barba MD 24 [place] [address] PCP - General 09/26/14 09/12/23 Danny Emanuel MD 24 [place] [address] PCP - General Internal Medicine 09/13/23 Shaggy Hopkins MD [address] [address] Historical LMR Provider 10/03/14 documented as of this encounter Additional Source Comments The information contained in this document represents components of the legal health record. It is not the complete legal health record.[facility]
--- OUTSIDE RECORDS SUMMARY | 2025-04-11 01:02 | XMS_ITS | Encounter Summary ---
Author Organization [facility] Address [address] [place] [address] Phone Care Team Providers Care Transit Department Clerk Name Role Phone Khadra Barba MD Primary Care Provider Shaggy Hopkins MD Unavailable [phone] Danny Emanuel MD Primary Care Provider [phone] Encounter Details Date Type Department Care Team (Late st Contact Info) Description 03/19/2021 Procedure Pass [facility] [address] [facility] 2nd [place] [address] Social History Tobacco Use Types Packs/Day Years [...] Office Visit [facility], Department of Neurology 60 [place] [address] Johnson Ulloa MD [address] [facility] [address] [place] [address] [email or web address] documented as of this encounter Visit Diagnoses Not on filedocumented in this encounter Additional Health Concerns Assessment Noted Time PHQ-2 Depression Total Score: 0 08/27/19 21 4:02 PM EDT documented as of this encounter Care Teams Transit Department Clerk Relationship Specialty Start Date End Date Khadra Barba MD [address] [place] [address] PCP - General 09/26/14 09/12/23 Danny Emanuel MD [address] [place] [address] PCP - General Internal Medicine 09/13/23 Shaggy Hopkins MD [address] [address] Historical LMR Provider 10/03/14 documented as of this encounter Additional Source Comments The information contained in this document represents components of the legal health record. It is not the complete legal health record.[facility]
--- OUTSIDE RECORDS SUMMARY | 2025-04-11 01:02 | XMS_ITS | Encounter Summary ---
Author Organization [facility] Address [address] [place] [address] Phone Care Team Providers Care Well Logging Captain Name Role Phone Shaggy Hopkins MD Unavailable [phone] Danny Emanuel MD Primary Care Provider [phone] Encounter Details Date Type Department Care Team (Late st Contact Info) Description 10/19/2024 Procedure Pass [facility] MR Imaging, [place] [address] [place] [address] Social History Tobacco Use Types Packs/Day Years [...] EST [facility], Department of Neurology 60 [place] [address] Johnson Ulloa MD 60 [facility] [address] [place] [address] [email or web address] documented as of this encounter Visit Diagnoses Not on filedocumented in this encounter Additional Health Concerns Assessment Noted Time PHQ-2 Depression Total Score: 0 08/27/19 21 4:02 PM EDT documented as of this encounter Care Teams Well Logging Captain Relationship Specialty Start Date End Date Danny Emanuel MD [address] [place] [address] PCP - General Internal Medicine 09/13/23 Shaggy Hopkins MD [address] [address] Historical LMR Provider 10/03/14 documented as of this encounter Additional Source Comments The information contained in this document represents components of the legal health record. It is not the complete legal health record.[facility]
--- OUTSIDE RECORDS SUMMARY | 2025-04-11 01:02 | XMS_ITS | Encounter Summary ---
Author Organization [facility] Address [address] [place] [address] Phone Care Team Providers Care Fashion Director Party Plan Sales Name Role Phone Khadra Barba MD Primary Care Provider Shaggy Hopkins MD Unavailable [phone] Danny Emanuel MD Primary Care Provider [phone] Encounter Details Date Type Department Care Team (Late st Contact Info) Description 03/19/2021 Procedure Pass [facility] [address] [facility] 2nd [place] [address] Social History Tobacco Use Types Packs/Day Years [...] 04/24/2025 1:30 PM EST Office Visit [facility], Department of Neurology 60 [place] [address] Johnson Ulloa MD [address] [address] [email or web address] documented as of this encounter Visit Diagnoses Not on filedocumented in this encounter Additional Health Concerns Assessment Noted Time PHQ-2 Depression Total Score: 0 08/27/19 21 4:02 PM EDT documented as of this encounter Care Teams Fashion Director Party Plan Sales Relationship Specialty Start Date End Date Khadra Barba MD [address] [place] [address] PCP - General 09/26/14 09/12/23 Danny Emanuel MD [address] [place] [address] PCP - General Internal Medicine 09/13/23 Shaggy Hopkins MD [address] [place] [address] Historical LMR Provider 10/03/14 documented as of this encounter Additional Source Comments The information contained in this document represents components of the legal health record. It is not the complete legal health record.[facility]
--- OUTSIDE RECORDS SUMMARY | 2025-04-11 01:03 | XMS_ITS | Encounter Summary ---
Author Organization [facility] Address [address] [place] [address] Phone Care Team Providers Care Web Database Developer Name Role Phone Khadra Barba MD Primary Care Provider Shaggy Hopkins MD Unavailable [phone] Danny Emanuel MD Primary Care Provider Encounter Details Date Type Department Care Team (Late st Contact Info) Description 04/01/2022 Procedure Pass [facility] MR Imaging, [place] [address] [place] [address] Social History Tobacco Use Types Packs/Day Years [...] Visit [facility], Department of Neurology 60 [place] [address] Johnson Ulloa MD [address] [address] [email or web address] documented as of this encounter Visit Diagnoses Not on filedocumented in this encounter Additional Health Concerns Assessment Noted Time PHQ-2 Depression Total Score: 0 08/27/19 21 4:02 PM EDT documented as of this encounter Care Teams Web Database Developer Relationship Specialty Start Date End Date Khadra Barba MD [address] [place] [address] PCP - General 09/26/14 09/12/23 Danny Emanuel MD [address] [place] [address] PCP - General Internal Medicine 09/13/23 Shaggy Hopkins MD [address] [id number] Historical LMR Provider 10/03/14 documented as of this encounter Additional Source Comments The information contained in this document represents components of the legal health record. It is not the complete legal health record.[facility]
--- OUTSIDE RECORDS SUMMARY | 2025-04-11 01:03 | XMS_ITS | Encounter Summary ---
Author Organization [facility] Address [address] [place] [address] Phone Care Team Providers Care Seamer Panty Hose Name Role Phone Khadra Barba MD Primary Care Provider Shaggy Hopkins MD Unavailable [phone] Danny Emanuel MD Primary Care Provider [phone] Encounter Details Date Type Department Care Team (Late st Contact Info) Description 08/22/2020 Telephone [facility] [address] [place] [address] Janis Baez MD [address] [place] [address] [email or web address] Social History Tobacco Use Types Packs/Day Years [...] Description 04/24/2025 1:30 PM EST Office Visit [facility], Department of Neurology 60 [place] [address] Johnson Ulloa MD [address] [address] [email or web address] documented as of this encounter Visit Diagnoses Diagnosis Encounter for preoperative screening laboratory testing for COVID-19 virus- Primary documented in this encounter Additional Health Concerns Assessment Noted Time PHQ-2 Depression Total Score: 0 08/21/19 21 11:25 AM EDT documented as of this encounter Care Teams Seamer Panty Hose Relationship Specialty Start Date End Date Khadra Barba MD [address] [place] [address] PCP - General 09/26/14 09/12/23 Danny Emanuel MD [address] [place] [address] PCP - General Internal Medicine 09/13/23 Shaggy Hopkins MD 1 [place] [address] Historical LMR Provider 10/03/14 documented as of this encounter Additional Source Comments The information contained in this document represents components of the legal health record. It is not the complete legal health record.[facility]
--- OUTSIDE RECORDS SUMMARY | 2025-04-11 01:03 | XMS_ITS | Encounter Summary ---
Author Organization [facility] Address [address] [place] [address] Phone Care Team Providers Care Light Armored Reconnaissance Officer Name Role Phone Khadra Barba MD Primary Care Provider Shaggy Hopkins MD Unavailable [phone] Danny Emanuel MD Primary Care Provider [phone] Encounter Details Date Type Department Care Team (Late st Contact Info) Description 12/27/2017 Procedure Pass [facility] MR Imaging, [place] 60 [place] [address] Social History Tobacco Use Types Packs/Day Years [...] 04/24/2025 1:30 PM EST Office Visit [facility], Department of Neurology 60 [place] [address] Johnson Ulloa MD [address] [address] [email or web address] documented as of this encounter Visit Diagnoses Not on filedocumented in this encounter Care Teams Light Armored Reconnaissance Officer Relationship Specialty Start Date End Date Khadra Barba MD [address] [place] [address] PCP - General 09/26/14 09/12/23 Danny Emanuel MD [address] [place] [address] PCP - General Internal Medicine 09/13/23 Shaggy Hopkins MD 1 [place] [address] Historical LMR Provider 10/03/14 documented as of this encounter Additional Source Comments The information contained in this document represents components of the legal health record. It is not the complete legal health record.[facility]
--- OUTSIDE RECORDS SUMMARY | 2025-04-11 01:03 | XMS_ITS | Encounter Summary ---
Author Organization [facility] Address [address] [place] [address] Phone Care Team Providers Care Vehicle Technician Name Role Phone Khadra Barba MD Primary Care Provider Shaggy Hopkins MD Unavailable [phone] Danny Emanuel MD Primary Care Provider [phone] Encounter Details Date Type Department Care Team (Late st Contact Info) Description 12/27/2017 Procedure Pass [facility] MR Imaging, [place] 60 [place] [address] Social History Tobacco Use Types Packs/Day Years [...] Visit [facility], Department of Neurology 60 [place] [address] Johnson Ulloa MD [address] [address] [email or web address] documented as of this encounter Visit Diagnoses Not on filedocumented in this encounter Care Teams Vehicle Technician Relationship Specialty Start Date End Date Khadra Barba MD [address] [place] [address] PCP - General 09/26/14 09/12/23 Danny Emanuel MD [address] [place] [address] PCP - General Internal Medicine 09/13/23 Shaggy Hopkins MD 1 [place] [address] Historical LMR Provider 10/03/14 documented as of this encounter Additional Source Comments The information contained in this document represents components of the legal health record. It is not the complete legal health record.[facility]
--- OUTSIDE RECORDS SUMMARY | 2025-04-11 01:03 | XMS_ITS | Encounter Summary ---
Author Organization [facility] Address [address] [place] [address] Phone Care Team Providers Care Statistical Typist Name Role Phone Khadra Barba MD Primary Care Provider Shaggy Hopkins MD Unavailable [phone] Danny Emanuel MD Primary Care Provider [phone] Encounter Details Date Type Department Care Team (Late st Contact Info) Description 07/27/2023 Procedure Pass [facility] MR Imaging, [place] [address] [place] [address] Social History Tobacco Use Types Packs/Day Years [...] PM EST Office Visit [facility], Department of Neurology 60 [place] [address] Johnson Ulloa MD [address] [address] [email or web address] documented as of this encounter Visit Diagnoses Not on filedocumented in this encounter Additional Health Concerns Assessment Noted Time PHQ-2 Depression Total Score: 0 08/27/19 21 4:02 PM EDT documented as of this encounter Care Teams Statistical Typist Relationship Specialty Start Date End Date Khadra Barba MD [address] [place] [address] PCP - General 09/26/14 09/12/23 Danny Emanuel MD [address] [place] [address] PCP - General Internal Medicine 09/13/23 Shaggy Hopkins MD 1 [facility] [address] [place] [address] Historical LMR Provider 10/03/14 documented as of this encounter Additional Source Comments The information contained in this document represents components of the legal health record. It is not the complete legal health record.[facility]
--- OUTSIDE RECORDS SUMMARY | 2025-04-11 01:03 | XMS_ITS | Encounter Summary ---
Author Organization [facility] Address [address] [place] [address] Phone Care Team Providers Care Beer Coil Cleaner Name Role Phone Khadra Barba MD Primary Care Provider Shaggy Hopkins MD Unavailable [phone] Danny Emanuel MD Primary Care Provider [phone] Encounter Details Date Type Department Care Team (Late st Contact Info) Description 08/07/2018 Procedure Pass [facility] MR Imaging, [place] 60 [place] [address] Social History Tobacco Use Types Packs/Day Years [...] Description 04/24/2025 1:30 PM EST Office Visit [facility], Department of Neurology 60 [place] [address] Johnson Ulloa MD [address] [address] [email or web address] documented as of this encounter Visit Diagnoses Not on filedocumented in this encounter Care Teams Beer Coil Cleaner Relationship Specialty Start Date End Date Khadra Barba MD [address] [place] [address] PCP - General 09/26/14 09/12/23 Danny Emanuel MD [address] [place] [address] PCP - General Internal Medicine 09/13/23 Shaggy Hopkins MD 1 [place] [address] Historical LMR Provider 10/03/14 documented as of this encounter Additional Source Comments The information contained in this document represents components of the legal health record. It is not the complete legal health record.[facility]
--- OUTSIDE RECORDS SUMMARY | 2025-04-11 01:03 | XMS_ITS | Encounter Summary ---
Author Organization [facility] Address [address] [place] [address] Phone Care Team Providers Care Railroad Car Loader Name Role Phone Khadra Barba MD Primary Care Provider Shaggy Hopkins MD Unavailable [phone] Danny Emanuel MD Primary Care Provider [phone] Encounter Details Date Type Department Care Team (Late st Contact Info) Description 08/25/2020 Procedure Pass [facility] MR Imaging, [place] [address] [place] [address] Social History Tobacco Use Types Packs/Day Years [...] [facility], Department of Neurology 60 [place] [address] Johnson Ulloa MD [address] [address] [email or web address] documented as of this encounter Visit Diagnoses Not on filedocumented in this encounter Additional Health Concerns Assessment Noted Time PHQ-2 Depression Total Score: 0 08/27/19 21 4:02 PM EDT documented as of this encounter Care Teams Railroad Car Loader Relationship Specialty Start Date End Date Khadra Barba MD [address] [place] [address] PCP - General 09/26/14 09/12/23 Danny Emanuel MD [address] [place] [address] PCP - General Internal Medicine 09/13/23 Shaggy Hopkins MD 1 [facility] [address] [place] [address] Historical LMR Provider 10/03/14 documented as of this encounter Additional Source Comments The information contained in this document represents components of the legal health record. It is not the complete legal health record.[facility]
--- OUTSIDE RECORDS SUMMARY | 2025-04-11 01:03 | XMS_ITS | Encounter Summary ---
Author Organization [facility] Address [address] [place] [address] Phone Care Team Providers Care Handicrafts Teacher Name Role Phone Khadra Barba MD Primary Care Provider Shaggy Hopkins MD Unavailable [phone] Danny Emanuel MD Primary Care Provider [phone] Encounter Details Date Type Department Care Team (Late st Contact Info) Description 07/15/2020 Procedure Pass [facility] MR Imaging, [place] [address] [place] [address] Social History Tobacco Use Types Packs/Day Years [...] Description 04/24/2025 1:30 PM EST Office Visit [facility], Department of Neurology 60 [place] [address] Johnson Ulloa MD [address] [address] [email or web address] documented as of this encounter Visit Diagnoses Not on filedocumented in this encounter Care Teams Handicrafts Teacher Relationship Specialty Start Date End Date Khadra Barba MD [address] [place] [address] PCP - General 09/26/14 09/12/23 Danny Emanuel MD [address] [place] [address] PCP - General Internal Medicine 09/13/23 Shaggy Hopkins MD 1 [place] [address] Historical LMR Provider 10/03/14 documented as of this encounter Additional Source Comments The information contained in this document represents components of the legal health record. It is not the complete legal health record.[facility]
--- OUTSIDE RECORDS SUMMARY | 2025-04-11 01:03 | XMS_ITS | Encounter Summary ---
Author Organization [facility] Address [address] [place] [address] Phone Care Team Providers Care Delivery Aide Name Role Phone Khadra Barba MD Primary Care Provider Shaggy Hopkins MD Unavailable [phone] Danny Emanuel MD Primary Care Provider [phone] Encounter Details Date Type Department Care Team (Late st Contact Info) Description 07/27/2023 Procedure Pass [facility] MR Imaging, [place] [address] [place] [address] Social History Tobacco Use Types Packs/Day Years [...] PM EST Office Visit [facility], Department of Neurology 60 [place] [address] Johnson Ulloa MD [address] [address] [email or web address] documented as of this encounter Visit Diagnoses Not on filedocumented in this encounter Additional Health Concerns Assessment Noted Time PHQ-2 Depression Total Score: 0 08/27/19 21 4:02 PM EDT documented as of this encounter Care Teams Delivery Aide Relationship Specialty Start Date End Date Khadra Barba MD [address] [place] [address] PCP - General 09/26/14 09/12/23 Danny Emanuel MD [address] [place] [address] PCP - General Internal Medicine 09/13/23 Shaggy Hopkins MD 1 [facility] [address] [place] [address] Historical LMR Provider 10/03/14 documented as of this encounter Additional Source Comments The information contained in this document represents components of the legal health record. It is not the complete legal health record.[facility]
--- OUTSIDE RECORDS SUMMARY | 2025-04-11 01:03 | XMS_ITS | Patient Health Record ---
Author Organization [facility] Address [address] [facility] [address] [place] [address] Care Team Providers Care Press Clippings Cutter And Paster Name Role Phone Regi Barrow Unavailable [phone] Reason For Referral No Information Medications Medication SIG (Take, Route, Fr equency, Duration) Notes Start Date End Date Status Provigil 200MG 1 ORAL daily; Duration: -3 Simon-MJ 09/07/19 13 Active Lyrica 150MG 1 ORAL three times d aily; Duration: -3 Simon-MJ 09/06/2012 Active Problems Problem Type SNOMED Code ICD Code Onset Dates Problem Status W/U Status Risk Notes Problem Gynecological examination normal ([id number]) Routine gynecological examination (V72.31) Active confirmed Major Plan Of Treatment No Information Insurance Providers Payer Name Payer Address Payer Phone Subscriber Number Group Number Insured Name Patient Relationship to Insured Coverage Start Date Coverage End Date [employer] [address] [address] AMADO DavidJOSUE [id number] BELA SAPP Self - patient is the insured
--- OUTSIDE RECORDS SUMMARY | 2025-04-11 01:03 | XMS_ITS | Encounter Summary ---
Author Organization [facility] Address [address] [place] [address] Phone Care Team Providers Care Planer Chain Offbearer Name Role Phone Khadra Barba MD Primary Care Provider Shaggy Hopkins MD Unavailable [phone] Danny Emanuel MD Primary Care Provider [phone] Encounter Details Date Type Department Care Team (Late st Contact Info) Description 12/27/2017 Procedure Pass [facility] MR Imaging, [place] [address] [place] [address] Social History Tobacco Use Types Packs/Day Years [...] Description 04/24/2025 1:30 PM EST Office Visit [facility], Department of Neurology 60 [place] [address] Johnson Ulloa MD [address] [address] [email or web address] documented as of this encounter Visit Diagnoses Not on filedocumented in this encounter Care Teams Planer Chain Offbearer Relationship Specialty Start Date End Date Khadra Barba MD [address] [place] [address] PCP - General 09/26/14 09/12/23 Danny Emanuel MD [address] [place] [address] PCP - General Internal Medicine 09/13/23 Shaggy Hopkins MD 1 [place] [address] Historical LMR Provider 10/03/14 documented as of this encounter Additional Source Comments The information contained in this document represents components of the legal health record. It is not the complete legal health record.[facility]
--- OUTSIDE RECORDS SUMMARY | 2025-04-11 01:03 | XMS_ITS | Encounter Summary ---
Author Organization [facility] Address [address] [place] [address] Phone Care Team Providers Care Manager Business Operations Name Role Phone Khadra Barba MD Primary Care Provider Shaggy Hopkins MD Unavailable [phone] Danny Emanuel MD Primary Care Provider [phone] Encounter Details Date Type Department Care Team (Late st Contact Info) Description 09/04/2020 Procedure Pass [facility] Load[facility] [address] [place] [address] Social History Tobacco Use Types Packs/Day Years [...] Description 04/24/2025 1:30 PM EST Office Visit [facility], Department of Neurology 60 [place] [address] Johnson Ulloa MD [address] [address] [email or web address] documented as of this encounter Visit Diagnoses Not on filedocumented in this encounter Additional Health Concerns Assessment Noted Time PHQ-2 Depression Total Score: 0 08/27/19 21 4:02 PM EDT documented as of this encounter Care Teams Manager Business Operations Relationship Specialty Start Date End Date Khadra Barba MD [address] [place] [address] PCP - General 09/26/14 09/12/23 Danny Emanuel MD [address] [place] [address] PCP - General Internal Medicine 09/13/23 Shaggy Hopkins MD 1 [place] [address] Historical LMR Provider 10/03/14 documented as of this encounter Additional Source Comments The information contained in this document represents components of the legal health record. It is not the complete legal health record.[facility]
--- OUTSIDE RECORDS SUMMARY | 2025-04-11 01:03 | XMS_ITS | Encounter Summary ---
Author Organization [facility] Address [address] [place] [address] Phone Care Team Providers Care Machine Shop Lead Man Name Role Phone Khadra Barba MD Primary Care Provider Shaggy Hopkins MD Unavailable [phone] Danny Emanuel MD Primary Care Provider [phone] Encounter Details Date Type Department Care Team (Late st Contact Info) Description 07/15/[address] [facility] MR Imaging, [place] [address] [place] [address] Social History Tobacco Use Types Packs/Day Years [...] Description 04/24/2025 1:30 PM EST Office Visit [facility], Department of Neurology 60 [place] [address] Johnson Ulloa MD 60 [facility] [address] [place] [address] [email or web address] documented as of this encounter Visit Diagnoses Not on filedocumented in this encounter Care Teams Machine Shop Lead Man Relationship Specialty Start Date End Date Khadra Barba MD [address] [place] [address] PCP - General 09/26/14 09/12/23 Danny Emanuel MD [address] [place] [address] PCP - General Internal Medicine 09/13/23 Shaggy Hopkins MD 1 [facility] [address] [place] [address] Historical LMR Provider 10/03/14 documented as of this encounter Additional Source Comments The information contained in this document represents components of the legal health record. It is not the complete legal health record.[facility]
--- OUTSIDE RECORDS SUMMARY | 2025-04-11 01:03 | XMS_ITS | Encounter Summary ---
Author Organization [facility] Address [address] [place] [address] Phone Care Team Providers Care Public Health Epidemiologist Name Role Phone Khadra Barba MD Primary Care Provider Shaggy Hopkins MD Unavailable [phone] Danny Emanuel MD Primary Care Provider [phone] Encounter Details Date Type Department Care Team (Late st Contact Info) Description 10/17/2020 Procedure Pass [facility] EKG [address] [place] [address] Social History Tobacco Use Types Packs/Day Years [...] [facility], Department of Neurology 60 [place] [address] Johnson Ulloa MD [address] [address] [email or web address] documented as of this encounter Visit Diagnoses Not on filedocumented in this encounter Additional Health Concerns Assessment Noted Time PHQ-2 Depression Total Score: 0 08/27/19 21 4:02 PM EDT documented as of this encounter Care Teams Public Health Epidemiologist Relationship Specialty Start Date End Date Khadra Barba MD [address] [place] [address] PCP - General 09/26/14 09/12/23 Danny Emanuel MD [address] [place] [address] PCP - General Internal Medicine 09/13/23 Shaggy Hopkins MD 1 [place] [address] Historical LMR Provider 10/03/14 documented as of this encounter Additional Source Comments The information contained in this document represents components of the legal health record. It is not the complete legal health record.[facility]
--- OUTSIDE RECORDS SUMMARY | 2025-04-11 01:03 | XMS_ITS | Encounter Summary ---
Author Organization [facility] Address [address] [place] [address] Phone Care Team Providers Care Drum Sander Offbearer Name Role Phone Khadra Barba MD Primary Care Provider Shaggy Hopkins MD Unavailable [phone] Danny Emanuel MD Primary Care Provider [phone] Encounter Details Date Type Department Care Team (Late st Contact Info) Description 07/27/2023 Procedure Pass [facility] MR Imaging, [place] [address] [place] [address] Social History Tobacco Use Types Packs/Day Years [...] [facility], Department of Neurology 60 [place] [address] Johnson Ulloa MD [address] [address] [email or web address] documented as of this encounter Visit Diagnoses Not on filedocumented in this encounter Additional Health Concerns Assessment Noted Time PHQ-2 Depression Total Score: 0 08/27/19 21 4:02 PM EDT documented as of this encounter Care Teams Drum Sander Offbearer Relationship Specialty Start Date End Date Khadra Barba MD [address] [place] [address] PCP - General 09/26/14 09/12/23 Danny Emanuel MD [address] [place] [address] PCP - General Internal Medicine 09/13/23 Shaggy Hopkins MD 1 [facility] [address] [place] [address] Historical LMR Provider 10/03/14 documented as of this encounter Additional Source Comments The information contained in this document represents components of the legal health record. It is not the complete legal health record.[facility]
--- OUTSIDE RECORDS SUMMARY | 2025-04-11 01:03 | XMS_ITS | Encounter Summary ---
Author Organization [facility] Address [address] [place] [address] Phone Care Team Providers Care Spiritual Advisor Name Role Phone Khadra Barba MD Primary Care Provider Shaggy Hopkins MD Unavailable [phone] Danny Emanuel MD Primary Care Provider [phone] Encounter Details Date Type Department Care Team (Late st Contact Info) Description 03/25/2022 Procedure Pass [facility] - [facility] Main [place] [address] [place] [address] Social History Tobacco Use Types Packs/Day Years [...] 11:33 AM JESSICAT Glenna Quintana RN * [place] Suicide Severity Rating Scale (Screener/Recent Self-Report) Question [...] Description 04/24/2025 1:30 PM EST Office Visit [facility], Department of Neurology 60 [place] [address] Johnson Ulloa MD 60 [facility] [address] [place] [address] [email or web address] documented as of this encounter Visit Diagnoses Not on filedocumented in this encounter Additional Health Concerns Assessment Noted Time PHQ-2 Depression Total Score: 0 08/27/19 21 4:02 PM EDT documented as of this encounter Care Teams Spiritual Advisor Relationship Specialty Start Date End Date Khadra Barba MD 24 [place] [address] PCP - General 09/26/14 09/12/23 Danny Emanuel MD 24 [place] [address] PCP - General Internal Medicine 09/13/23 Shaggy Hopkins MD [address] [address] Historical LMR Provider 10/03/14 documented as of this encounter Additional Source Comments The information contained in this document represents components of the legal health record. It is not the complete legal health record.[facility]
--- OUTSIDE RECORDS SUMMARY | 2025-04-11 01:03 | XMS_ITS | Encounter Summary ---
Author Organization [facility] Address [address] [place] [address] Phone Care Team Providers Care Director Sales And Marketing Name Role Phone Khadra Barba MD Primary Care Provider Shaggy Hopkins MD Unavailable [phone] Danny Emanuel MD Primary Care Provider [phone] Encounter Details Date Type Department Care Team (Late st Contact Info) Description 09/15/2020 Procedure Pass [facility] MR Imaging, [place] [address] [place] [address] Social History Tobacco Use Types Packs/Day Years [...] PM EST Office Visit Bi and [facility], Department of Neurology [address] [place] [address] Johnson Ulloa MD [address] [address] [email or web address] documented as of this encounter Visit Diagnoses Not on filedocumented in this encounter Additional Health Concerns Assessment Noted Time PHQ-2 Depression Total Score: 0 08/27/19 21 4:02 PM EDT documented as of this encounter Care Teams Director Sales And Marketing Relationship Specialty Start Date End Date Khadra Barba MD [address] [place] [address] PCP - General 09/26/14 09/12/23 Danny Emanuel MD [address] [place] [address] PCP - General Internal Medicine 09/13/23 Shaggy Hopkins MD 1 [facility] [address] [place] [address] Historical LMR Provider 10/03/14 documented as of this encounter Additional Source Comments The information contained in this document represents components of the legal health record. It is not the complete legal health record.[facility]
--- OUTSIDE RECORDS SUMMARY | 2025-04-11 01:03 | XMS_ITS | Encounter Summary ---
Author Organization [facility] Address [address] [place] [address] Phone Care Team Providers Care Director Of Hotel Name Role Phone Khadra Barba MD Primary Care Provider Shaggy Hopkins MD Unavailable [phone] Danny Emanuel MD Primary Care Provider [phone] Encounter Details Date Type Department Care Team (Late st Contact Info) Description 04/01/2022 Procedure Pass [facility] MR Imaging, [place] [address] [place] [address] Social History Tobacco Use Types Packs/Day Years [...] Visit [facility], Department of Neurology [address] [place] [address] Johnson Ulloa MD [address] [address] [email or web address] documented as of this encounter Visit Diagnoses Not on filedocumented in this encounter Additional Health Concerns Assessment Noted Time PHQ-2 Depression Total Score: 0 08/27/19 21 4:02 PM EDT documented as of this encounter Care Teams Director Of Hotel Relationship Specialty Start Date End Date Khadra Barba MD [address] [place] [address] PCP - General 09/26/14 09/12/23 Danny Emanuel MD [address] [place] [address] PCP - General Internal Medicine 09/13/23 Shaggy Hopkins MD 1 [place] [id number] Historical LMR Provider 10/03/14 documented as of this encounter Additional Source Comments The information contained in this document represents components of the legal health record. It is not the complete legal health record.[facility]
--- OUTSIDE RECORDS SUMMARY | 2025-04-11 01:03 | XMS_ITS | Encounter Summary ---
Author Organization [facility] Address [address] [place] [address] Phone Care Team Providers Care Conductor Orchestra Name Role Phone Khadra Barba MD Primary Care Provider Shaggy Hopkins MD Unavailable [phone] Danny Emanuel MD Primary Care Provider [phone] Encounter Details Date Type Department Care Team (Late st Contact Info) Description 07/15/2020 Procedure Pass [facility] MR Imaging, [place] [address] [place] [address] Social History Tobacco Use Types Packs/Day Years [...] Description 04/24/2025 1:30 PM EST Office Visit [facility], Department of Neurology [address] [place] [address] Johnson Ulloa MD [address] [address] [email or web address] documented as of this encounter Visit Diagnoses Not on filedocumented in this encounter Care Teams Conductor Orchestra Relationship Specialty Start Date End Date Khadra Barba MD [address] [place] [address] PCP - General 09/26/14 09/12/23 Danny Emanuel MD [address] [place] [address] PCP - General Internal Medicine 09/13/23 Shaggy Hopkins MD 1 [place] [address] Historical LMR Provider 10/03/14 documented as of this encounter Additional Source Comments The information contained in this document represents components of the legal health record. It is not the complete legal health record.[facility]
--- OUTSIDE RECORDS SUMMARY | 2025-04-11 01:03 | XMS_ITS | Encounter Summary ---
Author Organization [facility] Address [address] [place] [address] Phone Care Team Providers Care Communications Writer Name Role Phone Khadra Barba MD Primary Care Provider Shaggy Hopkins MD Unavailable [phone] Danny Emanuel MD Primary Care Provider [phone] Encounter Details Date Type Department Care Team (Late st Contact Info) Description 04/01/2022 Procedure Pass [facility] MR Imaging, [place] [address] [place] [address] Social History Tobacco Use Types Packs/Day Years [...] Office Visit [facility], Department of Neurology [address] [place] [address] Johnson Ulloa MD [address] [address] [email or web address] documented as of this encounter Visit Diagnoses Not on filedocumented in this encounter Additional Health Concerns Assessment Noted Time PHQ-2 Depression Total Score: 0 08/27/19 21 4:02 PM EDT documented as of this encounter Care Teams Communications Writer Relationship Specialty Start Date End Date Khadra Barba MD [address] [place] [address] PCP - General 09/26/14 09/12/23 Danny Emanuel MD [address] [place] [address] PCP - General Internal Medicine 09/13/23 Shaggy Hopkins MD 1 [place] [id number] Historical LMR Provider 10/03/14 documented as of this encounter Additional Source Comments The information contained in this document represents components of the legal health record. It is not the complete legal health record.[facility]
--- OUTSIDE RECORDS SUMMARY | 2025-04-11 01:03 | XMS_ITS | Encounter Summary ---
Author Organization [facility] Address [address] [place] [address] Phone Care Team Providers Care Contact Center Engineer Name Role Phone Khadra Barba MD Primary Care Provider Shaggy Hopkins MD Unavailable [phone] Danny Emanuel MD Primary Care Provider [phone] Encounter Details Date Type Department Care Team (Late st Contact Info) Description 04/13/2022 Telephone [facility] Otolaryngology [address] [place], [place] [address]-[address] [place] [address] Johnson Navarro MD [address] [place] [phone] [email or web address] Social History Tobacco Use Types Packs/Day Years [...] Description 04/24/2025 1:30 PM EST Office Visit [facility], Department of Neurology [address] [place] [address] Johnson Ulloa MD [address] [address] [email or web address] documented as of this encounter Visit Diagnoses Not on filedocumented in this encounter Additional Health Concerns Assessment Noted Time PHQ-2 Depression Total Score: 0 08/27/19 21 4:02 PM EDT documented as of this encounter Care Teams Contact Center Engineer Relationship Specialty Start Date End Date Khadra Barba MD [address] [place] [address] PCP - General 09/26/14 09/12/23 Danny Emanuel MD [address] [place] [address] PCP - General Internal Medicine 09/13/23 Shaggy Hopkins MD 1 [facility] [address] [place] [address] Historical LMR Provider 10/03/14 documented as of this encounter Additional Source Comments The information contained in this document represents components of the legal health record. It is not the complete legal health record.[facility]
--- OUTSIDE RECORDS SUMMARY | 2025-04-11 01:03 | XMS_ITS | Encounter Summary ---
Author Organization [facility] Address [address] [place] [address] Phone Care Team Providers Care Attic Fans Mechanic Name Role Phone Shaggy Hopkins MD Unavailable [phone] Danny Emanuel MD Primary Care Provider Encounter Details Date Type Department Care Team (Late st Contact Info) Description 09/13/2023 Procedure Pass [address] [address] Social History Tobacco Use Types Packs/Day Years [...] [facility], Department of Neurology [address] [place] [address] Johnson Ulloa MD [address] [place] [address] [email or web address] documented as of this encounter Visit Diagnoses Not on filedocumented in this encounter Additional Health Concerns Assessment Noted Time PHQ-2 Depression Total Score: 0 08/27/19 21 4:02 PM EDT documented as of this encounter Care Teams Attic Fans Mechanic Relationship Specialty Start Date End Date Danny Emanuel MD [address] [place] [address] PCP - General Internal Medicine 09/13/23 Shaggy Hopkins MD 1 [facility] [address] [place] [address] Historical LMR Provider 10/03/14 documented as of this encounter Additional Source Comments The information contained in this document represents components of the legal health record. It is not the complete legal health record.[facility]
--- OUTSIDE RECORDS SUMMARY | 2025-04-11 01:03 | XMS_ITS | Encounter Summary ---
Author Organization [facility] Address [address] [place] [address] Phone Care Team Providers Care Production Support Consultant Name Role Phone Shaggy Hopkins MD Unavailable [phone] Danny Emanuel MD Primary Care Provider [phone] Encounter Details Date Type Department Care Team (Late st Contact Info) Description 10/13/2023 Procedure Pass [facility] [address] [place] [address] Social History Tobacco Use Types Packs/Day Years [...] Description 04/24/2025 1:30 PM EST Office Visit [facility], Department of Neurology [address] [place] [address] Johnson Ulloa MD [address] [place] [address] [email or web address] documented as of this encounter Visit Diagnoses Not on filedocumented in this encounter Additional Health Concerns Assessment Noted Time PHQ-2 Depression Total Score: 0 08/27/19 21 4:02 PM EDT documented as of this encounter Care Teams Production Support Consultant Relationship Specialty Start Date End Date Danny Emanuel MD [address] [place] [address] PCP - General Internal Medicine 09/13/23 Shaggy Hopkins MD [address] [address] Historical LMR Provider 10/03/14 documented as of this encounter Additional Source Comments The information contained in this document represents components of the legal health record. It is not the complete legal health record.[facility]
--- OUTSIDE RECORDS SUMMARY | 2025-04-11 01:03 | XMS_ITS | Clinical Summary ---
Author Organization [facility] Address [address] [place] [address] Phone Care Team Providers Care Chisel Mortiser Operator Name Role Phone Shaggy Hopkins MD Unavailable [phone] Danny Ha MD Primary Care Provider [phone] Allergies Active Allergy Reactions Criticality Noted Date [...] Active diphenhydramine -lidocaine-alum -mag-simethicon e (MAGIC MOUTHWASH-BLM) [id number] mg/30mL suspension Swish and spit 10 mL [...] Team Description 02/07/2025 8:30 AM EDT Telemedicine [facility], Department of Neurology [address] [place] [address] Johnson Ulloa MD Multiple sclerosis (Primary Dx) 02/05/2025 4:40 PM EDT - 02/05/2025 11:59 PM EDT Hospital Encounter [facility] MR Imaging, [place] [address] [place] [address] Johsnon Ulloa MD Discharge Disposition: Home or Self Care 01/30/2025 Telephone [facility], Department of Neurology [address] [place] [address] Johnson Ulloa MD New symptoms 10/19/2024 Procedure Pass [facility] MR Imaging, [place] [address] [place] [address] 10/19/2024 Procedure Pass [facility] MR Imaging, [place] [address] [place] [address] 10/19/2024 Procedure Pass [facility] MR Imaging, [place] [address] [place] [address] from Last 3 Months Immunizations No known [...] Description 04/24/2025 1:30 PM EST Office Visit [facility], Department of Neurology [address] [place] [address] Johnson Ulloa MD 60 [place] [address] [email or web address] Health Maintenance Due Date Last Done Comments [...] clinician's provided indication for this examination in [facility]: *Multiple sclerosis, monitor; Known Multple Sclerosis, please [...] clinician's provided indication for this examination in [facility]: *Multiple sclerosis, monitor; Known Multple Sclerosis, please [...] clinician's provided indication for this examination in [facility]: * Multiple sclerosis, monitor; Known Multple Sclerosis, [...] Status: Finalized Attending MD: TAMARA TESFAYE MD [id number] Procedure: Colonoscopy Indications: High risk colon cancer surveillance: Personal history of multiple (3 or more) adenomas Patient Profile: 52F history of adenomas (3 in 2020) presenting for surveillance colonoscopy. Providers: TAMARA TESFAYE MD [id number], SARAH COOPER RN Referring MD: DANNY HA [...] based on pathology results. Tamara TESFAYE MD [id number] 10/13/2023 12:19:55 PM Number of Addenda: 0 Note Initiated On: 10/13/2023 11:45 AM us Danny Ha MD GI PROCEDURE ORDERABLES Final Result * Hepatitis B core antibody, total (09/23/2022 3:01 PM EDT) HEP B CORE AB, TOT Nonreactive Nonreactive [facility] Comment: Blood 09/23/2022 3:01 PM EDT 09/23/2022 3:11 PM EDT us Johnson Ulloa MD LAB BLOOD BKR ORD ERABLES Final Result Performing Organization Address City/State/[facility] Co de Phone Number [facility] [address] [place] [phone] from Last 3 Months or Most Recently Relevant to Health Maintenance Insurance [facility] EPO [employer] O POS [facility]PO [employer] O POS EPO [employer] POS EPO Care Teams Chisel Mortiser Operator Relationship Specialty Start Date End Date Danny Ha MD [address] [place] [address] PCP - General Internal Medicine 09/13/23 Shaggy Hopkins MD 1 [facility] [address] [place] [address] Historical LMR Provider 10/03/14 Additional Source Comments The information contained in this document represents components of the legal health record. It is not the complete legal health record.[facility]
== END 2025-04-10 13:09 | disposition home or self-care (01) ==
LOC: HO.HKASLDS 13:08
PROVIDERS: PCP Internal Medicine; Visit Provider Internal Medicine Rheumatology
DX: M02.30 Reiter's disease, unspecified site (principal); Z79.899 Other long term (current) drug therapy
CPT/HCPCS: 36415; 85652; 86140